=== PATIENT | male | born 1955 | race Caucasian/White ===

== ENCOUNTER → 2017-10-31 09:02 | Outpatient (CLI) | payer OTHER, SELFPAY ==
--- NOTE | 2017-10-31 09:05 | US_ITS ---
STUDY: ULTRASOUND BREAST - RIGHT REASON FOR EXAM: Male, 62 years old. Palpable lump in the right breast. TECHNIQUE: Axial and longitudinal images of the RIGHT breast were performed with a high resolution ultrasound transducer. COMPARISON: Comparison is made with prior mammogram done earlier today. FINDINGS: RIGHT Breast: The palpable abnormality corresponds to a 2.2 cm x 2.1 cm x 0.9 cm hypoechoic density just adjacent to the nipple. A biopsy is recommended for further evaluation. US/Breast Limited Unilateral IMPRESSION: 2.2 cm x 2.1 cm x 0.9 cm hypoechoic density adjacent to the nipple. A biopsy is recommended for further evaluation. ASSESSMENT CATEGORY: BIRADS Category 4: Suspicious - Biopsy Should Be Considered. A letter regarding these results will be sent to the patient by the facility within 30 days. Electronically Signed: John Gilmore MD at 10:49 EDT Tel [phone], Service support ,
--- NOTE | 2017-10-31 09:17 | BI_ITS ---
MAMMOGRAPHY - BILATERAL DIAGNOSTIC REASON FOR EXAM: Male, 62 years old. Right breast lump and tenderness for several months. PERTINENT HISTORY: Mother with breast cancer. TECHNIQUE: Digital bilateral breast cabrera (3D mammographic acquisition) in the CC and MLO projections. 2-D mediolateral oblique (MLO) and craniocaudad (CC) views of both breasts were obtained. CAD: Full Field Digital Mammography with Computer Added Detection was performed. COMPARISON: None. Baseline examination. FINDINGS: Breast Composition: There are scattered areas of fibroglandular density. There are no dominant masses or suspicious calcifications. Asymmetry of breast tissue were more breast tissue is seen in the retroareolar region of the right breast as compared to the left side. No other significant abnormalities are identified. BI/DIAG MAMM W/CAD, BILAT IMPRESSION: Negative diagnostic mammogram. With the patient's history of a palpable lump in the right breast, correlation with ultrasound is recommended. ASSESSMENT CATEGORY: BIRADS Category 0: Incomplete. Need additional imaging evaluation. A letter regarding these results will be sent to the patient by the facility within 30 days. Approximately 10% of breast cancers are not detected by mammography. A normal mammogram should not delay biopsy of a clinically suspicious abnormality. Electronically Signed: John Gilmore MD at 10:13 EDT Tel [phone], Service support ,
[2017-10-31 10:28] LABS: Absolute Lymphocyte Count 1.58 X10^3/ul (0.83-4.51); Absolute Neutrophil Count 2.1 X10^3/uL (2.0-7.7); Basophil# 0.05 X10^3/uL; Basophil% 1.1 % (0-1); Eosinophil# 0.17 X10^3/uL; Eosinophils% 3.9 % (0-5); Hematocrit 39.6 % (40-54); Hemoglobin 13.4 g/dl (13.0-16.5); Lymphocyte # 1.58 X10^3/ul (4.0); Lymphocyte % 36.2 % (19-41); Mean Corp Hgb Conc 33.8 g/gl (32-36); Mean Corpuscular Volume 88.6 fL (80-94); Mean Platelet Vol. 10.2 fl (6.2-12.0); Monocyte# 0.46 X10^3/uL; Monocyte% 10.5 % (0-10); Neutrophil # 2.11 X10^3/uL (2.7-7.7); Neutrophil % 48.3 % (47-70); POSITIVE COUNT NO; POSITIVE DIFFERENTIAL NO; POSITIVE MORPHOLOGY NO; Platelet Count 168 K/mm3 (150-450); RBC Distribution Width CV 13.5 % (11.6-14.6); RBC Distribution Width SD 43.5 fl (35.1-43.9); Red Blood Count 4.47 M/mm3 (4.6-6.2); White Blood Count 4.4 K/mm3 (4.4-11.0)
[2017-10-31 10:41] LABS: ALB/GLOB Ratio 1.6 RATIO (0.9-2.4); AST(SGOT) 21 U/L (15-37); Alanine Aminotransfer ALT/SGPT 25 U/L (16-61); Albumin, Serum 4.1 g/dL (3.2-5.0); Alkaline Phosphatase 60 U/L (45-117); Anion Gap 5 (5-15); BUN 18 mg/dL (7-18); BUN/Creat Ratio 19.8 RATIO (10-20); Calcium,Total 8.5 mg/dL (8.5-10.1); Chloride 109 mmol/L (98-107); Cholesterol 178 mg/dL (200); Creatinine, Serum 0.91 mg/dL (0.70-1.30); EST Glomerular Filtration Rate 89 mL/min (>60); Est Glom Filt Rate - Afr Amer 108 mL/min (>60); Globulin 2.5 g/dL (2.2-4.2); Glucose 81 mg/dL (74-106); High Density Lipoprotein 72 mg/dL; Potassium 4.1 mmol/L (3.5-5.1); Protein, Total 6.6 g/dL (6.4-8.2); Sodium Level 140 mmol/L (136-145); Triglycerides 72 mg/dL; Very Low Density Lipoprotein 14 mg/dL (5-40)
== END ==
PROVIDERS: Family Provider Internal Medicine; PCP Internal Medicine; Referring Provider Internal Medicine; Visit Provider Internal Medicine
DX: N63.10 Unspecified lump in the right breast, unspecified quadrant (principal); I51.9 Heart disease, unspecified; Q23.1 Congenital insufficiency of aortic valve
CPT/HCPCS: 36415; 76642; 77062; 77066; 80053; 80061; 85025; G0279

== ENCOUNTER → 2017-11-05 10:00 | Outpatient (CLI) | payer OTHER, SELFPAY ==
--- NOTE | 2017-11-05 | BRBX_PTH ---
PATIENT: AFSHIN FARFAN LOC: [facility] U#:[id number] AGE/SX: 69/M ROOM: RE11/05/[address]: Dr. Everardo Cordon MD : 1955 BED: DIS: SPEC #: [id number] RECD: 11/06/17 13:49 STATUS: AQUILINO FUENTES #: [id number] SEUN: 11/05/17 00:[address]: Everardo Cordon DEPT: SURGICAL PATHOLOGY RECD BY: George Marquez ENTERED: 11/06/17 13:50 SP TYPE: BREAST BX OTHR DR: Dr. Araceli Lee MD Tissues: Right breast, NOS Procedures: Surgery Specimen Level IV HEADER OPERATION: Right breast mammotome biopsy PRE-OP DIAGNOSIS: Right breast mass TISSUE SUBMITTED: Right breast tissue ISCHEMIC TIME: 1 second FIXATION TIME: 31.5 hours MICROSCOPIC DIAGNOSIS Right breast, mammotome core biopsy: Male breast tissue, consistent with gynecomastia. CHAI:rodolfo 11/07/17 COMMENT Please make reference to previous specimen ([id number]) left breast lump, core biopsy with diagnosis of male breast tissue, negative for malignancy. MICROSCOPIC DESCRIPTION Slides are reviewed. GROSS DESCRIPTION Received in fixative is one container labeled with the patient's name and designated right breast. The specimen consists of three elongated fragments of camacho-yellow fibroadipose tissue that in aggregate measure 2 x 0.6 x 0.1 cm. The entire specimen is submitted in one cassette. / CAHI:rodolfo 11/06/17 TC:5 CPT: 81658
== END ==
PROVIDERS: Family Provider Internal Medicine; PCP Internal Medicine; Referring Provider Surgery; Visit Provider Surgery
DX: N63.10 Unspecified lump in the right breast, unspecified quadrant (principal)
CPT/HCPCS: 88305

== ENCOUNTER → 2018-05-23 08:54 | Outpatient (CLI) | payer OTHER, SELFPAY ==
--- NOTE | 2018-05-23 08:55 | RAD_ITS ---
STUDY: X-RAY - LEFT KNEE REASON FOR EXAM: Male, 63 years old. Pain. TECHNIQUE: 5 view(s) of the knee. COMPARISON: None. FINDINGS: There is generalized osteopenia. There is lateral plate-screw fixation of the proximal tibia. Normal proximal tibiofibular articulation. There is a corticated lucency through the inferior portion of the patella compatible with remote trauma. 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 There is chondrocalcinosis. RAD/Knee 4 or More Views IMPRESSION: Osteopenia with postsurgical changes of the proximal tibia. Corticated lucency through the patella compatible with remote trauma. Tricompartmental arthrosis. Chondrocalcinosis. Electronically Signed: Anoop Cox MD at 17:17 EDT , Service support ,
== END ==
PROVIDERS: Family Provider Internal Medicine; PCP Internal Medicine; Referring Provider Orthopaedic Surgery; Visit Provider Orthopaedic Surgery
DX: M25.562 Pain in left knee (principal)
CPT/HCPCS: 73564

== ENCOUNTER → 2018-05-24 10:34 | Outpatient (CLI) | payer OTHER, SELFPAY ==
[2017-11-28 14:28] VITALS: BMI 21.3
--- NOTE | 2018-05-24 10:36 | ECHOD_ITS ---
Reason For Study: Valve Evaluation Procedure This was a 2D Doppler, Color Flow transthoracic echocardiogram. Exam performed in department. Left Ventricle Normal LV size. Mild concentric left ventricular hypertrophy. Left ventricular systolic function is normal. The estimated ejection fraction is 55 %. Stage 2 diastolic dysfunction. No regional wall motion abnormalities noted. Right Ventricle Normal RV size. Normal systolic function. Atria The left atrium is moderately enlarged. The right atrium is mildly enlarged. Mitral Valve Normal mitral valve. Mild (1+) eccentric mitral valve insufficiency. Tricuspid Valve Normal tricuspid valve. Mild (1+) tricuspid valve insufficiency. Pulmonary artery systolic pressure is 40 mmHg. Aortic Valve Moderate focal aortic valve calcification. Repaired Bicuspid. Peak aortic valve gradient 130 mmHg. Mean aortic valve gradient 78 mmHg. Severe aortic stenosis. Calculated aortic valve area (continuity equation) is 0.5 cm2. Mild (1+) aortic valve insufficiency. Pulmonic Valve Normal pulmonic valve. Great Vessels Normal aortic root. The pulmonary artery is normal size. Normal inferior vena cava. Pericardium/Pleural No pericardial effusion. MMode/2D Measurements & Calculations LVIDd: 5.6 cm IVSd: 1.2 cm LVOT diam: 2.1 cm LVIDs: 4.0 cm LVPWd: 1.3 cm LVOT area: 3.6 cm2 RVDd: 4.0 cm FS: 28.4 % Ao root diam: 3.4 cm LAV(MOD-bp): 102.1 ml LA A4 area: 27.6 cm2 ACS: 0.53 cm LAV(MOD-bp) Indexed: 54.0 ml/m2 LAV(MOD-sp2): 101.0 ml LAV(MOD-sp4): 97.1 ml RA A4 area: 20.1 cm2 Time Measurements MV dec time: 0.30 sec Doppler Measurements & Calculations MV E max dane: 74.0 cm/sec Lat Peak E' Adne: 4.8 cm/sec Med Peak E' Dane: 8.0 cm/sec MV A max dane: 53.4 cm/sec E/E' lat: 15.3 E/E' med: 9.2 MV E/A: 1.4 MV V2 max: 96.2 cm/sec MV P1/2t max dane: 95.3 cm/sec Ao V2 max: 570.1 cm/sec MV max P.7 mmHg MV P1/2t: 47.7 msec Ao max P.1 mmHg MV V2 mean: 46.2 cm/sec MV dec slope: 585.7 cm/sec2 Ao V2 mean: 412.7 cm/sec MV mean P.1 mmHg Ao mean P.1 mmHg MV V2 VTI: 22.0 cm MVA(P1/2t): 4.6 cm2 Ao V2 VTI: 153.4 cm MVA(VTI): 3.9 cm2 RADHA(I,D): 0.56 cm2 RADHA(V,D): 0.52 cm2 AI max dane: 357.2 cm/sec LV V1 max: 84.0 cm/sec SV(LVOT): 85.5 ml AI max P.0 mmHg LV V1 max P.8 mmHg LV V1 mean P.7 mmHg AI dec slope: 181.8 cm/sec2 LV V1 mean: 59.9 cm/sec AI P1/2t: 575.6 msec LV V1 VTI: 24.1 cm PA V2 max: 97.4 cm/sec TR max dane: 297.0 cm/sec TR max P.5 mmHg Interpretation Summary Normal LV size. Mild concentric left ventricular hypertrophy. Left ventricular systolic function is normal. The estimated ejection fraction is 55 %. Stage 2 diastolic dysfunction. Pulmonary artery systolic pressure is 40 mmHg. Mean aortic valve gradient 78 mmHg. Severe aortic stenosis. Calculated aortic valve area (continuity equation) is 0.5 cm2. Compared to the previous the AV is worse. Compared to the previous the AV is worse. Ordering Physician: Jerzy Guo Referring Physician: Jerzy Guo Performed By: Van Quintanilla RCS
== END ==
PROVIDERS: Family Provider Internal Medicine; PCP Internal Medicine; Referring Provider Internal Medicine Cardiovascular Disease; Visit Provider Internal Medicine Cardiovascular Disease
DX: Z86.79 Personal history of other diseases of the circulatory system (principal); Z98.890 Other specified postprocedural states
CPT/HCPCS: 93306

== ENCOUNTER → 2018-05-28 10:38 | Outpatient (CLI) | payer OTHER, SELFPAY ==
[2018-05-24 09:47] VITALS: BMI 21.4
[2018-05-28 11:55] LABS: Anion Gap 7 (5-15); BUN 17 mg/dL (7-18); BUN/Creat Ratio 17.7 RATIO (10-20); Calcium,Total 8.6 mg/dL (8.5-10.1); Chloride 107 mmol/L (98-107); Creatinine, Serum 0.96 mg/dL (0.70-1.30); EST Glomerular Filtration Rate 83 mL/min (>60); Est Glom Filt Rate - Afr Amer 101 mL/min (>60); Glucose 91 mg/dL (74-106); Potassium 4.4 mmol/L (3.5-5.1); Sodium Level 142 mmol/L (136-145)
== END ==
PROVIDERS: Family Provider Internal Medicine; PCP Internal Medicine; Referring Provider Nurse Practitioner Family; Visit Provider Nurse Practitioner Family
DX: Q23.1 Congenital insufficiency of aortic valve (principal); I49.3 Ventricular premature depolarization
CPT/HCPCS: 36415; 80048

== ENCOUNTER → 2018-06-24 08:53 | Outpatient (CLI) | payer OTHER, SELFPAY ==
[2018-05-24 09:47] VITALS: BMI 21.4
--- NOTE | 2018-06-24 08:54 | ECHOTEE_ITS ---
Reason For Study: BICUSPID AV Medication ELLE probe passed without difficulty. No complications were noted. Cetacaine Topical [place] given X3 orally. Versed 1 mg given slow IVP. Fentanyl 25 mcg given slow IVP. Left Ventricle Normal LV size. Left ventricular systolic function is normal. The estimated ejection fraction is 60 %. No regional wall motion abnormalities noted. Right Ventricle Normal RV size. Normal systolic function. Atria Intact atrial septum. The left atrium is mildly enlarged. No thrombus is detected in the left atrial appendage. Normal right atrium. Mitral Valve Normal mitral valve. Mild (1+) eccentric mitral valve insufficiency. Tricuspid Valve Normal tricuspid valve. Mild tricuspid valve insufficiency. Aortic Valve Bicuspid aortic valve. Moderate aortic stenosis. Mild-Moderate (1-2+) eccentric aortic valve insufficiency. Pulmonic Valve Normal pulmonic valve. Vessels Normal aortic root. Normal arch. The pulmonary artery is normal size. Pericardium No pericardial effusion. Interpretation Summary Normal LV size. Left ventricular systolic function is normal. The estimated ejection fraction is 60 %. No thrombus is detected in the left atrial appendage. Mild (1+) eccentric mitral valve insufficiency. Mild tricuspid valve insufficiency. Moderate aortic stenosis. Bicuspid aortic valve. Mild-Moderate (1-2+) eccentric aortic valve insufficiency. Ordering Physician: Jerzy Guo Referring Physician: Araceli Lee Performed By: Erin Montemayor, RDCS, RVT
== END ==
LOC: CVS 08:54
PROVIDERS: Family Provider Internal Medicine; PCP Internal Medicine; Referring Provider Internal Medicine Cardiovascular Disease; Visit Provider Internal Medicine Cardiovascular Disease
DX: Q23.1 Congenital insufficiency of aortic valve (principal); I49.3 Ventricular premature depolarization; I71.2 Thoracic aortic aneurysm, without rupture; Z86.79 Personal history of other diseases of the circulatory system; Z98.890 Other specified postprocedural states
CPT/HCPCS: 93312; 93320; 93325; J7040; A4216

== ENCOUNTER 2018-08-22 09:35 | Inpatient (IN) | payer OTHER, SELFPAY ==
[2018-07-18 13:28] VITALS: BMI 21.4
[2018-08-22] VITALS (13 sets, daily range): BP systolic 108–122; BP diastolic 57–89; PULSE 67–82; RESP 13–18; TEMP 36.6–37.1; O2SAT 92–98; BMI 21.2; BMI 20.8
--- NOTE | 2018-08-22 09:57 | NURSING ---
PAGED NEUROLOGY FOR
--- NOTE | 2018-08-22 10:13 | CT_ITS ---
STUDY: CT BRAIN WITHOUT CONTRAST REASON FOR EXAM: Male, 63 years old. [place] onset of visual changes. RADIATION DOSAGE (If Supplied By Facility): CTDIvol = ( 44.99 ) mGy, DLP = ( 796.11 ) mGycm TECHNIQUE: Transaxial CT imaging of the brain was performed without administration of intravenous contrast material. Individualized dose optimization techniques were used for this CT. COMPARISON: No relevant priors. FINDINGS: Normal soft tissue structures. Normal calvarium. Focal area of decreased attenuation in the insular cortex of the left temporal lobe. This may represent changes secondary to early ischemic changes. Normal size ventricles and extra-axial spaces for the patient's age. Normal white matter tracts of the cerebral hemispheres. Normal basal ganglia and thalami. Normal brainstem. Normal cerebellum. There is no intracranial hemorrhage. There are no findings of an acute ischemic infarction. Normal visualized paranasal sinuses. CT/Brain/Head without Contrast IMPRESSION: Focal hypodensity seen in the insular cortex of the left temporal lobe. Focal ischemic change should be ruled out. Electronically Signed: John Gilmore, at 11:07 EDT , Service support ,
--- NOTE | 2018-08-22 10:13 | EKG12_ITS ---
Test Reason : DYSRHYTHMIA Blood Pressure : / mmHG Vent. Rate : 071 BPM Atrial Rate : 071 BPM P-R Int : 208 ms QRS Dur : 104 ms QT Int : 404 ms P-R-T Axes : 020 013 138 degrees QTc Int : 439 ms Normal sinus rhythm Left ventricular hypertrophy with repolarization abnormality Abnormal ECG Confirmed by SADAF PARKER, WENDY ([id number]), dictionary editor MANDO LING ([id number]) on 08/26/2018 12:49:03 PM Referred By: Jesus Alberto Reilly Confirmed By:WENDY TALAVERA MD
--- NOTE | 2018-08-22 10:15 | RAD_ITS ---
STUDY: X-RAY CHEST REASON FOR EXAM: Male, 63 years old. Visual changes and possible stroke. TECHNIQUE: Single AP portable view of the chest. COMPARISON: None. FINDINGS: Surgical clips are seen overlying the lateral aspect of the right upper lobe. There is blunting of the left costo phrenic angle with underlying atelectasis and/or infiltration. Sternal cerclage wires and vascular clips are present from a prior sternotomy and coronary artery bypass graft procedure (CABG). Normal mediastinum and oliverio. Normal visualized pulmonary arteries. Normal visualized aortic arch and descending thoracic aorta. Normal visualized thoracic spine. Normal visualized ribs, clavicles, and shoulders. There is no demonstrated abnormality of the visualized soft tissue structures of the upper abdomen. RAD/Chest 1 View IMPRESSION: Blunting of the left costophrenic angle with increased markings at the left lung base suggestive of atelectasis. Electronically Signed: John Gilmore, at 10:42 EDT , Service support ,
--- NOTE | 2018-08-22 10:16 | NURSING ---
NEUROLOGY CALLED BACK
--- NOTE | 2018-08-22 10:30 | ED.VIS.GEN ---
History of Present Illness Chief Complaint: Eye Problem Narrative: Patient is presenting from the ophthalmology office for a stroke work-up. Patient has a history of having a open heart surgery 8 days ago where he received a bovine aortic valve due to a failing bicuspid valve. Patient apparently 2 days ago noted that he was having some visual field loss in his left upper visual field, specifically his left eye. He reports that that spontaneously resolved. He was recommended to be evaluated by an wallpaperer. Ophthalmology today noted that the patient had a large plaque in 1 of his retinal vessels which places him at a higher risk for stroke and recommended that he come to the emergency department for initiation of a stroke work-up. Patient currently is asymptomatic, and reports only mild to moderate pain from his incision. No infectious signs or symptoms. No prior history of stroke, no history of cardiovascular disease. Review of systems otherwise negative. Past Medical History - Allergies and Home Meds Allergies/Adverse Reactions: Allergies No Known Allergies Allergy (Verified 08/22/18 09:37) Surgical History: - - Aortic root aneurysm repair, unclear valve surgery (NOT replacement), left knee surgery. Smoking Status: Never smoker Review of Systems All systems negative except as indicated Eyes: Reports: Visual changes - left Neurological: Denies: Headache, Weakness, Parasthesia, Numbness Physical Exam Vital Signs/Narrative: Vital Signs Temp Pulse Resp BP Pulse Ox 08/22/18 10:02 97.9 F 08/22/18 09:37 97.9 F 78 17 118/69 98 General: Well nourished, Well developed, No Acute Distress Head: Normocephalic, Atraumatic Eyes: Perrl, EOMI ENT: Moist mucous membranes, No rhinorrhea Neck: Supple, Nontender Cardiovascular: Regular rate, Regular rhythm, No murmurs, - - 2+ radial pulses bilaterally symmetric Respiratory: No distress, CTA bilaterally, Chest nontender, - - Very large well-healing midline surgical scar without evidence of erythema drainage induration or fluctuance. Abdomen: Soft, Nontender, Nondistended, Normal bowel sounds Back: Nontender, Normal Inspection Extremities: Nontender, No edema Skin: Normal color, No rash Neurological: Alert, Oriented x3, Cranial nerves II-XII grossly intact, Normal Strength, Normal Sensation, - - NIH stroke scale is 0 Psychological: Normal affect, Normal Mood Diagnostic/Tx/Re-eval - EKG Initial EKG Interpretation: - - Sinus rhythm at 71 with LVH, T wave inversions laterally that were present in a prior EKG, OR prolongation of 208 without any evidence of second or third-degree block, normal QTC. - Medical Decision Making Patient presented for a stroke work-up given that he had a finding of a retinal vessel plaque on a dilated ophthalmologic exam. He currently has an NIH of 0 there is no indication for stroke team. I discussed patient's case on the telephone with covering neurology Dr. Peres who recommended that the patient receive a full emergency department and inpatient stroke work-up. Patient CT brain showed a subtle lucency on the left that will require MRI for follow-up. The remainder of the patient's imaging and laboratory work-up were found to be negative. Patient was admitted for further stroke work-up to the hospitalist. ED Disposition - Plan for ED Patient: Disposition: [facility] Diagnosis: Visual changes
[2018-08-22 10:41] LABS: Absolute Lymphocyte Count 0.73 X10^3/uL (0.83-4.51); Absolute Neutrophil Count 4.9 X10^3/uL (2.0-7.7); Basophil# 0.05 X10^3/uL; Basophil% 0.7 % (0-1); Eosinophil# 0.38 X10^3/uL; Eosinophils% 5.5 % (0-5); Hematocrit 35.5 % (40-54); Hemoglobin 11.9 g/dL (13.0-16.5); Lymphocyte # 0.73 X10^3/ul (4.0); Lymphocyte % 10.6 % (19-41); Mean Corp Hgb Conc 33.5 g/dL (32-36); Mean Corpuscular Hgb 30.4 pg (27.0-32.0); Mean Corpuscular Volume 90.6 fL (80-94); Mean Platelet Vol. 9.3 fl (6.2-12.0); Monocyte# 0.71 X10^3/uL; Monocyte% 10.3 % (0-10); NRBC Flagged by Analyzer 0 % (0-5); Neutrophil # 4.93 X10^3/uL (2.7-7.7); Neutrophil % 71.7 % (47-70); Platelet Count 301 K/mm3 (150-450); RBC Distribution Width CV 13.3 % (11.6-14.6); RBC Distribution Width SD 44.5 fl (35.1-43.9); Red Blood Count 3.92 M/mm3 (4.6-6.2); White Blood Count 6.9 K/mm3 (4.4-11.0)
--- NOTE | 2018-08-22 10:47 | CT_ITS ---
STUDY: CTA HEAD AND NECK WITH CONTRAST REASON FOR EXAM: Male, 63 years old. Visual changes. RADIATION DOSAGE (If Supplied By Facility): CTDIvol = ( 23.12 ) mGy, DLP = ( 720.91 ) mGycm TECHNIQUE: CT angiography was performed with a multi-detector CT scanner. Data acquisition was obtained from the skull base through the vertex following intravenous administration of 100mL IV Isovue 370. MIP images were reconstructed from the axial data set. Post-processing of the angiographic images was performed, with multiplanar reformation and 3D reconstruction. Individualized dose optimization techniques were used for this CT. COMPARISON: No relevant priors. FINDINGS: Normal bilateral petrous carotid arteries. Normal right cavernous carotid artery with a normal supraclinoid bifurcation. Normal left cavernous carotid artery with a normal supraclinoid bifurcation. Normal right A1 segments of the anterior cerebral artery. Normal left A1 segments of the anterior cerebral artery. Normal intact anterior communicating artery (ACOM). Normal bilateral A2 segments of the anterior cerebral arteries. Normal right M1 and M2 segments of the middle cerebral arteries, with a normal M1 bifurcation. Normal left M1 and M2 segments of the middle cerebral arteries, with a normal M1 bifurcation. Normal right posterior communicating artery (PCOM). Normal left posterior communicating artery (PCOM). Normal bilateral vertebral arteries. Normal basilar artery with a normal basilar bifurcation. The visualized bilateral superior cerebellar (SCA) arteries are normal. Normal bilateral P1, P2 and visualized P3 segments of the posterior cerebral arteries. There is no demonstrated aneurysm of the [place]. There is no demonstrated abnormality of the visualized brain. AORTIC ARCH: There is atherosclerotic calcific plaque formation of the aortic arch and great vessels arising from the aortic arch, without a hemodynamically significant stenosis. There is a normal origin of the brachiocephalic, left common carotid, and left subclavian arteries. RIGHT CAROTID ARTERIES: Normal right common carotid artery (CCA). Normal right common carotid bulb. Normal origin of the right internal carotid (ICA) artery without a hemodynamically significant stenosis. Normal visualized cervical portion of the right internal carotid artery. Normal origin of the right external carotid artery (ECA). LEFT CAROTID ARTERIES: Normal left common carotid artery (CCA). Normal left common carotid bulb. There is mild atherosclerotic plaque formation of the origin of the left internal carotid artery with less than 50% cross sectional diameter stenosis. Normal visualized cervical portion of the left internal carotid artery. Normal origin of the left external carotid artery (ECA). VERTEBRAL ARTERIES: Normal bilateral vertebral arteries. CT/CTA Head AND Neck W/ Contrast IMPRESSION: Minimal calcific plaque at the origin of the left internal carotid artery. Electronically Signed: John Gilmore, at 12:16 EDT , Service support ,
--- NOTE | 2018-08-22 10:47 | NURSING ---
NEUROLOGY IN ROOM
--- NOTE | 2018-08-22 10:49 | CON.PCM_ITS ---
Problem List (1) Visual disturbance Status: Acute Reason for Consult Date of Consultation: 08/22/18 Reason for Consultation: visual disturbance History of Present Illness: The patient is a 63 year old M with recent aortic valve replacement on 08/14/18 at [facility] admitted with visual disturbances. Per patient on 08/20/18 he was discharged home from [facility], after coming home he felt he saw a shadow out of the left eye at the upper quadrant and had vision loss for about 3-4 hrs in the left eye superior quadrant, following which symptoms completely improved, was recommended to see ophthalmology by [facility], whom he saw today 08/22/18 and was told he has plaque in retinal vessel and were concerned for possible stroke and patient was sent to ED. At present patient denies any visual disturbances, VIEIRA, dizziness, focal motor weakness, sensory loss or speech disturbances. NIHSS on admission was 0 [] Past Medical History Past Medical History (Chronic Problems): Chronic Problems (Last Updated 08/19/18 @ 17:30 by Conchis Martínez) Situational anxiety (Chronic) Secondary pulmonary arterial hypertension (Chronic) Non-rheumatic aortic stenosis (Chronic) Nonrheumatic aortic (valve) insufficiency (Chronic) Lump of right breast (Chronic) Bicuspid aortic valve (Chronic) 12/31/09, Bicuspid aortic valve repair & ascending aorta replacement using minimally invasive incision Premature ventricular contractions (Chronic) Thoracic aortic aneurysm (Chronic) Bicuspid aortic valve repair and ascending aorta replacement 12/31/09 Medical History: Medical History (Last Updated 08/19/18 @ 17:30 by Conchis Martínez) Situational anxiety (Chronic) F41.8 Secondary pulmonary arterial hypertension (Chronic) I27.21 Non-rheumatic aortic stenosis (Chronic) I35.0 Nonrheumatic aortic (valve) insufficiency (Chronic) I35.1 Lump of right breast (Chronic) N63.10 Bicuspid aortic valve (Chronic) Q23.1 12/31/09, Bicuspid aortic valve repair & ascending aorta replacement using minimally invasive incision Premature ventricular contractions (Chronic) I49.3 Thoracic aortic aneurysm (Chronic) I71.2 Bicuspid aortic valve repair and ascending aorta replacement 12/31/09 Dilated aortic root I77.810 Dizziness and giddiness R42 Osteoarthritis M19.90 Heart disease (Inactive) I51.9 Allergies No Known Allergies Allergy (Verified 08/22/18 09:37) Home Medications: Ambulatory Orders Medication Instructions Recorded Aspirin [Aspirin, Baby] 81 mg PO QHS 12/08/12 metoprolol tartrate 25 mg tablet 12.5 mg PO DAILY #45 tab 03/27/18 Furosemide [Lasix] 20 mg PO DAILY 08/22/18 Multivitamin [Multiple Vitamins] 1 ea PO DAILY 08/22/18 Oxycodone [Oxyir] 5 mg PO Q6H PRN PRN 08/22/18 Pantoprazole Sodium [Protonix] 20 mg PO DAILY 08/22/18 Polyethylene Glycol 3350 [Miralax] 17 gm PO DAILY 08/22/18 Potassium Chloride 10 meq PO DAILY 08/22/18 Surgical History: Surgical History (Last Updated 08/19/18 @ 17:30 by Conchis Martínez) H/O aortic valve replacement (Resolved) Onset Date: 08/14/18 Z95.2 AVR w/ debridement of anterior mitral leaflet and repair ascending aorta graft 08/14/18 Hx of aortic valve repair (Resolved) Onset Date: 12/31/09 Z98.890, Z86.79 Bicuspid aortic valve repair and ascending aorta replacement 12/31/09 History of appendectomy Z90.49 Hx of knee surgery Z98.890 Left H/O right breast biopsy Onset Date: 11/2017 Z98.890 History of orthopedic surgery Z98.890 Lt Tibia Nilesh placed Surgical History: - - Aortic root aneurysm repair, unclear valve surgery (NOT replacement), left knee surgery. Psychiatric History: No pertinent psych hx Lives: Spouse/ Significant Other Smoking Status: Never smoker Alcohol: None Drugs: None Review of Systems Constitutional: Reports: - - complete ROS negative except as documented in HPI Patient Problems: Active and Suspected Problems (Last Updated 08/19/18 @ 17:30 by Conchis Martínez) Visual disturbance (Acute) - Physical Exam General: Alert HEENT: Normocephalic Neck: Supple Lungs: Normal air movement Cardiovascular: Normal S1, Normal S2 Abdomen: Bowel Sounds Present Extremities: No cyanosis Neurological: - - consious, alert, AoAx3, CN 2-12 grossly intact, power 5/5 all 4 extremities, no sensory loss, no cerebellar signs, Reflexes + B/L B/S/T/K/A, gait deferred, NIHSS 0 at present, mRS 0 at baseline Psych/Mental Status: Normal Affect Vital Signs Temp Pulse Resp BP Pulse Ox 97.9 F 78 17 118/69 98 08/22/18 10:02 08/22/18 09:37 08/22/18 09:37 08/22/18 09:37 08/22/18 09:37 Oxygen Delivery Method Room Air Weight: 69 kg Body Mass Index (BMI) 21.2 Laboratory Tests Past 24 Hrs 08/22/18 08/22/18 08/22/18 10:25 10:25 10:25 WBC 6.9 RBC 3.92 L Hgb 11.9 L Hct 35.5 L MCV 90.6 MCH 30.4 MCHC 33.5 RDW Std Deviation 44.5 H RDW Coeff of Stephan 13.3 Plt Count 301 MPV 9.3 Immature Gran % (Auto) 1.200 H Neut % (Auto) 71.7 H Lymph % (Auto) 10.6 L [place] % (Auto) 10.3 H Eos % (Auto) 5.5 H Baso % (Auto) 0.7 Absolute Neuts (auto) 4.9 Absolute Lymphs (auto) 0.73 L Absolute Nucleated RBC 0.00 Nucleated RBC % 0 PT Pending INR Pending APTT Pending Sodium Potassium Chloride Carbon Dioxide Anion Gap BUN Creatinine Est GFR (MDRD) Af Amer Est GFR (MDRD) Non-Af BUN/Creatinine Ratio Glucose Calcium Troponin I Triglycerides Pending Cholesterol Pending LDL Cholesterol Pending VLDL Cholesterol Pending HDL Cholesterol Pending 08/22/18 10:25 WBC RBC Hgb Hct MCV MCH MCHC RDW Std Deviation RDW Coeff of Stephan Plt Count MPV Immature Gran % (Auto) Neut % (Auto) Lymph % (Auto) [place] % (Auto) Eos % (Auto) Baso % (Auto) Absolute Neuts (auto) Absolute Lymphs (auto) Absolute Nucleated RBC Nucleated RBC % PT INR APTT Sodium Pending Potassium Pending Chloride Pending Carbon Dioxide Pending Anion Gap Pending BUN Pending Creatinine Pending Est GFR (MDRD) Af Amer Pending Est GFR (MDRD) Non-Af Pending BUN/Creatinine Ratio Pending Glucose Pending Calcium Pending Troponin I Pending Triglycerides Cholesterol LDL Cholesterol VLDL Cholesterol HDL Cholesterol Assessment/Plan All Active Problems (Last Updated 08/19/18 @ 17:30 by Conchis Martínez) Visual disturbance (Acute) H/O aortic valve replacement (Resolved 08/14/18) Hx of aortic valve repair (Resolved 12/31/09) The patient is a 63 year old M with recent aortic valve replacement on 08/14/18 at [facility] admitted with visual disturbances. Per patient on 08/20/18 he was discharged home from [facility], after coming home he felt he saw a shadow out of the left eye at the upper quadrant and had vision loss for about 3-4 hrs in the left eye superior quadrant, following which symptoms completely improved, was recommended to see ophthalmology by [facility], whom he saw today 08/22/18 and was told he has plaque in retinal vessel and were concerned for possible stroke and patient was sent to ED. At present patient denies any visual disturbances, VIEIRA, dizziness, focal motor weakness, sensory loss or speech disturbances. NIHSS on admission was 0 Impression Possible TIA vs R/O stroke Plan -On ASA -Start Lipitor 40 mg PO q hs. -MRI brain w/o contrast -CTA head/neck- Left ICA < 50% stenosis -TTE, LDL, Hba1c -Frequent neurochecks -Goal BP < 130/80 mmHg, goal Hba1c < 7 -Cardiology consult -Stroke risk factors discussed and stroke education provided -PT/OT -GI/DVT prophylaxis -Fall precautions -Further medical management per hospitalist team -Please call with questions if any -Thank you for allowing us to participate in patient's care and management. Code Visit Inpatient E&M: [id number] Init Hosp L3
[2018-08-22 10:54] LABS: Cholesterol 136 mg/dL (200); High Density Lipoprotein 49 mg/dL; Triglycerides 97 mg/dL; Very Low Density Lipoprotein 19 mg/dL (5-40)
[2018-08-22 10:56] LABS: International Normalized Ratio 1.1; Prothrombin Time (Protime)PT. 14.2 SECONDS (11.7-14.9)
[2018-08-22 10:57] LABS: Partial Thromboplast Time 44.8 Seconds (24.1-36.2)
[2018-08-22 11:04] LABS: Anion Gap 5 (5-15); BUN 15 mg/dL (7-18); BUN/Creat Ratio 15.9 RATIO (10-20); Chloride 104 mmol/L (98-107); Creatinine, Serum 0.95 mg/dL (0.70-1.30); EST Glomerular Filtration Rate 85 mL/min (>60); Est Glom Filt Rate - Afr Amer 103 mL/min (>60); Estimated Creatinine Clearance 76.67 ml/min; Glucose 97 mg/dL (74-106); Potassium 4.2 mmol/L (3.5-5.1); Sodium Level 137 mmol/L (136-145)
[2018-08-22 11:36] LABS: Bedside Glucose 90 mg/dL (70-110)
--- NOTE | 2018-08-22 12:46 | NURSING ---
PCU OBS VISION CHANGES ZOELETSKY
--- NOTE | 2018-08-22 13:22 | MRI_ITS ---
We are attempting to reach an attending provider to discuss findings. An addendum with communication details will be sent when the communication is complete. HISTORY: Visual changes, recent heart valve replacement 08/14/2018 COMPARISON: CT brain 08/22/2018 TECHNIQUE: Multisequence multiplanar MR imaging of the brain per department protocol without intravenous gadolinium. # of images including paperwork: 287 FINDINGS: BRAIN: Diffusion-weighted imaging shows a tiny acute infarct within the medial left cerebellum seen by hyperintense signal on DWI with corresponding decreased signal on ADC maps. No other areas of restricted diffusion to suggest additional sites of acute infarct. There is a small focus of old hemosiderin deposition within the right cerebellum near the vermis. No remote parenchymal infarct. No acute parenchymal hemorrhage, infarct, intra-axial mass, mass effect, or midline shift. No abnormal extra-axial fluid collections. VENTRICLES: Ventricles are normal in size and configuration. No hydrocephalus. Mild deep and periventricular white matter changes as seen by small foci of FLAIR and T2 hyperintense signal. PARANASAL SINUSES: Visualized paranasal sinuses are clear. MASTOIDS: Mastoid air cells are clear. ORBITS: Orbits are unremarkable. MRI/Brain without Contrast IMPRESSION: 1. Tiny acute left cerebellar infarct. No hemorrhagic transformation. 2. No other areas of acute infarct or acute intracranial disease. 3. Small focus of hemosiderin deposition right cerebellum compatible with either old hemorrhagic infarct versus cerebral cavernous venous malformation (AKA cavernoma). 4. Mild chronic small vessel ischemic white matter changes. at 1543 Reported and signed by: Guanako Bolivar MD Electronically Signed: Guanako Bolivar MD at 15:42 EDT Tel , Service support ,
--- NOTE | 2018-08-22 16:35 | HP.PCM_ITS ---
Problem List (1) Visual disturbance Status: Acute (2) H/O aortic valve replacement Status: Resolved Comment: AVR w/ debridement of anterior mitral leaflet and repair ascending aorta graft 08/14/18 (3) Situational anxiety Status: Chronic (4) Secondary pulmonary arterial hypertension Status: Chronic (5) Non-rheumatic aortic stenosis Status: Chronic (6) Nonrheumatic aortic (valve) insufficiency Status: Chronic (7) Lump of right breast Status: Chronic (8) Bicuspid aortic valve Status: Chronic Comment: 12/31/09, Bicuspid aortic valve repair & ascending aorta replacement using minimally invasive incision (9) Premature ventricular contractions Status: Chronic (10) Thoracic aortic aneurysm Status: Chronic Qualifiers: Presence of rupture: without rupture Qualified Code(s): I71.2 - Thoracic aortic aneurysm, without rupture Comment: Bicuspid aortic valve repair and ascending aorta replacement 12/31/09 (11) Hx of aortic valve repair Status: Resolved Comment: Bicuspid aortic valve repair and ascending aorta replacement 12/31/09 History of Present Illness Date of Admission: 08/22/18 Chief Complaint: Vision changes. The patient is a 63 year old M who presented to the emergency room due to vision changes. Patient was recently discharged home from [facility] after undergoing aortic valve replacement 08/14/2018. He reports he had a phone call follow-up with [facility] where he told them he has been having left eye vision changes including a shadowing of the upper eye since being discharged on 08/20/2017. He was instructed to have his vision checked by ophthalmology in which he saw earlier today. He was told he had plaque in a retinal vessel and was referred to ER for stroke work-up. He denies numbness, tingling, focal deficits, speech changes or other neurologic symptoms. Vision changes have currently resolved. He has a past medical history of bicuspid aortic valve status post repair and a sending aorta replacement December 2009, GERD. Past Medical History Past Medical History (Chronic Problems): Chronic Problems (Last Updated 08/19/18 @ 17:30 by Conchis Martínez) Situational anxiety (Chronic) Secondary pulmonary arterial hypertension (Chronic) Non-rheumatic aortic stenosis (Chronic) Nonrheumatic aortic (valve) insufficiency (Chronic) Lump of right breast (Chronic) Bicuspid aortic valve (Chronic) 12/31/09, Bicuspid aortic valve repair & ascending aorta replacement using minimally invasive incision Premature ventricular contractions (Chronic) Thoracic aortic aneurysm (Chronic) Bicuspid aortic valve repair and ascending aorta replacement 12/31/09 Medical History: Medical History (Last Updated 08/19/18 @ 17:30 by Conchis Martínez) Situational anxiety (Chronic) F41.8 Secondary pulmonary arterial hypertension (Chronic) I27.21 Non-rheumatic aortic stenosis (Chronic) I35.0 Nonrheumatic aortic (valve) insufficiency (Chronic) I35.1 Lump of right breast (Chronic) N63.10 Bicuspid aortic valve (Chronic) Q23.1 12/31/09, Bicuspid aortic valve repair & ascending aorta replacement using minimally invasive incision Premature ventricular contractions (Chronic) I49.3 Thoracic aortic aneurysm (Chronic) I71.2 Bicuspid aortic valve repair and ascending aorta replacement 12/31/09 Dilated aortic root I77.810 Dizziness and giddiness R42 Osteoarthritis M19.90 Heart disease (Inactive) I51.9 Allergies No Known Allergies Allergy (Verified 08/22/18 09:37) Home Medications: Ambulatory Orders Medication Instructions Recorded Aspirin [Aspirin, Baby] 81 mg PO QHS 12/08/12 Furosemide [Lasix] 20 mg PO QODAY 08/22/18 Metoprolol Tartrate 12.5 mg PO BID 08/22/18 Multivitamin [Multiple Vitamins] 1 ea PO DAILY 08/22/18 Oxycodone [Oxyir] 5 mg PO Q6H PRN PRN 08/22/18 Pantoprazole Sodium [Protonix] 20 mg PO DAILY 08/22/18 Polyethylene Glycol 3350 [Miralax] 17 gm PO DAILY 08/22/18 Potassium Chloride 10 meq PO DAILY 08/22/18 Surgical History: Surgical History (Last Reviewed 08/22/18 @ 16:59 by Savanna Sawyer NP-Mark) H/O aortic valve replacement (Resolved) Onset Date: 08/14/18 Z95.2 AVR w/ debridement of anterior mitral leaflet and repair ascending aorta graft 08/14/18 Hx of aortic valve repair (Resolved) Onset Date: 12/31/09 Z98.890, Z86.79 Bicuspid aortic valve repair and ascending aorta replacement 12/31/09 History of appendectomy Z90.49 Hx of knee surgery Z98.890 Left H/O right breast biopsy Onset Date: 11/2017 Z98.890 History of orthopedic surgery Z98.890 Lt Tibia Nilesh placed Surgical History: - - Aortic root aneurysm repair, left knee surgery. Psychiatric History: No pertinent psych hx Lives: Spouse/ Significant Other Smoking Status: Never smoker Alcohol: None Drugs: None - *Family History Maternal Family History: Family History (Last Reviewed 08/22/18 @ 17:00 by KARSON Ramirez) Mother Heart disease Breast cancer Cervical cancer Father Heart disease Brother Anxiety Paternal Family History: Family History (Last Reviewed 08/22/18 @ 17:00 by KARSON Ramirez) Mother Heart disease Breast cancer Cervical cancer Father Heart disease Brother Anxiety Review of Systems Constitutional: Denies: Chills, Fever, Weight Change Eyes: Reports: Vision Change - Left eye shadowing HEENT: Denies: Head Aches, Sinus Congestion, Sinus Drainage Cardiovascular: Denies: Chest Pain, Palpitations Respiratory: Denies: Cough, Shortness of breath at rest, Sputum production Gastrointestinal: Denies: Abdominal Pain, Nausea, Vomiting Genitourinary: Denies: Dysuria Musculoskeletal: Denies: Joint Pain, Joint Tenderness Skin: Denies: Rash, Wounds Neurological: Denies: Numbness, Tingling, Focal weakness Psychiatric: Denies: Anxiety, Depression, Homicidal Ideations, Suicidal Ideations Hematologic/ Lymphatic: Denies: Easy Bruising, Easy Bleeding VTE Information - Inpt Only VTE Present on Admission: No VTE Mechan Device Prophylaxis: None VTE Pharm Prophylaxis ordered?: Yes Patient Problems: Active and Suspected Problems (Last Updated 08/19/18 @ 17:30 by Conchis Martínez) Visual disturbance (Acute) - Physical Exam General: Alert, Oriented x3, Cooperative HEENT: Atraumatic, PERRLA, EOMI, Normocephalic Neck: Supple, No JVD, Negative Carotid Bruits Lungs: Clear to auscultation, Normal air movement Cardiovascular: Regular rate, Regular Rhythm, Normal S1, Normal S2, No murmurs Abdomen: Bowel Sounds Present, Soft, Non Tender, Non-Distended Extremities: No clubbing, No cyanosis, No edema, Capillary Refill Less than 3 Seconds Skin: No rashes, No breakdown Musculoskeletal: No Tenderness to Palpation of Joints or Extremities Neurological: Cranial nerves II-XII grossly intact, Neuro grossly intact Psych/Mental Status: Normal Affect, Appropriate Vital Signs Temp Pulse Resp BP Pulse Ox 98.4 F 67 16 116/68 97 08/22/18 13:44 08/22/18 13:44 08/22/18 13:44 08/22/18 13:44 08/22/18 13:44 Oxygen Delivery Method Room Air Weight: 149 lb 7.574 oz Body Mass Index (BMI) 20.8 Finger Stick Blood Glucose 90 Laboratory Tests Past 24 Hrs 08/22/18 08/22/18 08/22/18 10:25 10:25 10:25 WBC 6.9 RBC 3.92 L Hgb 11.9 L Hct 35.5 L MCV 90.6 MCH 30.4 MCHC 33.5 RDW Std Deviation 44.5 H RDW Coeff of Stephan 13.3 Plt Count 301 MPV 9.3 Immature Gran % (Auto) 1.200 H Neut % (Auto) 71.7 H Lymph % (Auto) 10.6 L [place] % (Auto) 10.3 H Eos % (Auto) 5.5 H Baso % (Auto) 0.7 Absolute Neuts (auto) 4.9 Absolute Lymphs (auto) 0.73 L Absolute Nucleated RBC 0.00 Nucleated RBC % 0 PT 14.2 INR 1.1 APTT 44.8 H Sodium Potassium Chloride Carbon Dioxide Anion Gap BUN Creatinine Estim Creat Clear Calc Est GFR (MDRD) Af Amer Est GFR (MDRD) Non-Af BUN/Creatinine Ratio Glucose Calcium Troponin I Triglycerides 97 Cholesterol 136 LDL Cholesterol 68 VLDL Cholesterol 19 HDL Cholesterol 49 08/22/18 10:25 WBC RBC Hgb Hct MCV MCH MCHC RDW Std Deviation RDW Coeff of Stephan Plt Count MPV Immature Gran % (Auto) Neut % (Auto) Lymph % (Auto) [place] % (Auto) Eos % (Auto) Baso % (Auto) Absolute Neuts (auto) Absolute Lymphs (auto) Absolute Nucleated RBC Nucleated RBC % PT INR APTT Sodium 137 Potassium 4.2 Chloride 104 Carbon Dioxide 28.0 Anion Gap 5 BUN 15 Creatinine 0.95 Estim Creat Clear Calc 76.67 Est GFR (MDRD) Af Amer 103 Est GFR (MDRD) Non-Af 85 BUN/Creatinine Ratio 15.9 Glucose 97 Calcium 9.0 Troponin I 0.081 H Triglycerides Cholesterol LDL Cholesterol VLDL Cholesterol HDL Cholesterol POC Glucose 08/22/18 11:28 POC Glucose 90 Assessment/Plan All Active Problems (Last Updated 08/19/18 @ 17:30 by Conchis Martínez) Visual disturbance (Acute) H/O aortic valve replacement (Resolved 08/14/18) Hx of aortic valve repair (Resolved 12/31/09) 1. Acute left cerebellar infarct-MRI of brain report shows tiny acute left cerebellar infarct. No other areas of acute infarct. Neurology consulted. Continue aspirin, statin. PT/OT/ST. Obtain echocardiogram. 2. Recent aortic valve replacement with bovine valve, [facility] facility 08/14/2018- history of aortic valve repair and ascending aorta replacement-denies complications. Continue outpatient follow-up with [facility] cardiology and Dr. Guo who patient follows with as well. Continue aspirin, metoprolol, Lasix regimen. 3. GERD-continue PPI. 4. Abnormal troponin-suspect secondary to #2. Asymptomatic. No new or acute EKG changes. DVT prophylaxis- lovenox sc This patient was seen by KARSON Ramirez under the supervision of Dr. Rielly.
[2018-08-22] MEDS: Atorvastatin Calcium 80 MG Tablet PO (20:20)
[2018-08-22] MEDS: Metoprolol Tartrate 25 MG Tablet 12.5 MG PO (20:20)
[2018-08-22] MEDS: oxyCODONE 5 MG Tablet PO (20:21)
[2018-08-23] VITALS (7 sets, daily range): BP systolic 99–125; BP diastolic 58–71; PULSE 69–79; RESP 14–16; TEMP 36.5–37.3; O2SAT 96–98; BMI 20.8
[2018-08-23] MEDS: oxyCODONE 5 MG Tablet PO ×2 (02:51→08:56)
[2018-08-23] MEDS: Aspirin 81 MG TAB.CHEW PO (08:56)
[2018-08-23] MEDS: Metoprolol Tartrate 25 MG Tablet 12.5 MG PO (08:57)
[2018-08-23] MEDS: Polyethylene Glycol 3350 17 GM PACKET PO (08:57)
[2018-08-23] MEDS: Furosemide 20 MG Tablet PO (08:57)
[2018-08-23] MEDS: Pantoprazole Sodium 20 MG Tablet PO (08:58)
--- NOTE | 2018-08-23 10:41 | CASEMGMT ---
TAYLOR PEPE assessment: Face to Face with patient for initial transition planning/care coordination assessment. TAYLOR PEPE introduced self and role at [facility], pt voices understanding and consents to assessment at this time. Pt is sitting up in bed in no distress at this time. Pt is A/Ox4 at this time and answers all questions appropriately at this time. Care providers, pharmacy, and demographics verified at this time. PCP: [facility] Specialists: [facility]ant cardio; [facility] cardiothoracic surgeon-pt states just had aortic valve replacement at [facility] and was released on 08/14/18. Preferred Pharmacy: [facility] Insurance: MMO Prescription Benefit: MMO Living Will/HPOA: Pt states does not currently have LW/HPOA but states that he was given info at [facility] and will be working on it. Pt declines any further info at this time. LNOK: Suzy Aponte, ; Gucci Aponte, brother Living Arrangements: Pt states lives with in 1 story home with several steps in and states no concerns at home at this time. Pt states is independent with ADL's. Transportation: Pt states normally drives self and states no transportation concerns at this time. DME/HHC: Pt states has no current DME or need for any at this time. Pt states no hx of HHC or SNF in the past. Pt states no concerns with going home at time of discharge. 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 Pt states does not smoke or drink ETOH. Pt states no further concerns/needs at this time. CM to follow for any further discharge planning/needs. Advised pt to ask for CM if any further questions/concerns/needs arise, voices understanding. Pt Goal: Home Plan[place] TAYLOR PEPE
--- NOTE | 2018-08-23 11:40 | DCINST_ITS ---
- Discharge Diagnoses Current Active Problems: Current Active and Chronic Problems (Last Updated 08/19/18 @ 17:30 by Conchis Martínez) Visual disturbance (Acute) You will use the following diet at home:: Cardiac Discharge Activity: Return to Normal Activity Call your doctor if you observe: Shortness of breath, Dizziness, Fainting spells, Chest pain Allergies/Adverse Reactions: Allergies No Known Allergies Allergy (Verified 08/22/18 09:37) Medications to take at Discharge Aspirin [Aspirin, Baby] 81 mg PO QHS 12/08/12 Furosemide [Lasix] 20 mg PO QODAY 08/22/18 Metoprolol Tartrate 12.5 mg PO BID 08/22/18 Multivitamin [Multiple Vitamins] 1 ea PO DAILY 08/22/18 Oxycodone [Oxyir] 5 mg PO Q6H PRN PRN 08/22/18 Pantoprazole Sodium [Protonix] 20 mg PO DAILY 08/22/18 Polyethylene Glycol 3350 [Miralax] 17 gm PO DAILY 08/22/18 Potassium Chloride 10 meq PO DAILY 08/22/18 Atorvastatin Calcium 40 mg PO QHS #30 tab 08/23/18 Losartan Potassium 25 mg PO DAILY #30 tab 08/23/18 The following prescriptions were given: Atorvastatin Calcium 40 mg PO QHS #30 tab Transmission Status: Received by [facility]/pharmacy #[id number] Losartan Potassium 25 mg PO DAILY #30 tab Transmission Status: Pending to [facility]/pharmacy #[id number] Primary Care Physician: Araceli Lee MD [Primary Care Provider] - Please follow up with your Primary Care Physician in: 1 Week Test Results: Test results from this visit will be discussed in further detail at your follow- up appointment, if applicable. Please Follow Up With: [facility] When: As scheduled, Sunday08/26/18 Please Follow Up With: Jerzy Guo MD When: As scheduled, 09/04/18 Please Follow Up With: Kayla Peres MD When: 4-6 Weeks Proposed Discharge Date: 08/23/18
--- NOTE | 2018-08-23 12:08 | CASEMGMT ---
Social Work PHQ-9 assessment completed due to patient being positive for a stroke. Patient with no depression noted at this time. Support provided and resources given as patient was explaining to have recently has a big surgery. This social science instructor encouraging patient to utilize resources if needed. Samara DUNHAM, HAO
--- NOTE | 2018-08-23 12:47 | PCM.DC.SUM ---
Discharge Date and Diagnosis Date of Admission: 08/22/18 Date of Discharge: 08/23/18 - Primary Discharge Diagnosis Active and Suspected Problems (Last Updated 08/19/18 @ 17:30 by Conchis Martínez) 1. Acute left cerebellar infarct 2. Recent aortic valve replacement with bovine valve, [facility] facility 08/14/2018 3. GERD 4. Abnormal troponin, secondary to #2. 5. Heart failure with reduced ejection fraction, no acute CHF - Secondary Discharge Diagnosis Chronic Problems (Last Updated 08/19/18 @ 17:30 by Conchis Martínez) Situational anxiety (Chronic) Secondary pulmonary arterial hypertension (Chronic) Non-rheumatic aortic stenosis (Chronic) Nonrheumatic aortic (valve) insufficiency (Chronic) Lump of right breast (Chronic) Bicuspid aortic valve (Chronic) 12/31/09, Bicuspid aortic valve repair & ascending aorta replacement using minimally invasive incision Premature ventricular contractions (Chronic) Thoracic aortic aneurysm (Chronic) Bicuspid aortic valve repair and ascending aorta replacement 12/31/09 Hospital Course and Treatment Imaging Results: Diagnostic Data Brain CT 08/22/18 10:13 IMPRESSION: Focal hypodensity seen in the insular cortex of the left temporal lobe. Focal ischemic change should be ruled out. Electronically Signed: John Gilmore, at 11:07 EDT , Service support , Chest X-Ray 08/22/18 10:15 IMPRESSION: Blunting of the left costophrenic angle with increased markings at the left lung base suggestive of atelectasis. Electronically Signed: John Gilmore, at 10:42 EDT , Service support , Head/Neck CTA 08/22/18 10:47 IMPRESSION: Minimal calcific plaque at the origin of the left internal carotid artery. Electronically Signed: John Gilmore, at 12:16 EDT , Service support , Brain MRI 08/22/18 13:22 IMPRESSION: 1. Tiny acute left cerebellar infarct. No hemorrhagic transformation. 2. No other areas of acute infarct or acute intracranial disease. 3. Small focus of hemosiderin deposition right cerebellum compatible with either old hemorrhagic infarct versus cerebral cavernous venous malformation (AKA cavernoma). 4. Mild chronic small vessel ischemic white matter changes. at 1543 Reported and signed by: Guanako Bolivar MD Electronically Signed: Guanako Bolivar MD at 15:42 EDT Tel , Service support , ADDENDUM: 08/22/18 1617 IMPRESSION: 1. Tiny acute left cerebellar infarct. No hemorrhagic transformation. 2. No other areas of acute infarct or acute intracranial disease. 3. Small focus of hemosiderin deposition right cerebellum compatible with either old hemorrhagic infarct versus cerebral cavernous venous malformation (AKA cavernoma). 4. Mild chronic small vessel ischemic white matter changes. at 1543 Reported and signed by: Guanako Bolivar MD N.B. : The above information has been verbally conveyed by Guanako Bolivar MD to Dr. Tommie MD, on 08/22/2018 16:10:56 (ET). Electronically Signed: Guanako Bolivar MD at 15:42 EDT Tel , Service support , Dr. Peres- Neurology Operations: None Procedures: None Summary of Care Provided: The patient is a 63 year old M admitted 08/22/2018 due to vision changes. 1. Acute left cerebellar infarct-MRI of brain report shows tiny acute left cerebellar infarct. No other areas of acute infarct. Neurology consulted. Patient will continue home aspirin regimen. Initiated on atorvastatin 40 mg daily. Patient had recent echo at [facility], 08/20/2017 which showed an EF of 38%, echo not repeated during admission. Follow-up with neurology in 4 to 6 weeks. Follow-up with primary care provider in 1 week. 2. Recent aortic valve replacement with bovine valve, [facility] facility 08/14/2018-history of aortic valve repair and ascending aorta replacement-denies complications. Continue outpatient follow-up with [facility] cardiology and Dr. Guo who patient follows with as well. Continue aspirin, metoprolol, Lasix regimen. 3. GERD-continue PPI. 4. Abnormal troponin-suspect secondary to #2. Asymptomatic. No new or acute EKG changes. Patient has follow-up on Sunday with [facility] cardiology and Dr. Guo 09/04/2018. 5. Heart failure with reduced ejection fraction-no acute CHF. Patient had recent echo 08/20/2018 which showed an EF of 38%. Additionally started on ARB, losartan 25 mg daily. General: Alert, Oriented x3, Cooperative HEENT: Atraumatic, PERRLA, EOMI, Normocephalic Neck: Supple, No JVD, Negative Carotid Bruits Lungs: Clear to auscultation, Normal air movement Cardiovascular: Regular rate, Regular Rhythm, Normal S1, Normal S2, No murmurs Abdomen: Bowel Sounds Present, Soft, Non Tender, Non-Distended Extremities: No clubbing, No cyanosis, No edema, Capillary Refill Less than 3 Seconds Skin: No rashes, No breakdown Musculoskeletal: No Tenderness to Palpation of Joints or Extremities Neurological: Cranial nerves II-XII grossly intact, Neuro grossly intact Psych/Mental Status: Normal Affect, Appropriate Patient seen and examined prior to discharge. Physical assessment as noted above. Patient is stable for discharge with follow up recommendations as noted above. This patient was seen by KARSON Ramirez under the supervision of Dr. Reilly. - Physical Exam Vital Signs Temp Pulse Resp BP Pulse Ox 98.1 F 79 14 115/68 96 08/23/18 08:15 08/23/18 08:57 08/23/18 08:15 08/23/18 08:15 08/23/18 08:15 Oxygen Delivery Method Room Air Weight: 149 lb 7.574 oz Body Mass Index (BMI) 20.8 Finger Stick Blood Glucose 90 Intake and Output for Last 24 Hours 08/21/18 08/22/18 08/23/18 23:59 23:59 23:59 Intake Total 700 / 700 240 / 240 Balance 700 / 700 240 / 240 Discharge Diet: Low fat/ Low Cholesterol Discharge Activity: Return to Normal Activity Call your doctor if you observe: Shortness of breath, Dizziness, Fainting spells, Chest pain Home Medications: Medications to take at Discharge Aspirin [Aspirin, Baby] 81 mg PO QHS 12/08/12 Furosemide [Lasix] 20 mg PO QODAY 08/22/18 Metoprolol Tartrate 12.5 mg PO BID 08/22/18 Multivitamin [Multiple Vitamins] 1 ea PO DAILY 08/22/18 Oxycodone [Oxyir] 5 mg PO Q6H PRN PRN 08/22/18 Pantoprazole Sodium [Protonix] 20 mg PO DAILY 08/22/18 Polyethylene Glycol 3350 [Miralax] 17 gm PO DAILY 08/22/18 Potassium Chloride 10 meq PO DAILY 08/22/18 Atorvastatin Calcium 40 mg PO QHS #30 tab 08/23/18 Losartan Potassium 25 mg PO DAILY #30 tab 08/23/18 Following Prescrptions Were Given to Patient: Atorvastatin Calcium 40 mg PO QHS #30 tab Transmission Status: Received by [facility]/pharmacy #[id number] Losartan Potassium 25 mg PO DAILY #30 tab Transmission Status: Received by [facility]/pharmacy #[id number] Primary Care Physician: Araceli Lee MD [Primary Care Provider] - Please follow up with your Primary Care Physician in: 1 Week Please Follow Up With: [facility] When: As scheduled, Sunday08/26/18 Please Follow Up With: Jerzy Guo MD When: As scheduled, 09/04/18 Please Follow Up With: Kayla Peres MD When: 4-6 Weeks Disposition: Home Minutes spent on discharge:: 35 Patient Condition:: Stable Medical Necessity - Tobacco Use Smoking Status: Never smoker Meaningful Use Info Meaningful Use Diagnoses (Choose all that apply): Ischemic CVA - CVA Therapy Assessed for PT,OT and/or ST?: Yes - Ischemic Stroke Antithrombotic order at d/c?: Yes Dx of Atrial fib/flutter?: No Statins at discharge?: Yes Primary Dx Acute Ischemic CVA?: Yes IV tPA ordered during stay?: No Reason IV t-PA not ordered: Medical Contraindication
--- NOTE | 2018-08-23 12:55 | PN.NEURO_ITS ---
Subjective: No issues overnight. Care discussed with the treating hospitalist. MRI brain reported to show tiny acute left cerebellar infarct, small focus of hemosiderin deposition right cerebellum compatible with cavernoma. CTA head/neck reported to show less than 50% stenosis of the left ICA. - Physical Exam General: Alert HEENT: Normocephalic Neck: Supple Lungs: Normal air movement Cardiovascular: Normal S1, Normal S2 Abdomen: Bowel Sounds Present Extremities: No cyanosis Neurological: - - consious, alert, AoAx3, CN 2-12 grossly intact, power 5/5 all 4 extremities, no sensory loss, no cerebellar signs, Reflexes + B/L B/S/T/K/A, gait deferred, NIHSS 0 at present, mRS 0 at baseline Psych/Mental Status: Normal Affect Vital Signs Temp Pulse Resp BP Pulse Ox 98.1 F 79 14 115/68 96 08/23/18 08:15 08/23/18 08:57 08/23/18 08:15 08/23/18 08:15 08/23/18 08:15 Oxygen Delivery Method Room Air Weight: 67.8 kg Body Mass Index (BMI) 20.8 Finger Stick Blood Glucose 90 Intake and Output for Last 24 Hours 08/21/18 08/22/18 08/23/18 23:59 23:59 23:59 Intake Total 700 / 700 240 / 240 Balance 700 / 700 240 / 240 Medical Necessity - Tobacco Use Smoking Status: Never smoker Assessment/Plan All Active Problems (Last Reviewed 08/22/18 @ 16:59 by Savanna Sawyer NP-Mark) Visual disturbance (Acute) H/O aortic valve replacement (Resolved 08/14/18) Hx of aortic valve repair (Resolved 12/31/09) The patient is a 63 year old M with recent aortic valve replacement on 08/14/18 at [facility] admitted with visual disturbances. Per patient on 08/20/18 he was discharged home from [facility], after coming home he felt he saw a shadow out of the left eye at the upper quadrant and had vision loss for about 3-4 hrs in the left eye superior quadrant, following which symptoms completely improved, was recommended to see ophthalmology by [facility], whom he saw today 08/22/18 and was told he has plaque in retinal vessel and were concerned for possible stroke and patient was sent to ED. At present patient denies any visual disturbances, VIEIRA, dizziness, focal motor weakness, sensory loss or speech disturbances. NIHSS on admission was 0. Per patient his postoperative course was complicated by bleeding requiring repeat procedure and also had thrombocytopenia postprocedure. Impression Acute left cerebellar small infarct Plan -On ASA. Will avoid dual antiplatelets due to recent aortic valve replacement procedure which was complicated by excessive bleeding and thrombocytopenia. NIHSS score 0 at present, ABCD 2 score 3. -Start Lipitor 40 mg PO q hs. 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 -CTA head/neck- Left ICA < 50% stenosis -TTE-ejection fraction 38%, done at [facility], LDL-68, [id number] -Frequent neurochecks -Goal BP < 130/80 mmHg, goal Hba1c < 7 -Neurosurgery consult for cavernoma as outpatient -Stroke risk factors discussed and stroke education provided -PT/OT -GI/DVT prophylaxis -Fall precautions -Further medical management per hospitalist team -Follow-up with neurology as outpatient in 3 to 4 weeks -Please call with questions if any -Thank you for allowing us to participate in patient's care and management.
[2018-08-23 14:01] LABS: Hemoglobin A1c 5.4 % (4.2-6.3)
== END 2018-08-23 13:27 | disposition home or self-care (01) | DRG 65 ==
LOC: ED 10:02 → PCU 13:18
PROVIDERS: Psychiatry & Neurology Neurology; Admitting Provider Internal Medicine; Emergency Provider Emergency Medicine; Family Provider Internal Medicine; PCP Internal Medicine; Referring Provider Internal Medicine; Visit Provider Internal Medicine
DX: I63.9 Cerebral infarction, unspecified (principal); I50.20 Unspecified systolic (congestive) heart failure; K21.9 Gastro-esophageal reflux disease without esophagitis; F41.9 Anxiety disorder, unspecified; Z95.3 Presence of xenogenic heart valve; Z79.82 Long term (current) use of aspirin
CPT/HCPCS: 70450; 70496; 70498; 70551; 71045; 80048; 80061; 82962; 83036; 84484; 85025; 85610; 85730; 93005; 94762; 99284; Q9967; A4216

== ENCOUNTER → 2018-09-12 09:08 | Outpatient (CLI) | payer OTHER, SELFPAY ==
[2018-09-04 09:19] VITALS: BMI 20.7
[2018-09-06 13:20] VITALS: BMI 20.7
--- NOTE | 2018-09-12 09:19 | CR.ITP_ITS ---
General Information - General Information Admitting Diagnosis: AVR - Education/Goals Barriers to Learning: None Individual Counseling: Initial Assessment: Stress Cardiac Rehabilitation Goals: 1. Maintain the individual as the primary focus of care. 2. To improve the patient's quality of life. 3. Identification of cardiac risk factors and provide cardiac risk factor management. 4. Enhance the psychosocial status of the patient. 5. Reconditioning enough to allow the patient to resume customary activities. 6. Control symptoms of cardiac disease Scale for measuring improvement of personal goals: Enter appropriate number in Comments. 2 = Unchanged. 3 = Slightly Better. 4 = Moderate Improvement. 5 = Met my Goal Personal Goals: Initial Assessment: Improve energy level, Get back to work, or to resume activities faster, Improve knowledge of cardiac disease, Improve muscle strength and endurance, Improve diet and eating habits (eat healthier), Control risk factors (learn risk factor modification) Exercise - Initial Assessment - Visit Date of Eval: 09/12/18 - Stages of Change Stages of Change:: Action - Physician Prescribed Exercise Modalities: Treadmill, Biodyne, Rower, Airdyne, NuStep, SciFit Frequency (days/week): 3x/week for 12 weeks [36 sessions] Duration (Minutes):: 35-40 Intensity: 60-80% age predicted maximum heart rate reserve METs - Progression: 0.5-1.0 MET, RPE 11-14 WEEK: .5-1.0 met - Hypertension Do any of the following apply?: Yes - Intervention Home Exercise/Activity Goal:: Moderate Exercise 30 min/day x 5 days/wk - Education Goals:: Warm-up, RPE BEN Scale, S/S, Safe Exercise, Self-Monitoring - Exercise Program Goals Exercise Program Goals: Aerobic Activity >30 min Nutrition - Initial Assessment - Program Goals Nutrition Program Goals: LDL <70. Total Cholesterol <200. HDL >45. Triglycerides <150. HgbA1C <7%. BMI <25 - Visit Date of Assessment:: 09/12/18 - Stages of Change Stages of Change:: Action - Lipids Total Cholesterol (mg/dL) Goal = less than 200 mg/dL: 136 HDL Cholesterol (mg/dL) Goal = less than 45 mg/dL: 49 LDL Cholesterol (mg/dL) Goal = less than 70 mg/dL: 68 Triglycerides (mg/dL) Goal = less than 150 mg/dL: 97 - Diabetes Diabetes:: No - Weight Management Height: 5 ft 11 in Weight:: 151 lb Body Fat %:: 20.7 - Intervention Referral to dietitian:: No Referral to Diabetic Clinic:: No Will attend diet classes:: Yes - Education Gave educational materials for:: Relate diabetes to coronary artery disease, Healthy eating Tobacco - Initial Assessment - Program Goals Tobacco Program Goals: Complete smoking cessation. Attend education classes. Improve Knowledge Test score - Stage of Change Stages of Change:: Maintenance - Learning Barriers Learning Barriers: Ready to Learn Total Score:: 19 - Family Support Do you have family support?: Yes - Tobacco Use Tobacco Use: Non-smoker How long ago did you quit using tobacco products?: Greater than or equal to 6 months ago Do you use smokeless tobacco?: No - Intervention Smoking Cessation Referral:: No Individual Education/Counseling:: No Education Schedule Given:: Yes - Education Attended class for:: Treating Heart Disease, How The Heart Works, What it means to have Heart Disease, How Coronary Artery Disease is Diagnosed, Heart Procedures, What Heart Medications Do, Risk Factors & Modifications, Living an Active Life, Nutrition, Emotions & Heart Disease, Stress Management & Relaxation, Sleep Disorders & Heart Disease Psychosocial - Initial Assess - Target Goals Target Goals: Assess presence or absence of depression. Using a valid screening tool, maximizes coping skills. Positive support system - Stages of Change Stages of Change:: Action - Psychosocial Test Tool Used:: HANDS Depression Questionnaire Self-reported stress:: yes Tests Completed: SF - 36 survey completed, Mood Scale Test Total Mood Screening Score:: 9 Self-Efficacy Score:: 8 - Intervention PS - Interventions: Yes Attend Stress Management Classes, Yes Uses Stress Management Skills, No Referral to Mental Health, No Referral to [facility] Case Management, No Referral to Physician - Education Gave educational materials for:: Coping techniques, Signs & symptoms of depression, Stress management, Relaxation techniques - Patient/Program Goal Preventative Medication(s):: Aspirin, ALTAF inhibitor, Clopidogrel, Beta carlos, Statin/lipid - Assistive Devices Assistive Devices:: None Fall Risk Assessed:: Yes Patient Health Questionnaire Initial Assessment 1. Little interest or pleasure in doing things: Several days 2. Feeling down, depressed, or hopeless: Several days 3. Trouble falling or staying asleep, or sleeping too much: More than half the days 4. Feeling tired or having little energy: Several days 5. Poor appetite or overeating: Several days 6. Feeling bad about yourself -- or that you are a failure or have let yourself or your family down: Several days 7. Trouble concentrating on things, such as reading the newspaper or watching television: Several days 8. Moving or speaking so slowly that other people could have noticed. Or the opposite - being so fidgety or restless that you have been moving around a lot more than usual: Several days 9. Thoughts that you would be better off , or of hurting yourself in some way: Not at all How difficult have these problems made it for you to do your work, take care of things at home, or get along with other people?: Somewhat difficult Total Score: 9 MARI-Q SV Test - Statements CAD is a disease of the arteries in the heart: False Examples of risk factors for heart disease: True Angina is chest pain or discomfort: True The benefits of resistance training include: True Eating more meat and dairy products: False Anti-platelet medications such as aspirin are important: True The only effective way to manage stress: False An exercise warm-up slowly increases heart rate: True Prepared, processed foods usually have high sodium: True Depression is common after a heart attack: True The statin medications lower cholesterol: True To control blood pressure, lower the amount of sodium: True If someone gets chest discomfort during walking: False Transfats are partially hydrogenated vegetable oils: True Sleep apnea that is not treated increases the risk: False To control cholesterol, one should become a vegetarian: False Someone knows if he/she is exercising at the right level: True Diabetes cannot be prevented with exercise & health eating: True Stress is a large risk for heart attack: True A diet that can help lower blood pressure is rich in: True - Total Score Total Correct Responses: 19 Self-Efficacy Initial Assessment We would like to know how confident you are in doing certain activities. Please select your confidence level for:: Select your confidence level for the following using the scale 1-10 where 1 is not at all confident and 10 is totally confident. Your score is the average of all 6 responses. Fatigue: How confident are you that you can keep the fatigue caused by your disease from interfering with the things you want to do? Select Number: 5 Physical Discomfort or Pain: How confident are you that you can keep the physical discomfort or pain of your disease from interfering with the things you want to do? Select Number: 3 Emotional Distress: How confident are you that you can keep the emotional distress caused by your disease from interfering with the things you want to do? Select Number: 8 Other Symptoms or Health Problems: How confident are you that you can keep other symptoms or health problems from interfering with the things you want to do? Select Number: 9 Different Tasks and Activities: How confident are you that you can do the different tasks and activities needed to manage your health condition so as to reduce your need to see a doctor? Select Number: 9 Medication: How confident are you that you can do things other than just taking medication to reduce how much your illness affects your everyday life? Select Number: 10 Total Score:: 7 Nutrition Survey - Nutrition Survey Instructions Scoring Instructions: Scoring is as follows: Yes = 1 points. No = 0 point. Patient score that is >/=12 is considered to be at potential nutritional risk and could benefit from a referral to a registered dietitian. - Nutrition Survey Initial Have you lost >10 lbs over the past 2 months without trying?: No Are you following a special diet at home for diabetes, low fat, or low salt?: Yes Are you interested in meeting with a dietitian for help understanding your diet?: No Do you eat less than 3 meals a day?: Yes Do you eat fatty meats (finnegan, sausage, ribs, etc), fried foods, desserts, large amounts of salad dressings, margarine, butter, or cheese most days?: No Do you have food allergies? [Enter types in comment field]: No Do you eat in restaurants more than 3 times a week?: Yes Do you season food with salt, seasoning salt, or garlic salt?: No Do you used canned, boxed, frozen meals, or soups, seasoning packets?: No Total Score:: 3
--- NOTE | 2018-09-12 09:20 | PCM.CR.HP2 ---
CR - History & Physical - General Arrival date:: 09/12/18 Arrival time:: 09:20 Date of Referral:: 09/12/18 Date of CR Evaluation:: 09/12/18 Referring Physician: Dr. Jay Guo Primary Diagnosis: AVR - History of Present Cardiac Event Onset Date: Enter Onset Date of cardiac illnesses in Comment field below Current stable Angina Pectoris:: No Acute Myocardial Infarction within 12 months:: No Coronary Artery Bypass Graft:: No Heart valve replacement or repair:: Yes - AVR 08/14/18 PTCA or coronary stenting:: No Heart or Heart-Lung Transplant:: No Heart Failure EF <35%:: No Type of Symptoms:: SOB Interventions with present event:: valve replacement Were there any complications?: bleeding post op - Medications Home Medications: Ambulatory Orders Medication Instructions Recorded Metoprolol Tartrate 12.5 mg PO BID 08/22/18 Multivitamin [Multiple Vitamins] 1 ea PO DAILY 08/22/18 Oxycodone [Oxyir] 5 mg PO Q6H PRN PRN 08/22/18 Pantoprazole Sodium [Protonix] 20 mg PO DAILY 08/22/18 Polyethylene Glycol 3350 [Miralax] 17 gm PO DAILY 08/22/18 Atorvastatin Calcium 40 mg PO QHS #30 tab 08/23/18 Losartan Potassium 25 mg PO DAILY #30 tab 08/23/18 aspirin 81 mg chewable tablet 162 mg PO QHS tab 09/04/18 tramadol 50 mg tablet 50 mg PO Q12H PRN #14 tab 09/06/18 - Allergies Allergies/Adverse Reactions: Allergies No Known Allergies Allergy (Verified 09/06/18 13:14) - Sleep Disorder Evaluation Hx of Sleep Apnea: No Do you snore loudly (louder than talking or can be heard through closed doors)?: Yes Do you often feel tired/ fatigued/ sleepy during daytime?: Yes Has anyone observed you stop breathing during sleep?: No History of Hypertension (for STOP score): No STOP Results: Positive Advanced Directives - Advanced Directives Power of Fire Extinguisher Installer: No Living Will: No Advance Directives Information Provided: Yes Advance Directives on File: No DNR Order?:: No Past Medical History - Past Medical Illness Medical History: Past Medical History (Last Reviewed 09/06/18 @ 13:15 by Vivian Wilde) CVA (cerebral vascular accident) (Acute) Onset Date: 08/22/18 I63.9 Tiny acute left cerebellar infarct Acute systolic CHF (congestive heart failure) (Acute) I50.21 Nonischemic cardiomyopathy (Chronic) I42.8 Nonrheumatic aortic (valve) stenosis with insufficiency (Chronic) I35.2 Secondary pulmonary arterial hypertension (Chronic) I27.21 Premature ventricular contractions (Chronic) I49.3 Thoracic aortic aneurysm (Chronic) I71.2 Bicuspid aortic valve repair and ascending aorta replacement 12/31/09 Bicuspid aortic valve Q23.1 12/31/09, Bicuspid aortic valve repair & ascending aorta replacement using minimally invasive incision Dilated aortic root I77.810 Dizziness and giddiness R42 Lump of right breast N63.10 Osteoarthritis M19.90 Situational anxiety F41.8 Visual disturbance (Resolved) H53.9 Heart disease (Inactive) I51.9 - Past Surgical History Surgical History: Past Surgical History (Last Reviewed 09/04/18 @ 11:18 by Jerzy Guo MD) H/O aortic valve replacement (Resolved) Onset Date: 08/14/18 Z95.2 REDO AVR w/ #25 CE Valve and debridement of anterior mitral leaflet and repair ascending aorta graft 08/14/18; Bicuspid aortic valve repair and ascending aorta replacement 12/31/09 H/O right breast biopsy Onset Date: 11/2017 Z98.890 History of appendectomy Z90.49 History of left heart catheterization Onset Date: 08/12/18 Z98.890 History of orthopedic surgery Z98.890 Lt Tibia Nilesh placed Hx of knee surgery Z98.890 Left Surgical History: - - aortic aneurysm, knee surgery - Family History Summary Family History: Family History (Last Reviewed 09/04/18 @ 11:18 by Jerzy Guo MD) Mother Heart disease Breast cancer Cervical cancer Father , narrowing of aorta Heart disease Brother Anxiety Social History - Smoking History Smoking Status: Former smoker Hx Tobacco Use: No Hx Smoking Exposure: No - Alcohol Use Alcohol Usage: Yes - occas beer in past - Substance Abuse Hx Substance Use: No - Occupation 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 Left click = Reports (Hoopa) Review of Present Symptoms: Reports: Operative Discomfort - chest incisional soreness, Wound Healing - some dry brown scabs noted, Fatigue - sight, Appetite - Normal, Appetite - Special Diet - cardiac, Sleep - Normal, Sexual Changes. Denies: Shortness of Breath at Rest, Shortness of Breath with Exertion, PVD, Angina, Dizziness/Lightheadedness, Heart Arrhythmia/Irregularities - Pain Is Patient Pain Free?: No Pain Location: chest Pain Level: 7/10 Previous experience dealing with pain?: pain meds, repositioning. Risk Factor Assessment - Vital Signs Pulse Ox: 98 - Pulse Pulse Rate: 63 Pulse Rhythm: Regular - Hypertension Blood Pressure Sitting - Right Arm: 120/80 Blood Pressure Sitting - Left Arm: 118/70 - Stress Stress: Recent - Blood Cholesterol/Lipids Total Cholesterol (mg/dL) Goal = less than 200 mg/dL: 136 HDL Cholesterol (mg/dL) Goal = less than 40 mg/dL: 49 LDL Cholesterol (mg/dL) Goal = less than 70 mg/dL: 68 Triglycerides (mg/dL) Goal = less than 150 mg/dL: 97 - Diabetes Nutrition Referral for Diabetes: No - Obesity Height: 6 ft Weight:: 151 lb Weight in Pounds: 151.0 lbs Body Mass Index (BMI): 20.5 Nutritional Referral for Obesity: No - Physical Inactivity Physical Inactivity: Reg Exercise 30 min/day - Risk Stratification Risk Guidelines: Lowest Risk: Risk Factor for Smoking, Risk Factor for Dyslipidemia, Risk Factor for Diabetes, Risk Factor for Obesity, Risk Factor for Hypertension, Risk Factor for Sedentary Lifestyle, Risk Factor for Depression - For Smoking Smoking Risk Guidelines: Smoking Low Risk: None or quit greater than 6 months ago. Smoking Moderate Risk: Smoker or quit 6 months or less ago. Smoking High Risk: Smoker - For Dyslipidemia Dyslipidemia Risk Guidelines: Low Risk: Moderate Risk: High Risk: 15-25% fat 25.1-29% fat >/= 30% fat. <7% sat fat 7-9% sat fat >9% sat fat. <150 mg chol 150-299 mg chol >/= 300 mg chol. LDL <100 LDL 100-129 LDL >/= 130. Chol/HDL ratio <5.0 Chol/HDL ratio 5.0-6.0 Chol/HDL ratio >6.0. Triglycerides <100 Triglycerides 100-149 Triglycerides >/= 150 - For Diabetes Mellitus Diabetes Risk Guidelines: Diabetes Low Risk: HgA1c <6.5% and/or FBG <120. Diabetes Moderate Risk: HgA1c 6.6-7.9% and/or FBG 120-180. Diabetes High Risk: HgA1c >/= 8% and/or FBG >180 - For Obesity/Overweight Obesity/Overweight Risk Guidelines: Obesity Low Risk: BMI <25.0. Obesity Moderate Risk: BMI 25-29.9. Obesity High Risk: BMI >/= 30.0 - For Hypertension Hypertension Risk Guidelines: Hypertension Low Risk: Systolic <120 and Diastolic <80. Hypertension Moderate Risk: Systolic 120-139 and Diastolic 80-89. Hypertension High Risk: Systolic >/= 140 and Diastolic >/= 90 - For Sedentary Lifestyle Sedentary Lifestyle Risk Guidelines: Sedentary Lifestyle Low Risk: >/= 1,500 kcal/week. Sedentary Lifestyle Moderate Risk: 700-1,499 kcal/week. Sedentary Lifestyle High Risk: < 700 kcal/week - For Depression Depression Risk Guidelines: Depression Low Risk: Not clinically depressed. Depression Moderate Risk: Mildly depressed. Depression High Risk: Clinically depressed - Family History Family History: Family History (Last Reviewed 09/04/18 @ 11:18 by Jerzy Guo MD) Mother Heart disease Breast cancer Cervical cancer Father Heart disease Brother Anxiety Motivation - Motivation to Participate On a scale of 1 to 10, how prepared are you to commit to attending program?: 10
[2018-09-12 10:05] VITALS: BP 118/70; BP 120/80; PULSE 63; O2SAT 98; BMI 20.5
== END ==
PROVIDERS: Family Provider Internal Medicine; PCP Internal Medicine; Referring Provider Internal Medicine Cardiovascular Disease; Visit Provider Internal Medicine Cardiovascular Disease
DX: Z95.2 Presence of prosthetic heart valve (principal); I50.21 Acute systolic (congestive) heart failure; I42.8 Other cardiomyopathies; I35.2 Nonrheumatic aortic (valve) stenosis with insufficiency; I27.21 Secondary pulmonary arterial hypertension; I49.3 Ventricular premature depolarization; I71.2 Thoracic aortic aneurysm, without rupture; Z86.73 Personal history of transient ischemic attack (TIA), and cerebral infarction without residual deficits

== ENCOUNTER 2018-10-04 13:00 | Outpatient (RCR) | payer OTHER, SELFPAY ==
[2018-09-12 10:05] VITALS: BMI 20.5
== END 2018-10-05 23:59 ==
LOC: CR 13:00
PROVIDERS: Family Provider Internal Medicine; PCP Internal Medicine; Referring Provider Internal Medicine Cardiovascular Disease; Visit Provider Internal Medicine Cardiovascular Disease
DX: I50.21 Acute systolic (congestive) heart failure (principal); Z86.73 Personal history of transient ischemic attack (TIA), and cerebral infarction without residual deficits; I42.8 Other cardiomyopathies; I35.2 Nonrheumatic aortic (valve) stenosis with insufficiency; I27.21 Secondary pulmonary arterial hypertension; Z95.2 Presence of prosthetic heart valve; I49.3 Ventricular premature depolarization; I71.2 Thoracic aortic aneurysm, without rupture
CPT/HCPCS: 93798

== ENCOUNTER 2018-10-21 13:00 | Outpatient (RCR) | payer OTHER, SELFPAY ==
[2018-09-12 10:05] VITALS: BMI 20.5
--- NOTE | 2018-10-11 09:00 | CR.ITP_ITS ---
Exercise - 30-day Assessment - Visit Date of Eval: 10/11/18 Session #:: 11 - NOT MISSED ANY SESSIONS - Stages of Change Stages of Change:: Action - Physician Prescribed Exercise Modalities: Treadmill, Rower, Airdyne, NuStep Frequency (days/week): 3 Duration (Minutes):: 30-45 Intensity: 60-80% age predicted maximum heart rate reserve METs - Progression: 0.5-1.0 MET, RPE 11-14 WEEK: 5.5 INCREASE FROM 2.5 Target Heart Rate:: 101-132 W/MAX HR 114 - Hypertension Resting Blood Pressure:: 100/64 Peak Exercise Blood Pressure:: 132/76 Medication Changes:: No - Intervention Home Exercise/Activity Goal:: Moderate Exercise 30 min/day x 5 days/wk - Education Goals:: Warm-up, RPE BEN Scale, S/S, Safe Exercise, Self-Monitoring - Exercise Program Goals Exercise Program Goals: Aerobic Activity >30 min Nutrition - 30-Day Assessment - Program Goals Nutrition Program Goals: LDL <70. Total Cholesterol <200. HDL >45. Triglycerides <150. HgbA1C <7%. BMI <25 - Visit Date of Eval: 10/11/18 - Stages of Change Stages of Change:: Action - Lipids Has the patient seen the dietitian?: No - Diabetes Diabetes:: No - Weight Management Weight:: 153 lb - GAINED 2 POUNDS SINCE STARTING CR - Intervention Referral to dietitian:: No Referral to Diabetic Clinic:: No Will attend diet classes:: Yes - Education Attended class for:: Healthy eating Tobacco - Initial Assessment - Program Goals Tobacco Program Goals: Complete smoking cessation. Attend education classes. Improve Knowledge Test score - Learning Barriers Learning Barriers: Ready to Learn Tobacco - 30-Day Assessment - Program Goals Tobacco Program Goals: Complete smoking cessation. Attend education classes. Improve Knowledge Test score - Stage of Change Stages of Change:: Action - Learning Barriers Learning Barriers: Participates in education - Family Support Do you have family support?: Yes - Tobacco Use Tobacco Use: Non-smoker Do you use smokeless tobacco?: No - Intervention Smoking Cessation Referral:: No Education Schedule Given:: Yes - Education Attended class for:: Treating Heart Disease, How The Heart Works, What it means to have Heart Disease, How Coronary Artery Disease is Diagnosed, Emotions & Heart Disease, Stress Management & Relaxation, Sleep Disorders & Heart Disease Psychosocial - Initial Assess - Target Goals Target Goals: Assess presence or absence of depression. Using a valid screening tool, maximizes coping skills. Positive support system - Psychosocial Test Tool Used:: HANDS Depression Questionnaire - Assistive Devices Fall Risk Assessed:: Yes Psychosocial - 30-Day Assess - Target Goals Target Goals: Assess presence or absence of depression. Using a valid screening tool, maximizes coping skills. Positive support system - Stages of Change Stages of Change:: Action - Psychosocial Test Tool Used:: HANDS Depression Questionnaire - Intervention PS - Interventions: Yes Attend Stress Management Classes, Yes Uses Stress Ma nagement Skills, No Referral to Mental Health, No Referral to [facility] Case Management, No Referral to Physician - Education Attended classes for:: Coping techniques, Signs & symptoms of depression, Stress management, Relaxation techniques - Patient/Program Goal Preventative Medication(s):: Aspirin, ALTAF inhibitor, Clopidogrel, Beta carlos, Statin/lipid - Assistive Devices Assistive Devices:: None Fall Risk Assessed:: Yes Patient Health Questionnaire 30-Day Re-eval Assessment 1. Little interest or pleasure in doing things: Several days 2. Feeling down, depressed, or hopeless: Several days 3. Trouble falling or staying asleep, or sleeping too much: More than half the days 4. Feeling tired or having little energy: Several days 5. Poor appetite or overeating: Several days 6. Feeling bad about yourself -- or that you are a failure or have let yourself or your family down: Several days 7. Trouble concentrating on things, such as reading the newspaper or watching television: Not at all 8. Moving or speaking so slowly that other people could have noticed. Or the opposite - being so fidgety or restless that you have been moving around a lot more than usual: Not at all 9. Thoughts that you would be better off , or of hurting yourself in some way: Not at all Total Score: 7 Self-Efficacy 30-Day Re-eval Assessment We would like to know how confident you are in doing certain activities. Please select your confidence level for:: Select your confidence level for the following using the scale 1-10 where 1 is not at all confident and 10 is totally confident. Your score is the average of all 6 responses. Fatigue: How confident are you that you can keep the fatigue caused by your dise ase from interfering with the things you want to do? Select Number: 6 Physical Discomfort or Pain: How confident are you that you can keep the physica l discomfort or pain of your disease from interfering with the things you want to do? Select Number: 5 Emotional Distress: How confident are you that you can keep the emotional distress caused by your disease from interfering with the things you want to do? Select Number: 8 Other Symptoms or Health Problems: How confident are you that you can keep other symptoms or health problems from interfering with the things you want to do? Select Number: 9 Different Tasks and Activities: How confident are you that you can do the different tasks and activities needed to manage your health condition so as to reduce your need to see a doctor? Select Number: 10 Medication: How confident are you that you can do things other than just taking medication to reduce how much your illness affects your everyday life? Select Number: 10 Total Score:: 8
[2018-10-11 09:06] VITALS: BP 100/64; BP 132/76
== END 2018-10-30 13:00 | disposition home or self-care (01) ==
LOC: CR 13:00
PROVIDERS: Family Provider Internal Medicine; PCP Internal Medicine; Referring Provider Internal Medicine Cardiovascular Disease; Visit Provider Internal Medicine Cardiovascular Disease
DX: I50.21 Acute systolic (congestive) heart failure (principal); I42.8 Other cardiomyopathies; I35.2 Nonrheumatic aortic (valve) stenosis with insufficiency; I27.21 Secondary pulmonary arterial hypertension; I49.3 Ventricular premature depolarization; I71.2 Thoracic aortic aneurysm, without rupture; Z95.2 Presence of prosthetic heart valve; Z86.73 Personal history of transient ischemic attack (TIA), and cerebral infarction without residual deficits
CPT/HCPCS: 93798

== ENCOUNTER 2018-12-13 13:49 | Outpatient (RCR) | payer OTHER, SELFPAY ==
[2018-12-13 09:10] VITALS: BMI 20.5
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
== END 2018-12-13 17:00 | disposition home or self-care (01) ==
LOC: PT 13:49
PROVIDERS: Family Provider Internal Medicine; PCP Internal Medicine; Referring Provider Orthopaedic Surgery; Visit Provider Orthopaedic Surgery
DX: M17.11 Unilateral primary osteoarthritis, right knee (principal)
CPT/HCPCS: 97161

== ENCOUNTER → 2019-04-18 10:11 | Outpatient (CLI) | payer OTHER, SELFPAY ==
[2019-03-25 15:35] VITALS: BMI 22.6
--- NOTE | 2019-04-18 10:11 | ECHOD_ITS ---
Reason For Study: CARDIOMYOPATHY Procedure This was a 2D Doppler, Color Flow transthoracic echocardiogram. Exam performed in department. Left Ventricle Normal LV size. The estimated ejection fraction is 50 %. Stage 2 diastolic dysfunction. No regional wall motion abnormalities noted. Right Ventricle Normal RV size. Normal systolic function. Atria Normal left atrium. Normal right atrium. Mitral Valve Normal mitral valve. Tricuspid Valve Normal tricuspid valve. Mild (1+) tricuspid valve insufficiency. Pulmonary artery systolic pressure is 28 mmHg. Aortic Valve Bicuspid aortic valve. Repaired bicuspid AV with thickneing. Mild aortic stenosis. Pulmonic Valve Normal pulmonic valve. Mild (1+) pulmonic valve insufficiency. Great Vessels Calcified aortic root. The pulmonary artery is normal size. Normal inferior vena cava. Pericardium/Pleural No pericardial effusion. MMode/2D Measurements & Calculations LVIDd: 4.7 cm IVSd: 1.2 cm Ao root diam: 2.8 cm LVIDs: 3.4 cm LVPWd: 1.2 cm RVDd: 3.5 cm FS: 28.2 % LAV(MOD-bp): 67.9 ml LA A4 area: 21.5 cm2 LA dimension(2D): 4.1 cm LAV(MOD-bp) Indexed: 35.2 ml/m2 LAV(MOD-sp2): 66.0 ml LAV(MOD-sp4): 66.2 ml RA A4 area: 19.2 cm2 Time Measurements MV dec time: 0.27 sec Doppler Measurements & Calculations MV E max dane: 54.8 cm/sec Lat Peak E' Dane: 8.8 cm/sec Med Peak E' Dane: 6.8 cm/sec MV A max dane: 43.2 cm/sec E/E' lat: 6.2 E/E' med: 8.1 MV E/A: 1.3 Ao V2 max: 224.7 cm/sec LV V1 max: 64.5 cm/sec PA V2 max: 106.2 cm/sec Ao max P.2 mmHg LV V1 max P.7 mmHg Ao V2 mean: 169.3 cm/sec LV V1 mean P.98 mmHg Ao mean P.4 mmHg LV V1 mean: 47.6 cm/sec Ao V2 VTI: 49.8 cm LV V1 VTI: 14.9 cm TR max dane: 243.7 cm/sec TR max P.8 mmHg Interpretation Summary Normal LV size. The estimated ejection fraction is 50 %. Mild (1+) tricuspid valve insufficiency. Stage 2 diastolic dysfunction. Pulmonary artery systolic pressure is 28 mmHg. Repaired bicuspid AV with thickening Mild aortic stenosis. Ordering Physician: Inge Neumann Referring Physician: Araceli Lee Performed By: Celestina Trujillo, KRISTEL, RVT
== END ==
PROVIDERS: PCP Internal Medicine; Referring Provider Physician Assistant Medical; Visit Provider Physician Assistant Medical
DX: I42.8 Other cardiomyopathies (principal); Z95.2 Presence of prosthetic heart valve
CPT/HCPCS: 93306

== ENCOUNTER 2019-08-05 14:39 | Emergency (ER) | payer OTHER, SELFPAY ==
[2019-03-25 15:35] VITALS: BMI 22.6
[2019-08-05 14:41] VITALS: BP 92/66; PULSE 60; RESP 16; TEMP 36.9; O2SAT 97; BMI 23.0
[2019-08-05] MEDS: Diphth,Pertuss(Acell),Tet Vac 0.5 ML Vial IM (15:03)
--- NOTE | 2019-08-05 15:06 | RAD_ITS ---
STUDY: X-RAY - LEFT HAND, ATTENTION THIRD FINGER REASON FOR EXAM: Male, 64 years old. LEFT MIDDLE FINGER, SMASHED BETWEEN ROCK TECHNIQUE: 3 view(s) of the finger were obtained. COMPARISON: None. FINDINGS: Normal metacarpal head. Normal metacarpophalangeal joint. Normal proximal phalanx. Normal middle phalanx. Nondisplaced fracture of the tuft distal phalanx of the third digit. Normal proximal interphalangeal joint. Normal distal interphalangeal joint. Soft tissue swelling. RAD/Finger(s) Min 2 Views IMPRESSION: Nondisplaced fracture of the tuft of the distal phalanx with overlying soft tissue swelling. Electronically Signed: John Gilmore, at 15:25 EDT , Service support ,
--- NOTE | 2019-08-05 15:06 | ED.VISSUMM ---
- ER Visit Summary Date of Service: 08/05/19 Chief Complaint: Left middle finger injury History of Present Illness: The patient is a 64 M who presents with injury to his left middle finger that occurred today. Patient states he was moving a rock when he got it smashed between the rock he was moving in another rock. Patient states the skin opened up and he has had some bleeding. Patient states the pain is dull. Patient denies any paresthesias or weakness. Patient is unsure of his last tetanus. Patient denies any other injuries. Physical Examination: Vital signs are stable. Patient is afebrile. Patient is in no acute distress. Musculoskeletal exam reveals tenderness over the distal phalanx of the left middle finger. There is a 4 cm curvilinear laceration over the pad of the left middle finger. There is no active bleeding noted. There are no foreign bodies noted. There is no bony crepitance or step-off. Capillary refill is less than 2 seconds in all digits. Sensations intact to light touch in all digits. There is good range of motion of the MP and PIP joints of the left middle finger. Range of motion of the DIP joint was limited secondary to pain. Test Results: X-rays of the left middle finger were obtained. There is a nondisplaced fracture of the tuft of the distal phalanx of the left middle finger. This was interpreted by the radiologist and myself. Emergency Department Course and Treatment: The wound was cleaned and irrigated with copious amounts of normal saline. The wound was anesthetized with 1% plain lidocaine via digital block. The wound was closed with 5 simple interrupted #4 -0 nylon sutures under sterile technique. Patient tolerated the procedure well. Bacitracin dressing was applied. Patient was given a prescription for Keflex. Patient was given his first dose here. Patient was instructed to ice and elevate the left middle finger. Patient was instructed to follow-up with his primary care physician in 7 days for wound recheck and suture removal. Patient was instructed return if worse in any way. Patient understood and was agreeable with the plan. All questions were answered. Disposition: Discharge home Impression: 1. Open fracture distal phalanx left middle finger 2. Laceration repair This note was generated with PasswordBoxation software. It may contain incorrect words, spelling, and punctuation that were not noted in review of the chart prior to signing ED Disposition - Plan for ED Patient: Disposition: Home or Assisted Living Diagnosis: Open fracture of distal phalanx of left middle finger Instructions: ED Fx Finger Open Prescriptions: Cephalexin [Keflex] 500 mg PO Q6 #40 cap Prescription Printed Referrals: Araceli Lee MD [Primary Care Provider] - 7 Days for suture removal
[2019-08-05] MEDS: BACITRACIN 15 GM Tube 1 APPLIC TOPICAL (15:07)
== END 2019-08-05 16:27 | disposition home or self-care (01) ==
PROVIDERS: Emergency Provider Emergency Medicine; PCP Internal Medicine
DX: S62.663B Nondisplaced fracture of distal phalanx of left middle finger, initial encounter for open fracture (principal); W23.1XXA Caught, crushed, jammed, or pinched between stationary objects, initial encounter; Y93.89 Activity, other specified; Y92.9 Unspecified place or not applicable; I10 Essential (primary) hypertension
CPT/HCPCS: 12002; 73140; 90471; 90715; 99284

== ENCOUNTER → 2020-06-09 08:30 | Outpatient (CLI) | payer OTHER, SELFPAY ==
[2020-05-27 14:59] VITALS: BMI 23.0
--- NOTE | 2020-06-09 08:37 | CDU_ITS ---
Reason For Study: Amaurosis Fugax Rt. Velocities/BP Lt. Velocities/BP Prox CCA 81/23 cm/sec. Prox CCA 107/23 cm/sec. Mid CCA 66/11 cm/sec. Mid CCA 72/27 cm/sec. Dist CCA 67/20 cm/sec. Dist CCA 56/20 cm/sec. Prox ICA 79/27 cm/sec. Prox ICA 71/26 cm/sec. Mid ICA 79/34 cm/sec. Mid ICA 78/27 cm/sec. Dist ICA 100/32 cm/sec. Dist ICA 82/35 cm/sec. Rt. ICA/CCA = 1.5. Lt. ICA/CCA = 1.1. Prox ECA 95/12 cm/sec. Prox ECA 79/15 cm/sec. Rt. Vert. 58/17 cm/sec. Lt. Vert. 51/19 cm/sec. Right Extracranial There is intimal thickening but no significant atherosclerotic plaque noted in the right common carotid artery. There is intimal thickening but no significant atherosclerotic plaque noted in the right internal carotid artery. There is intimal thickening but no significant atherosclerotic plaque noted in the right external carotid artery. Antegrade flow is noted in the right vertebral artery. Left Extracranial There is intimal thickening but no significant atherosclerotic plaque noted in the left common carotid artery. There is heterogeneous, smooth atherosclerotic plaque noted in the left internal carotid artery. There is no significant atherosclerotic plaque noted in the left external carotid artery. Antegrade flow is noted in the left vertebral artery. Procedure Carotid Duplex 06392. This is a Carotid Duplex examination using B-mode, color flow and specral Doppler. Exam performed in department. VL/Carotid Duplex Ultrasound Interpretation Summary Intimal thickening of the right internal carotid artery with less than 50% sten osis Less than 50% stenosis right external carotid artery Smooth plaque at the proximal left internal carotid artery with less than 50% s tenosis Less than 50% stenosis left external carotid artery Patent and antegrade vertebral arteries bilaterally Ordering Physician: Jose Kwon Referring Physician: Araceli Lee Performed By: Aurora Enamorado RDCS, RVT
== END ==
PROVIDERS: PCP Internal Medicine; Referring Provider Ophthalmology; Visit Provider Ophthalmology
DX: H34.212 Partial retinal artery occlusion, left eye (principal); I65.23 Occlusion and stenosis of bilateral carotid arteries
CPT/HCPCS: 93880

== ENCOUNTER → 2020-08-30 14:23 | Outpatient (CLI) | payer OTHER, SELFPAY ==
[2020-05-27 14:59] VITALS: BMI 23.0
--- NOTE | 2020-08-30 14:31 | ECHOCS_ITS ---
Reason For Study: Valve Replacement Eval Procedure This was a 2D Doppler, Color Flow transthoracic echocardiogram. Exam performed in department. Left Ventricle Normal LV size. Left ventricular systolic function is normal. The estimated ejection fraction is 55 %. Stage 1 diastolic dysfunction. No regional wall motion abnormalities noted. Right Ventricle Normal RV size. Normal systolic function. Atria Normal left atrium. Normal right atrium. Mitral Valve Normal mitral valve. Tricuspid Valve Normal tricuspid valve. Mild (1+) tricuspid valve insufficiency. Pulmonary artery systolic pressure is 30 mmHg. Aortic Valve Peak aortic valve gradient 28 mmHg. Mean aortic valve gradient 16 mmHg. Trivial aortic valve insufficiency. Bioprosthetic aortic valve. Pulmonic Valve Normal pulmonic valve. Great Vessels Normal aortic root. The pulmonary artery is normal size. Inferior vena cava collapse with sniff. Pericardium/Pleural No pericardial effusion. Medication Diluted definity 3ml given slow IV push to enhance endocardial definition. MMode/2D Measurements & Calculations LVIDd: 4.5 cm IVSd: 1.3 cm LVOT diam: 2.1 cm LVIDs: 2.8 cm LVPWd: 1.0 cm RVDd: 4.8 cm FS: 36.6 % LVOT area: 3.4 cm2 Ao root diam: 2.3 cm LAV(MOD-bp): 62.1 ml LVAd ap4: 36.5 cm2 LAV(MOD-bp) Indexed: 32.8 ml/m2 LVLd ap4: 9.4 cm LAV(MOD-sp2): 76.7 ml EDV(MOD-sp4): 117.3 ml LAV(MOD-sp4): 45.9 ml EDV(sp4-el): 120.2 ml LVAs ap4: 21.2 cm2 LVLs ap4: 7.3 cm ESV(MOD-sp4): 52.6 ml ESV(sp4-el): 52.3 ml EF(MOD-sp4): 55.2 % EF(sp4-el): 56.4 % LVAd ap2: 32.8 cm2 SV(MOD-sp4): 64.7 ml SV(MOD-sp2): 69.9 ml LVLd ap2: 8.9 cm EDV(MOD-sp2): 101.1 ml EDV(sp2-el): 103.3 ml LVAs ap2: 15.7 cm2 LVLs ap2: 6.9 cm ESV(MOD-sp2): 31.2 ml ESV(sp2-el): 30.6 ml EF(MOD-sp2): 69.2 % SV(sp4-el): 67.8 ml LA dimension(2D): 3.8 cm LA A4 area: 17.6 cm2 RA A4 area: 15.7 cm2 Doppler Measurements & Calculations MV E max dane: 46.1 cm/sec Lat Peak E' Dane: 11.7 cm/sec Med Peak E' Dane: 10.3 cm/sec MV A max dane: 55.5 cm/sec E/E' lat: 3.9 E/E' med: 4.5 MV E/A: 0.83 Ao V2 max: 265.8 cm/sec LV V1 max: 129.6 cm/sec SV(LVOT): 90.5 ml Ao max P.3 mmHg LV V1 max P.7 mmHg Ao V2 mean: 193.6 cm/sec LV V1 mean P.1 mmHg Ao mean P.4 mmHg LV V1 mean: 96.4 cm/sec Ao V2 VTI: 53.5 cm LV V1 VTI: 26.8 cm RADHA(I,D): 1.7 cm2 RADHA(V,D): 1.6 cm2 PA V2 max: 120.8 cm/sec TR max dane: 254.7 cm/sec TR max P.0 mmHg ECHO/Echo Complete W/ Contrast Interpretation Summary Normal LV size. Left ventricular systolic function is normal. The estimated ejection fraction is 55 %. Stage 1 diastolic dysfunction. Bioprosthetic aortic valve. Mean aortic valve gradient 16 mmHg. Contrast injection was performed. Ordering Physician: Jerzy Guo Referring Physician: Araceli Lee Performed By: Aurora Enamorado, KRISTEL, RVT
== END ==
PROVIDERS: PCP Internal Medicine; Referring Provider Internal Medicine Cardiovascular Disease; Visit Provider Internal Medicine Cardiovascular Disease
DX: Z95.2 Presence of prosthetic heart valve (principal)
CPT/HCPCS: 93306; Q9957; A4216; C8929; J3490

== ENCOUNTER → 2020-12-10 09:53 | Outpatient (CLI) | payer OTHER, SELFPAY ==
[2020-12-10 12:23] LABS: Absolute Lymphocyte Count 1.43 X10^3/uL (0.83-4.51); Absolute Neutrophil Count 2.9 X10^3/uL (2.0-7.7); Basophil# 0.06 X10^3/uL; Basophil% 1.1 % (0-1); Eosinophil# 0.24 X10^3/uL; Eosinophils% 4.5 % (0-5); Lymphocyte # 1.43 X10^3/ul (0.83-4.51); Lymphocyte % 27.1 % (19-41); Mean Corp Hgb Conc 33.3 g/dL (32-36); Mean Corpuscular Hgb 30.2 pg (27.0-32.0); Mean Corpuscular Volume 90.7 fL (80-94); Monocyte# 0.68 X10^3/uL; Monocyte% 12.9 % (0-10); NRBC Flagged by Analyzer 0 % (0-5); Neutrophil # 2.86 X10^3/uL (2.7-7.7); Neutrophil % 54.2 % (47-70); Platelet Count 188 K/mm3 (150-450); RBC Distribution Width CV 13.2 % (11.6-14.6); RBC Distribution Width SD 43.8 fl (35.1-43.9); Red Blood Count 4.63 M/mm3 (4.6-6.2); White Blood Count 5.3 K/mm3 (4.4-11.0)
[2020-12-10 13:07] LABS: ALB/GLOB Ratio 1.2 RATIO (0.9-2.4); AST(SGOT) 28 U/L (15-37); Alanine Aminotransfer ALT/SGPT 30 U/L (16-61); Albumin, Serum 3.8 g/dL (3.2-5.0); Alkaline Phosphatase 74 U/L (45-117); Anion Gap 3 (5-15); BUN 14 mg/dL (7-18); BUN/Creat Ratio 15.4 RATIO (10-20); Chloride 109 mmol/L (98-107); Cholesterol 124 mg/dL (200); Creatinine, Serum 0.91 mg/dL (0.70-1.30); EST Glomerular Filtration Rate 88 mL/min (>60); Est Glom Filt Rate - Afr Amer 107 mL/min (>60); Globulin 3.1 g/dL (2.2-4.2); Glucose 88 mg/dL (74-106); High Density Lipoprotein 81 mg/dL; Potassium 4.1 mmol/L (3.5-5.1); Protein, Total 6.9 g/dL (6.4-8.2); Sodium Level 140 mmol/L (136-145); Thyroid Stim Hormone (TSH) 2.38 uIU/mL (0.358-3.74); Triglycerides 82 mg/dL; Very Low Density Lipoprotein 16 mg/dL (5-40)
== END ==
PROVIDERS: PCP Internal Medicine; Referring Provider Nurse Practitioner Family; Visit Provider Nurse Practitioner Family
DX: Z00.00 Encounter for general adult medical examination without abnormal findings (principal)
CPT/HCPCS: 36415; 80053; 80061; 84153; 84443; 85025; G0103

== ENCOUNTER → 2020-12-28 16:39 | Outpatient (CLI) | payer OTHER, SELFPAY | PROVIDERS: PCP Internal Medicine; Visit Provider Urology | DX: R97.20 Elevated prostate specific antigen [PSA] (principal) | CPT/HCPCS: 36415; 84153 ==

== ENCOUNTER → 2021-01-24 | Outpatient (CLI) | payer OTHER, SELFPAY ==
--- NOTE | 2021-01-24 | PROSBIL_PTH ---
PATIENT: AFSHIN FARFAN LOC: [facility] U#:[id number] AGE/SX: 65/M ROOM: RE01/24/[address]: Dr. Tarun Blount MD : 1955 BED: DIS: 01/24/2021 SPEC #: [id number] RECD: 01/25/21 08:38 STATUS: AQUILINO RETati #: [id number] SEUN: 01/24/21 00:[address]: Tarun Blount DEPT: SURGICAL PATHOLOGY RECD BY: Nata Lora ENTERED: 01/25/21 08:39 SP TYPE: PROST BX KALEB DR: Dr. Araceli Lee MD Tissues: A - PROSTATE RIGHT B - PROSTATE RIGHT C - PROSTATE RIGHT D - PROSTATE LEFT E - PROSTATE LEFT F - PROSTATE LEFT Procedures: PROSTATE BX HEADER OPERATION: Prostate biopsy PRE-OP DIAGNOSIS: R97.20 TISSUE SUBMITTED: A - Right apex, B - Right mid, C - Right base, D - Left apex, E - Left mid, F - Left base MICROSCOPIC DIAGNOSIS A. Right prostate, apex, core biopsy: Adenocarcinoma. Kihei grade: 6 (3+3) Cores involved: 1 out of 2 cores Tissue involved: 45% Greatest tumor length: 4 millimeters B. Right prostate, mid, core biopsy: Adenocarcinoma. Fadi grade: 6 (3+3) Cores involved: 1 out of 2 cores Tissue involved: <1% Greatest tumor length: 0.5 millimeters See comment. C. Right prostate, base, core biopsy: Focal chronic inflammation and glandular atrophy. D. Left prostate, apex, core biopsy: Adenocarcinoma. Fadi grade: 6 (3+3) Cores involved: 1 out of 1 core Tissue involved: 50% Greatest tumor length: 2.2 millimeters See comment. E. Left prostate, mid, core biopsy: Focal high-grade prostatic intraepithelial neoplasia (HGPIN). Mild chronic inflammation. F. Left prostate, base, core biopsy: Focal high-grade prostatic intraepithelial neoplasia (HGPIN). AM:rodolfo 01/26/2021 AM:rodolfo 02/07/2021 COMMENT B & D. Immunohistochemistry ([id number]) supports the above diagnosis. MICROSCOPIC DESCRIPTION Slides are reviewed. GROSS DESCRIPTION A - Received is one container designated prostate, right apex. The specimen consists of two elongated fragments of light camacho-white soft tissue each measuring 1 cm in length and 0.1 cm in diameter. The specimen is totally submitted in one cassette. B - Received is one container designated prostate, right mid. The specimen consists of two elongated fragments of light camacho-white soft tissue each measuring 1 cm in length and 0.1 cm in diameter. The specimen is totally submitted in one cassette. C - Received is one container designated prostate, right base. The specimen consists of two elongated fragments of light camacho-white soft tissue each measuring 1 cm in length and 0.1 cm in diameter. The specimen is totally submitted in one cassette. D - Received is one container designated prostate, left apex. The specimen consists of one elongated fragment of light camacho-white soft tissue measuring 1 cm in length and 0.1 cm in diameter. The specimen is totally submitted in one cassette. E - Received is one container designated prostate, left mid. The specimen consists of two elongated fragments of light camacho-white soft tissue each measuring 1 cm in length and 0.1 cm in diameter. The specimen is totally submitted in one cassette. F - Received is one container designated prostate, left base. The specimen consists of two elongated fragments of light camacho-white soft tissue each measuring 1 cm in length and 0.1 cm in diameter. The specimen is totally submitted in one cassette. / AM:rodolfo 01/25/21 TC:0 CPT: 99540 x6 ADDENDUM ADDENDUM ADDENDUM ADDENDUM ADDENDUM ADDENDUM ADDENDUM ADDENDUM ADDENDUM ADDENDUM ADDENDUM ADDENDUM ADDENDUM ADDENDUM ADDENDUM ADDENDUM ADDENDUM ADDENDUM ADDENDUM ADDENDUM ADDENDUM ADDENDUM ADDENDUM ADDENDUM ADDENDUM 03/15/2021 08:23 ADDENDUM 03/15/2021 08:23 ADDENDUM 03/15/2021 08:23 ADDENDUM 03/15/2021 08:23 ADDENDUM 03/15/2021 08:23 This addendum is added to incorporate an outside pathology consultation report. The case was examined at [facility] (#[id number]) and the following diagnosis was rendered. A. Right prostate, apex, core biopsy: Adenocarcinoma of the prostate, Kihei score 3+3=6 (grade group 1), involving one of two cores (25%, 3 mm). B. Right prostate, mid, core biopsy: Adenocarcinoma of the prostate, Fadi score 3+4=7 (grade group 2), involving one of two cores (10%, 1 mm). Kihei pattern 4 comprises 10% of the tumor. No cribriform pattern 4 is identified. C. Right prostate, base, core biopsy: Benign prostatic tissue. D. Left prostate, apex, core biopsy: Adenocarcinoma of the prostate, Kihei score 3+3=6 (grade group 1), involving one of one core (35%, 2 mm). E. Left prostate, mid, core biopsy: Focal high-grade prostatic intraepithelial neoplasia. F. Left prostate, base, core biopsy: Focal high-grade prostatic intraepithelial neoplasia. Please see complete above mentioned consultation report in EMR
--- NOTE | 2021-01-24 | PROSBIL_PTH ---
PATIENT: AFSHIN FARFAN LOC: [facility] U#:[id number] AGE/SX: 65/M ROOM: RE01/24/[address]: Dr. Tarun Blount MD : 1955 BED: DIS: 01/24/2021 SPEC #: [id number] RECD: 01/25/21 08:38 STATUS: AQUILINO RETati #: [id number] SEUN: 01/24/21 00:[address]: Tarun Blount DEPT: SURGICAL PATHOLOGY RECD BY: Nata Lora ENTERED: 01/25/21 08:39 SP TYPE: PROST BX KALEB DR: Dr. Araceli Lee MD Tissues: A - PROSTATE RIGHT B - PROSTATE RIGHT C - PROSTATE RIGHT D - PROSTATE LEFT E - PROSTATE LEFT F - PROSTATE LEFT Procedures: PROSTATE BX HEADER OPERATION: Prostate biopsy PRE-OP DIAGNOSIS: R97.20 TISSUE SUBMITTED: A - Right apex, B - Right mid, C - Right base, D - Left apex, E - Left mid, F - Left base MICROSCOPIC DIAGNOSIS A. Right prostate, apex, core biopsy: Adenocarcinoma. Fadi grade: 6 (3+3) Cores involved: 1 out of 2 cores Tissue involved: 45% Greatest tumor length: 4 millimeters B. Right prostate, mid, core biopsy: Adenocarcinoma. Fadi grade: 6 (3+3) Cores involved: 2 out of 2 cores Tissue involved: <1% Greatest tumor length: 0.5 millimeters See comment. C. Right prostate, base, core biopsy: Focal chronic inflammation and glandular atrophy. D. Left prostate, apex, core biopsy: Adenocarcinoma. Neoga grade: 6 (3+3) Cores involved: 1 out of 1 core Tissue involved: 50% Greatest tumor length: 2.2 millimeters See comment. E. Left prostate, mid, core biopsy: Focal high-grade prostatic intraepithelial neoplasia (HGPIN). Mild chronic inflammation. F. Left prostate, base, core biopsy: Focal high-grade prostatic intraepithelial neoplasia (HGPIN). AM:rodolfo 01/26/2021 COMMENT B & D. Immunohistochemistry ([id number]) supports the above diagnosis. MICROSCOPIC DESCRIPTION Slides are reviewed. GROSS DESCRIPTION A - Received is one container designated prostate, right apex. The specimen consists of two elongated fragments of light camacho-white soft tissue each measuring 1 cm in length and 0.1 cm in diameter. The specimen is totally submitted in one cassette. B - Received is one container designated prostate, right mid. The specimen consists of two elongated fragments of light camacho-white soft tissue each measuring 1 cm in length and 0.1 cm in diameter. The specimen is totally submitted in one cassette. C - Received is one container designated prostate, right base. The specimen consists of two elongated fragments of light camacho-white soft tissue each measuring 1 cm in length and 0.1 cm in diameter. The specimen is totally submitted in one cassette. D - Received is one container designated prostate, left apex. The specimen consists of one elongated fragment of light camacho-white soft tissue measuring 1 cm in length and 0.1 cm in diameter. The specimen is totally submitted in one cassette. E - Received is one container designated prostate, left mid. The specimen consists of two elongated fragments of light camacho-white soft tissue each measuring 1 cm in length and 0.1 cm in diameter. The specimen is totally submitted in one cassette. F - Received is one container designated prostate, left base. The specimen consists of two elongated fragments of light camacho-white soft tissue each measuring 1 cm in length and 0.1 cm in diameter. The specimen is totally submitted in one cassette. / AM:rodolfo 01/25/21 TC:0 CPT: 75432 x6
--- NOTE | 2021-01-24 | IMM_PTH ---
PATIENT: AFSHIN FARFAN LOC: [facility] U#:[id number] AGE/SX: 65/M ROOM: RE01/24/[address]: Dr. Tarun Blount MD : 1955 BED: DIS: 01/24/2021 SPEC #: [id number] RECD: 01/26/21 14:45 STATUS: AQUILINO REQ #: [id number] SEUN: 01/24/21 00:[address]: Tarun Blount DEPT: IMMUNOHISTOCHEMISTRY RECD BY: Rebecca Monroe ENTERED: 01/26/21 14:46 SP TYPE: IMMUNO OTHR DR: Dr. Araceli Lee MD Tissues: B - PROSTATE RIGHT D - PROSTATE LEFT Procedures: 34BE12 (add) P40 (add) 34BE12 (initial) S-100 (add) PHYSICIAN & INSTITUTION [place] [id number] SPECIMEN INFORMATION: Tissue Source: B - Right prostate, mid, core biopsy, D - Left prostate, apex, core biopsy Clinical Info: Elevated PSA Specimen Number: [id number] B & D CPT code: 77996, 41953 x5 METHODOLOGY: Deparaffinized sections of prefer/formalin-fixed tissue or PAP/DQ stained slides are incubated with monoclonal/polyclonal antibodies/oligonucleotide probes. Localization is made via biotin free immunoperoxidase method. Appropriate controls are performed and reacted as expected. Results on target cell population are indicated in the following table: RESULTS: ANTIBODY / CLONE RESULT Block B P40 (BC28) negative 34BE12 (34BE12) negative S-100 (4C4.9) negative Block D P40 (BC28) negative 34BE12 (34BE12) negative S-100 (4C4.9) negative These tests were developed and their performance characteristics determined by [facility]. They may not have been cleared or approved by the U.S. Food and Drug Administration. The FDA has determined that such clearance or approval is not necessary. The above immunohistochemical/dualISH markers are ordered and reviewed by the Pathologist. INTERPRETATION: B. Right prostate, mid, core biopsy: Adenocarcinoma. D. Left prostate, apex, core biopsy: Adenocarcinoma. AM:rodolfo 01/27/2021
== END | disposition home or self-care (01) ==
LOC: LABSPEC 16:44
PROVIDERS: PCP Internal Medicine; Visit Provider Urology
DX: C61 Malignant neoplasm of prostate (principal)
CPT/HCPCS: 88305; 88341; 88342; G0416

== ENCOUNTER → 2021-07-21 | Outpatient (CLI) | payer OTHER, SELFPAY ==
--- NOTE | 2021-07-21 07:46 | ECHOD_ITS ---
Reason For Study: MURMUR Procedure This was a 2D Doppler, Color Flow transthoracic echocardiogram. Exam performed in department. Left Ventricle Normal LV size. Left ventricular systolic function is normal. The estimated ejection fraction is 50 %. There is borderline global hypokinesis of the left ventricle. Right Ventricle Normal RV size. Normal systolic function. Atria The left atrium is mildly enlarged. Normal right atrium. Mitral Valve Normal mitral valve. Mild (1+) eccentric mitral valve insufficiency. Tricuspid Valve Normal tricuspid valve. Mild tricuspid valve insufficiency. Pulmonary artery systolic pressure is 24 mmHg. Aortic Valve Peak aortic valve gradient 26 mmHg. Mean aortic valve gradient 16 mmHg. Calculated aortic valve area (continuity equation) is 1.2 cm2. Bioprosthetic aortic valve. Pericardium/Pleural No pericardial effusion. MMode/2D Measurements & Calculations LVIDd: 5.1 cm IVSd: 1.1 cm LVOT diam: 1.9 cm LVIDs: 3.6 cm LVPWd: 1.1 cm LVOT area: 3.0 cm2 RVDd: 4.0 cm FS: 30.1 % Ao root diam: 3.1 cm LAV(MOD-bp): 72.7 ml LVAd ap4: 44.8 cm2 LAV(MOD-bp) Indexed: 37.9 ml/m2 LVLd ap4: 9.3 cm LAV(MOD-sp2): 72.0 ml EDV(MOD-sp4): 175.4 ml LAV(MOD-sp4): 73.4 ml EDV(sp4-el): 181.9 ml LVAs ap4: 29.1 cm2 LVLs ap4: 8.1 cm ESV(MOD-sp4): 88.2 ml ESV(sp4-el): 89.3 ml EF(MOD-sp4): 49.7 % EF(sp4-el): 50.9 % SV(MOD-sp4): 87.1 ml SV(sp4-el): 92.6 ml LA A4 area: 22.8 cm2 LA dimension(2D): 4.1 cm RA A4 area: 19.4 cm2 Time Measurements MV dec time: 0.24 sec Doppler Measurements & Calculations MV E max dane: 55.1 cm/sec Lat Peak E' Dane: 13.6 cm/sec Med Peak E' Dane: 4.7 cm/sec MV A max dane: 55.1 cm/sec E/E' lat: 4.0 E/E' med: 11.8 MV E/A: 1.0 Ao V2 max: 257.7 cm/sec LV V1 max: 108.5 cm/sec SV(LVOT): 88.5 ml Ao max P.7 mmHg LV V1 max P.9 mmHg Ao V2 mean: 186.6 cm/sec LV V1 mean P.9 mmHg Ao mean P.9 mmHg LV V1 mean: 79.6 cm/sec Ao V2 VTI: 71.7 cm LV V1 VTI: 29.9 cm RADHA(I,D): 1.2 cm2 RADHA(V,D): 1.2 cm2 PA V2 max: 101.0 cm/sec TR max dane: 229.5 cm/sec TR max P.1 mmHg ECHO/Echo Complete Interpretation Summary Normal LV size. Left ventricular systolic function is normal. The estimated ejection fraction is 50 %. The left atrium is mildly enlarged. Mean aortic valve gradient 16 mmHg. Calculated aortic valve area (continuity equation) is 1.2 cm2. Ordering Physician: Inge Neumann/Jerzy Guo Referring Physician: JOE HUGHES Performed By: Rain Cardona RDCS
== END | disposition home or self-care (01) ==
LOC: CVS 07:44
PROVIDERS: PCP Internal Medicine; Referring Provider Physician Assistant Medical; Visit Provider Physician Assistant Medical
DX: R00.1 Bradycardia, unspecified (principal); Z95.2 Presence of prosthetic heart valve
CPT/HCPCS: 93306

== ENCOUNTER 2022-04-18 09:10 | Day surgery (SDC) | payer OTHER, SELFPAY ==
[2022-04-18 09:32] VITALS: BP 100/67; PULSE 67; RESP 16; TEMP 36.1; O2SAT 99; BMI 21.5
[2022-04-18] MEDS: Lactated Ringers 1,000 ML 15 ML IV (09:35)
--- NOTE | 2022-04-18 09:55 | PCM.HP.BLA ---
History and Physical Date of Admission: 04/18/22 Intake Vital Signs ? 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 Is patient in pain?: No Allergies No Known Allergies Allergy (Verified 04/10/22 13:43) Medications multivitamin 1 ea PO DAILY 08/22/18 [History Confirmed 04/10/22] aspirin 81 mg chewable tablet 81 mg PO QHS 03/25/19 [History Confirmed 04/10/22] atorvastatin 40 mg tablet 40 mg PO QHS #90 tabs 10/17/21 [Rx Confirmed 04/10/22] metoprolol tartrate 25 mg tablet 12.5 mg PO BID #90 tabs 10/17/21 [Rx Confirmed 04/10/22] losartan 25 mg tablet 25 mg PO DAILY #90 tabs 02/13/22 [Rx Confirmed 04/10/22] crisaborole 2 % topical ointment (Eucrisa) 1 applic topical BID #100 grams 03/17/22 [Rx Confirmed 04/10/22] selenium sulfide 2.5 % lotion 1 applic topical 2XW 2 weeks #120 mL 03/17/22 [Rx Confirmed 04/10/22] tamsulosin 0.4 mg capsule 0.4 mg PO QHS #90 caps 03/31/22 [Rx Confirmed 04/10/22] PFSH Medical History? Adenocarcinoma of prostate Bicuspid aortic valve CVA (cerebral vascular accident) (08/22/18) Dilated aortic root Lump of right breast Nonrheumatic aortic (valve) stenosis with insufficiency Osteoarthritis Premature ventricular contractions Secondary pulmonary arterial hypertension Situational anxiety Thoracic aortic aneurysm Visual disturbance Surgical History? H/O aortic valve replacement (08/14/18) H/O right breast biopsy (11/2017) History of appendectomy History of left heart catheterization (08/12/18) History of orthopedic surgery History of thoracic aortic aneurysm repair (08/14/18) Hx of knee surgery Family History? Mother?? Heart disease Breast cancer Cervical cancerFather?? ,? narrowing of aorta Heart diseaseBrother Anxiety Social History? Smoking Status:? Never smoker Smokeless tobacco user:? chewing tobacco how long ago did patient quit smoking:? No tobacco for last 16 years. Never smoked cigarettes. alcohol intake:? current alcohol intake frequency: a few times a month Alcohol type: beer substance use type:? does not use caffeine:? Yes Type: coffee Number of servings: 3 what type of physical activity do you participate in:? walking, bicycling and weight training HPI HPI HPI: Patient is a 67-year-old male here for colonoscopy.? His last colonoscopy was in 2014 and at that time he had a small polyp which was ablated.? Patient is due for follow-up colonoscopy.? He denies any abdominal pain or blood in the stool.? He denies family history of colon cancer.? He does have a personal history of prostate cancer. ROS General General: No weight change, appetite, fatigue, colon cancer, breast cancer or weakness HEENT HEENT: No difficulty swallowing, eye injury, eye surgery, swollen glands or hoarseness Endo Endocrine: No thyroid disease, diabetes mellitus, thyroid cancer, Hair loss, heat intolerance or cold intolerance Skin Skin: Yes rash; No changing moles Breast Breast: No left breast lump, right breast lump, nipple discharge, breast pain, abnormal mammogram, abnormal US or breast enlargement Musc Musculoskeletal: No back problems, arthritis, rheumatoid arthritis, gout or joint pain Cardio Cardiovascular: Yes heart disease and high blood pressure; No murmur, pacemaker, atrial fibrillation, heart attack, heart stent, palpitations, shortness of breat with exertion or chest pain Psych Psychiatric: No depression, anxiety or hearing voices Resp Respiratory: No shortness of breath, No sleep apnea, No cough, No COPD, No asthma, No emphysema and No wheezing Gastro Gastrointestinal: No abdominal pain, No nausea or vomiting, No diarrhea, No constipation, No blood in stool, No acid reflux, Yes hemorrhoids, No ulcers, No gallbladder problem and No black,tarry stools Andrea Hematologic: No blood thinners, No blood disorders, No bleeding, No anemia and No blood clots Neuro Neurologic: No system reviewed and no additional complaints, except as documented, No as per HPI, No abnormal gait, No abnormal hearing, No abnormal movements, No abnormal speech, No behavioral changes, No burning sensations, No confusion, No convulsions, No disequilibrium, No dizziness, No localized weakness, No frequent falls, No headache(s), No lack of coordination, No loss of vision, No memory loss, No numbness, No other visual disturbances, No radicular pain, No restless legs, No sensory deficit, No syncope, No tingling, No tremor(s), No weakness and No other Exam Const General: cooperative Orientation: alert and oriented x3 HENMT Head: normal to inspection Neck Neck: normal visual inspection and full ROM Chest Chest palpation & inspection: normal inspection of the chest Resp Effort & Inspection: normal respiratory effort Auscultation: clear to auscultation bilaterally Cardio Rate: regular rate Rhythm: regular rhythm GI Inspection: non-distended Palpation: soft and nontender Skin General: no rashes or lesions noted Neuro General: patient alert and patient oriented x3 Extrem General: full ROM Psych Appearance: grossly normal Mental Status: mental status grossly normal Assessment and Plan Assessment and Plan (1) History of colon polyps: ?Status:?Acute ?Plan: Patient had ablation of a polyp 8 years ago and should have had repeat colonoscopy 5 years later.? I will plan for surveillance colonoscopy for history of polyps at this time.? I explained endoscopy in detail to the patient.? I explained the risks including but not limited to stroke or heart attack with anesthesia, perforation of the GI tract, bleeding, infection.? I explained that any of these could necessitate further emergency surgery.? The patient understands and all questions were answered sufficiently.? The patient wishes to proceed with procedure. Everardo Cordon MD Pager: [facility] [address] [place] [address], [address] [place] [address] Office: I have examined the patient and the H&P has been reviewed. There are no clinical changes since date of exam.
[2022-04-18 10:30] VITALS: BP 100/67; BP 91/53; PULSE 83; RESP 16; TEMP 36.1; O2SAT 96
--- NOTE | 2022-04-18 10:33 | OP.COLON_ITS ---
Patient Name: Sánchez Aponte Procedure Date: 04/18/2022 10:02 AM Date of : 1955 Age: 67 Procedure: Colonoscopy Indications: High risk colon cancer surveillance: Personal history of colonic polyps Providers: Everardo Cordon MD Medicines: Monitored Anesthesia Care Patient Profile: This is a 67 year old male. Refer to note in patient chart for documentation of history and physical. Last Colonoscopy: 5 years ago. Complications: No immediate complications. Procedure: Pre-Anesthesia Assessment: - Prior to the procedure, a History and Physical was performed, and patient medications and allergies were reviewed. The patient's tolerance of previous anesthesia was also reviewed. The risks and benefits of the procedure and the sedation options and risks were discussed with the patient. All questions were answered, and informed consent was obtained. Prior Anticoagulants: The patient has taken no previous anticoagulant or antiplatelet agents. After reviewing the risks and benefits, the patient was deemed in satisfactory condition to undergo the procedure. After I obtained informed consent, the scope was passed under direct vision. Throughout the procedure, the patient's blood pressure, pulse, and oxygen saturations were monitored continuously. The colonoscope was introduced through the anus and advanced to the cecum, identified by appendiceal orifice and ileocecal valve. The colonoscopy was performed without difficulty. The patient tolerated the procedure well. The quality of the bowel preparation was good. Scope In: 10:14:58 AM Scope Withdrawal Time 0 hours 4 minutes 10 seconds Scope Out: 10:26:46 AM Total Procedure Duration Time 0 hours 11 minutes 48 seconds Findings: The entire examined colon appeared normal on direct and retroflexion views. Impression: - The entire examined colon is normal on direct and retroflexion views. - No specimens collected. Recommendation: - Discharge patient to home. - Resume previous diet. - Continue present medications. - Repeat colonoscopy in 10 years for screening purposes. Procedure Code(s): --- Professional --- 36140, Colonoscopy, flexible; diagnostic, including collection of specimen(s) by brushing or washing, when performed (separate procedure) Diagnosis Code(s): --- Professional --- Z86.010, Personal history of colonic polyps CPT copyright 2017 [employer]. All rights reserved. The codes documented in this report are preliminary and upon catholic priest review may be revised to meet current compliance requirements. Everardo Cordon MD 04/18/2022 10:32:47 AM This report has been signed electronically. Number of Addenda: 0 Note Initiated On: 04/18/2022 10:02 AM
--- NOTE | 2022-04-18 10:33 | OP.CCLET_ITS ---
04/18/2022 Araceli Lee MD [address] [place] [address] Re : Colonoscopy procedure for Sánchez Aponte Dear Dr. Lee This procedure was performed on Monday, April 18, 2022. My impressions and recommendations are as follows: Impressions : - The entire examined colon is normal on direct and retroflexion views. - No specimens collected. Recommendations : - Discharge patient to home. - Resume previous diet. - Continue present medications. - Repeat colonoscopy in 10 years for screening purposes. My findings are described in the full procedure note, which is enclosed. If I can be of further assistance, please feel free to contact me at Doctor phone number(s): , Work: . Sincerely, Everardo Cordon MD 04/18/2022 10:32:47 AM This report has been signed electronically.
[2022-04-18 10:35] VITALS: BP 100/67; BP 94/51; PULSE 76; RESP 16; O2SAT 95
[2022-04-18 10:40] VITALS: BP 100/67; BP 91/60; PULSE 77; RESP 16; O2SAT 97
[2022-04-18 10:45] VITALS: BP 100/67; BP 103/61; PULSE 71; RESP 16; TEMP 36.4; O2SAT 95
[2022-04-18 11:03] VITALS: BP 100/67
== END 2022-04-18 11:21 | disposition home or self-care (01) ==
LOC: EN 09:15 → AC 09:16
PROVIDERS: PCP Internal Medicine; Referring Provider Internal Medicine; Visit Provider Surgery
PROC: 0DJD8ZZ Inspection of Lower Intestinal Tract, Via Natural or Artificial Opening Endoscopic (ICD-10-PCS; CPT 45378; principal; 2022-04-18 10:10)
DX: Z12.11 Encounter for screening for malignant neoplasm of colon (principal); E78.00 Pure hypercholesterolemia, unspecified; I10 Essential (primary) hypertension; Z86.010 Personal history of colon polyps; Z87.891 Personal history of nicotine dependence; Z86.73 Personal history of transient ischemic attack (TIA), and cerebral infarction without residual deficits; Z79.82 Long term (current) use of aspirin; Z79.899 Other long term (current) drug therapy; Z85.46 Personal history of malignant neoplasm of prostate
CPT/HCPCS: G0105; J7120; J2405

== ENCOUNTER → 2023-01-15 | Outpatient (CLI) | payer OTHER, SELFPAY ==
[2023-01-15 12:06] LABS: Absolute Neutrophil Count 2.7 X10^3/uL (2.0-7.7); Basophil# 0.07 X10^3/uL; Basophil% 1.4 % (0-1); Eosinophil# 0.26 X10^3/uL; Eosinophils% 5.3 % (0-5); Hematocrit 42.5 % (40-54); Lymphocyte % 24.6 % (19-41); Mean Corp Hgb Conc 32.9 g/dL (32-36); Mean Corpuscular Hgb 30.5 pg (27.0-32.0); Mean Corpuscular Volume 92.6 fL (80-94); Mean Platelet Vol. 9.6 fl (6.2-12.0); Monocyte# 0.57 X10^3/uL; Monocyte% 11.7 % (0-10); NRBC Flagged by Analyzer 0 % (0-5); Neutrophil # 2.72 X10^3/uL (2.7-7.7); Platelet Count 203 K/mm3 (150-450); RBC Distribution Width CV 13.6 % (11.6-14.6); RBC Distribution Width SD 46.2 fl (35.1-43.9); Red Blood Count 4.59 M/mm3 (4.6-6.2); White Blood Count 4.9 K/mm3 (4.4-11.0)
[2023-01-15 12:23] LABS: ALB/GLOB Ratio 1.2 RATIO (0.9-2.4); AST(SGOT) 29 U/L (15-37); Alanine Aminotransfer ALT/SGPT 28 U/L (16-61); Albumin, Serum 3.6 g/dL (3.2-5.0); Alkaline Phosphatase 86 U/L (45-117); Anion Gap 9 (5-15); BUN 18 mg/dL (7-18); BUN/Creat Ratio 21.3 RATIO (10-20); Calcium,Total 8.3 mg/dL (8.5-10.1); Chloride 110 mmol/L (98-107); Cholesterol 129 mg/dL (200); Creatinine, Serum 0.84 mg/dL (0.70-1.30); EST Glomerular Filtration Rate 96 mL/min (>60); Est Glom Filt Rate - Afr Amer 116 mL/min (>60); Globulin 2.9 g/dL (2.2-4.2); Glucose 109 mg/dL (74-106); High Density Lipoprotein 87 mg/dL; Potassium 3.9 mmol/L (3.5-5.1); Protein, Total 6.5 g/dL (6.4-8.2); Sodium Level 144 mmol/L (136-145); Triglycerides 75 mg/dL; Very Low Density Lipoprotein 15 mg/dL (5-40)
== END | disposition home or self-care (01) ==
LOC: BIMLAB 09:27
PROVIDERS: PCP Internal Medicine; Referring Provider Internal Medicine; Visit Provider Internal Medicine
DX: I10 Essential (primary) hypertension (principal)
CPT/HCPCS: 36415; 80053; 80061; 85025

== ENCOUNTER 2023-10-29 10:00 | Inpatient (IN) | payer MEDICARE, SELFPAY ==
[2023-10-29] VITALS (11 sets, daily range): BP systolic 100–169; BP diastolic 57–119; PULSE 50–91; RESP 15–22; TEMP 36.2–36.9; O2SAT 95–99; BMI 20.3; BMI 20.9
[2023-10-29 10:45] LABS: Absolute Lymphocyte Count 1.14 X10^3/uL (0.83-4.51); Absolute Neutrophil Count 6.8 X10^3/uL (2.0-7.7); Basophil# 0.05 X10^3/uL; Basophil% 0.6 % (0-1); Eosinophil# 0.08 X10^3/uL; Eosinophils% 0.9 % (0-5); Hematocrit 40.1 % (40-54); Hemoglobin 13.3 g/dL (13.0-16.5); Lymphocyte # 1.14 X10^3/ul (0.83-4.51); Lymphocyte % 12.8 % (19-41); Mean Corp Hgb Conc 33.2 g/dL (32-36); Mean Corpuscular Hgb 30.1 pg (27.0-32.0); Mean Corpuscular Volume 90.7 fL (80-94); Mean Platelet Vol. 9.4 fl (6.2-12.0); Monocyte# 0.78 X10^3/uL; Monocyte% 8.8 % (0-10); NRBC Flagged by Analyzer 0 % (0-5); Neutrophil % 76.6 % (47-70); Platelet Count 268 K/mm3 (150-450); RBC Distribution Width CV 12.8 % (11.6-14.6); RBC Distribution Width SD 42.4 fl (35.1-43.9); Red Blood Count 4.42 M/mm3 (4.6-6.2); White Blood Count 8.9 K/mm3 (4.4-11.0)
[2023-10-29 10:49] LABS: Color, Urine Yellow (Yellow); Glucose, Dipstick Normal (Normal); Ketone-Dipstick Negative (Negative); Leukocyte Esterase-Dipstick Negative /ul (Negative); Nitrite-Dipstick Negative (Negative); Occult Blood-Urine 10 /ul (Negative); Protein-Dipstick 15 mg/dl (Negative); Specific Gravity, Urine 1.015 (1.002-1.030); Urine Bilirubin Dipstick Negative (Negative); Urine Clarity Clear (Clear); Urine Urobilinogen Normal (Normal)
[2023-10-29 11:24] LABS: ALB/GLOB Ratio 1.1 RATIO (0.9-2.4); AST(SGOT) 22 U/L (15-37); Alanine Aminotransfer ALT/SGPT 28 U/L (16-61); Albumin, Serum 3.8 g/dL (3.2-5.0); Alkaline Phosphatase 79 U/L (45-117); Anion Gap 6 (5-15); BUN 17 mg/dL (7-18); Calcium,Total 9.6 mg/dL (8.5-10.1); Chloride 108 mmol/L (98-107); Creatinine, Serum 0.94 mg/dL (0.70-1.30); EST Glomerular Filtration Rate 84 mL/min (>60); Est Glom Filt Rate - Afr Amer 102 mL/min (>60); Estimated Creatinine Clearance 69.47 ml/min; Globulin 3.4 g/dL (2.2-4.2); Glucose 117 mg/dL (74-106); Potassium 4.6 mmol/L (3.5-5.1); Protein, Total 7.2 g/dL (6.4-8.2); Sodium Level 142 mmol/L (136-145)
[2023-10-29 11:55] LABS: Mucous, Urine 2+ /hpf (<or=2+)
[2023-10-29 11:56] LABS: Red Blood Cells-Urine 0-5 SEEN /hpf (0-5); Squamous Epithelial Cells - UA 0-5 SEEN /hpf (0-5); White Blood Cells 0-5 SEEN /hpf (0-5)
[2023-10-29 11:57] LABS: Bacteria RARE /hpf (None Seen)
[2023-10-29] MEDS: Ketorolac 15 MG/ML Vial IV (12:16)
[2023-10-29] MEDS: Ondansetron 4 MG/2 ML Vial IV (12:16)
[2023-10-29] MEDS: 0.9% Normal Saline (1000mL) 1,000 ML 250 ML IV (12:17)
[2023-10-29] MEDS: Morphine 4 MG/ML Syringe IV (12:17)
[2023-10-29 12:27] LABS: Lipase 30 U/L (13-75)
--- NOTE | 2023-10-29 12:31 | CT_ITS ---
INDICATION: epigastric pain EXAMINATION: CTA CHEST, ABDOMEN AND PELVIS WITH CONTRAST - TECHNIQUE: A CTA of the chest, abdomen, and pelvis is obtained with sagittal and coronal reconstructed MIP views. Three-dimensional surface rendered sequence of the thoracic and abdominal aorta was obtained. A radiation dose optimization technique was used for this scan. mL of [id number]-[id number]. Oral contrast: None. COMPARISON: None. FINDINGS: CT CHEST: THORACIC AORTA: No atheromatous disease, no aneurysmal changes or dissection. ABDOMINAL AORTA: No aneurysm or dissection. Scattered atherosclerotic calcific plaques of the abdominal aorta and common iliac arteries bilaterally. LUNGS: The lungs are well-expanded without acute or chronic changes. No effusions or pneumothorax. MEDIASTINUM: The thyroid gland is normal. No mediastinal or hilar adenopathy. HEART: Heart is normal size. No pericardial effusion. Prior midline sternotomy and aortic valve replacement. Coronary artery calcification. CT ABDOMEN AND PELVIS: LIVER: The liver enhances homogeneously. No masses identified. Perisplenic and perihepatic fluid. GALLBLADDER: The CBD is normal. Normal gallbladder. SPLEEN: Normal. PANCREAS: No masses or inflammation. ADRENAL GLANDS: Normal. KIDNEYS AND URETERS: The kidneys both enhance appropriately. There are normal size and shape. No hydronephrosis or nephrolithiasis. No renal masses or cysts. STOMACH: Small hiatal hernia. SMALL BOWEL: Multiple fluid-filled dilated small bowel loops. Findings suggestive of a circumferential wall thickening of the terminal ileum. MESENTERY: No mesenteric inflammation. No ascites. COLON: Sigmoid diverticulosis. The colon otherwise is normal. There is a large fatty ileocecal valve. APPENDIX: The appendix is visualized and normal. IVC: Normal. RETROPERITONEUM: No retroperitoneal lymphadenopathy. PELVIC STRUCTURES: Normal bladder. Small amount of fluid is seen in the pelvis. Metallic radiation seeds are seen within the prostate. SOFT TISSUES ABDOMEN: The anterior abdominal wall is normal. SOFT TISSUE CHEST: The extrathoracic soft tissues are normal. BONES: No fractures or significant degenerative disease. CT/CTA Chst, Abd, Pel W and/or WO IMPRESSION: Mildly distended fluid-filled small bowel loops with findings suggestive of a thickening of the wall of the distal/terminal ileum. Follow-up recommended. Small amount of perisplenic and perirenal hepatic fluid as well as fluid in the cul-de-sac. Sigmoid diverticulosis. Metallic radiation seeds are seen within the prostate. Normal contrast-enhanced CT of the chest. Normal contrast-enhanced CT of the abdomen and pelvis. Electronically Signed: John Gilmore MD at 13:38 EDT ,
[2023-10-29] MEDS: HYDROmorphone 0.5 MG/0.5 ML SYRINGE IV ×2 (12:46→14:31)
[2023-10-29] MEDS: Dicyclomine 10 MG Capsule PO (14:31)
--- NOTE | 2023-10-29 15:17 | NURSING ---
MED SURG [facility]
[2023-10-29] MEDS: SimETHICONE 80 MG Chewable Tablet PO (15:30)
[2023-10-29] MEDS: metroNIDAZOLE 500 MG/100 ML BAG 100 MG IV (15:30)
--- NOTE | 2023-10-29 15:53 | PCM.HP.STD ---
HPI - General HPI Narrative AFSHIN FARFAN, is a 68 M who presents [facility] Medical History Health care maintenance History of exposure to tuberculosis Hypertension Wears glasses Cancer Alcohol use Arthritis High cholesterol History of diverticulitis Former smoker Leg cramps History of echocardiogram Cardiology follow-up encounter Adenocarcinoma of prostate CVA (cerebral vascular accident) (08/22/18) Nonrheumatic aortic (valve) stenosis with insufficiency Visual disturbance Situational anxiety Secondary pulmonary arterial hypertension Osteoarthritis Lump of right breast Dilated aortic root Bicuspid aortic valve Premature ventricular contractions Thoracic aortic aneurysm Home Medications ?Medication ?Instructions ?Recorded ?Last Taken ?Type multivitamin 1 ea PO DAILY 08/22/18 08/22/18 06:00 History aspirin 81 mg chewable tablet 81 mg PO QHS 03/25/19 04/13/22 History atorvastatin 40 mg tablet See Rx Instructions .Route 04/16/23 Unknown Rx .COMPLEX #90 tabs losartan 25 mg tablet 25 mg PO DAILY #90 tabs 04/16/23 Unknown Rx metoprolol tartrate 25 mg tablet 12.5 mg (1/2 x 25 mg) PO BID #90 04/27/23 Unknown Rx tabs Allergy/AdvReac Type Severity Reaction Status Date / Time No Known Allergies Allergy Verified 10/29/23 11:45 Family History Mother Heart disease Breast cancer Cervical cancer Father , narrowing of aorta Heart disease Brother Anxiety Surgical History Hx of colonoscopy History of thoracic aortic aneurysm repair (08/14/18) History of left heart catheterization (08/12/18) H/O aortic valve replacement (08/14/18) H/O right breast biopsy (11/2017) History of orthopedic surgery Hx of knee surgery History of appendectomy Social History (Updated 10/29/23 @ 11:44 by Sara Crockett) household members: spouse housing: house Smoking Status: Former smoker Smokeless tobacco user: chewing tobacco how long ago did patient quit smoking: No tobacco for last 16 years. Never smoked cigarettes. alcohol intake: current alcohol intake frequency: a few times a month Alcohol type: beer substance use type: does not use caffeine: Yes Type: coffee Number of servings: 3 what type of physical activity do you participate in: walking, bicycling and weight training Vital Signs Vital Signs Vital Signs: 10/29/23 10:01 10/29/23 11:46 10/29/23 12:20 Temperature 98 F Temperature Source Oral Pulse Rate 56 L 74 91 Respiratory Rate 18 18 22 H Blood Pressure 134/57 H 169/68 H 150/119 H Blood Pressure Mean 82 101 129 Pulse Ox 98 97 98 Oxygen Delivery Method Room Air Room Air 10/29/23 13:00 10/29/23 14:00 10/29/23 15:00 Temperature Temperature Source Pulse Rate 89 81 71 Respiratory Rate 16 16 16 Blood Pressure 159/80 H 157/71 H 100/61 Blood Pressure Mean 106 99 74 Pulse Ox 97 Oxygen Delivery Method 10/29/23 15:35 Temperature 97.1 F L Temperature Source Pulse Rate 53 L Respiratory Rate 16 Blood Pressure 123/86 H Blood Pressure Mean 98 Pulse Ox 97 Oxygen Delivery Method Weight Weight: 66.224 kg Body Mass Index (BMI) 20.3 Results Lab / Micro Data 10/29/23 10:35 10/29/23 10:35 Labs: Laboratory Results - last 24 hr 10/29/23 10:35: WBC 8.9, RBC 4.42 L, Hgb 13.3, Hct 40.1, MCV 90.7, MCH 30.1, MCHC 33.2, RDW Std Deviation 42.4, RDW Coeff of Stephan 12.8, Plt Count 268, MPV 9.4, Immature Gran % (Auto) 0.300, Neut % (Auto) 76.6 H, Lymph % (Auto) 12.8 L, [place] % (Auto) 8.8, Eos % (Auto) 0.9, Baso % (Auto) 0.6, Absolute Neuts (auto) 6.8, Absolute Lymphs (auto) 1.14, Nucleated RBC % 0, Sodium 142, Potassium 4.6, Chloride 108 H, Carbon Dioxide 28.0, Anion Gap 6, BUN 17, Creatinine 0.94, Estim Creat Clear Calc 69.47, Est GFR (MDRD) Af Amer 102, Est GFR (MDRD) Non-Af 84, BUN/Creatinine Ratio 18.0, Glucose 117 H, Calcium 9.6, Total Bilirubin 0.50, AST 22, ALT 28, Alkaline Phosphatase 79, Total Protein 7.2, Albumin 3.8, Globulin 3.4, Albumin/Globulin Ratio 1.1 10/29/23 10:40: Urine Color Yellow, Urine Clarity Clear, Urine pH 7.0, Ur Specific [place] 1.015, Urine Protein 15 H, Urine Glucose (UA) Normal, Urine Ketones Negative, Urine Occult Blood 10 H, Urine Nitrite Negative, Urine Bilirubin Negative, Urine Urobilinogen Normal, Ur Leukocyte Esterase Negative, Urine RBC 0-5 SEEN, Urine WBC 0-5 SEEN, Ur Squamous Epith Cells 0-5 SEEN, Urine Bacteria RARE, Urine Mucus 2+ 10/29/23 10:45: Lipase 30 Imaging Radiology Impression Chest/Abdomen/Pelvis CTA 10/29/23 12:31 IMPRESSION: Mildly distended fluid-filled small bowel loops with findings suggestive of a thickening of the wall of the distal/terminal ileum. Follow-up recommended. Small amount of perisplenic and perirenal hepatic fluid as well as fluid in the cul-de-sac. Sigmoid diverticulosis. Metallic radiation seeds are seen within the prostate. Normal contrast-enhanced CT of the chest. Normal contrast-enhanced CT of the abdomen and pelvis. Electronically Signed: John Gilmore MD at 13:38 EDT , Assessment & Plan Assessment/Plan (1) Abdominal pain: PLAN: Plan #Abdominal pain- ileal thickening -Patient presented with sudden onset abdominal pain at 3 AM that woke him up -CT with mildly distended fluid-filled small bowel loops with findings suggestive of thickening of wall of distal/terminal ileum and small amount of perisplenic and perirenal hepatic fluid as well as fluid in the cul-de-sac -GI contacted in the ED and said it is possible could have been a microperforation recommended IV antibiotics and inpatient admission to assess for progress -Patient is more comfortable after receiving pain medicine in the ED -Continue Cipro/Flagyl -GI consult -IV fluids -Full liquid diet and advance as tolerated -Reviewed previous notes and patient had colonoscopy 04/18/2022 as he had a colonoscopy in 2014 with a small polyp which was ablated. Colonoscopy 04/19/2023 was normal # History of prostate cancer -With radioactive seeds -Patient reports following regularly and has had no recent problems or complications # History of bicuspid aortic valve status post replacement -Born with bicuspid aortic valve, several years ago had AV valve replacement with bovine valve # History of CVA -Left cerebellar infarct in 2019 -Continue aspirin and statin # Hypertension -Blood pressure 123/86 -Continue home medications Time spent in the patient's overall evaluation,decision-making process, review of diagnostic data, adjustment of management, discussion with other providers, nursing nursing and ancillary staff involved in patient's care documentation, 55 minutes Charges/Coding Visit Charges Inpatient E&M: 17474 Init Hosp L2
[2023-10-29] MEDS: Ciprofloxacin 400 MG/200 ML BAG 200 MG IV ×2 (15:55→21:21)
[2023-10-29 15:58] LABS: CRP 5.39 mg/L (0.0-3.0)
[2023-10-29 16:04] LABS: Erythrocyte Sedimentation Rate 4 mm/hr (0-20)
--- NOTE | 2023-10-29 16:18 | EDS_ITS ---
HPI HPI - GI History of Present Illness Chief Complaint: Abd Pain Informant: patient Narrative Narrative: Patient is 68-year-old male with history of cholecystectomy, prostate cancer, aortic valve replacement and stroke presenting with worsening abdominal pain and nausea. Patient states his daughter made dinner last night and he had a pretty heavy dinner. He did not think too much out of that it is full. Around 3 AM he woke with worsening epigastric abdominal pain. He started feel more bloated and having pain rating to his back. He tried to throw up but could not. He notes he had 2 beers last night but does not regularly drink. He is never felt like this before. Reports remote history of kidney stones. He came in for further evaluation. States prior to O2 last night he was in his normal state of health. Denies any chest pain or difficulty breathing. Denies any recent changes bowel movements. PFSH [facility] Medical History Health care maintenance History of exposure to tuberculosis Hypertension Wears glasses Cancer Alcohol use Arthritis High cholesterol History of diverticulitis Former smoker Leg cramps History of echocardiogram Cardiology follow-up encounter Adenocarcinoma of prostate CVA (cerebral vascular accident) (08/22/18) Nonrheumatic aortic (valve) stenosis with insufficiency Visual disturbance Situational anxiety Secondary pulmonary arterial hypertension Osteoarthritis Lump of right breast Dilated aortic root Bicuspid aortic valve Premature ventricular contractions Thoracic aortic aneurysm Home Medications ?Medication ?Instructions ?Recorded ?Last Taken ?Type multivitamin 1 ea PO DAILY 08/22/18 08/22/18 06:00 History aspirin 81 mg chewable tablet 81 mg PO QHS 03/25/19 04/13/22 History atorvastatin 40 mg tablet See Rx Instructions .Route 04/16/23 Unknown Rx .COMPLEX #90 tabs losartan 25 mg tablet 25 mg PO DAILY #90 tabs 04/16/23 Unknown Rx metoprolol tartrate 25 mg tablet 12.5 mg (1/2 x 25 mg) PO BID #90 04/27/23 Unknown Rx tabs Allergy/AdvReac Type Severity Reaction Status Date / Time No Known Allergies Allergy Verified 10/29/23 11:45 Family History Mother Heart disease Breast cancer Cervical cancer Father , narrowing of aorta Heart disease Brother Anxiety Surgical History Hx of colonoscopy History of thoracic aortic aneurysm repair (08/14/18) History of left heart catheterization (08/12/18) H/O aortic valve replacement (08/14/18) H/O right breast biopsy (11/2017) History of orthopedic surgery Hx of knee surgery History of appendectomy Social History household members: spouse housing: house Smoking Status: Former smoker Smokeless tobacco user: chewing tobacco how long ago did patient quit smoking: No tobacco for last 16 years. Never smoked cigarettes. alcohol intake: current alcohol intake frequency: a few times a month Alcohol type: beer substance use type: does not use caffeine: Yes Type: coffee Number of servings: 3 what type of physical activity do you participate in: walking, bicycling and weight training ROS ROS ED Constitutional Constitutional ED: Denies chills, fever(s) or sweats Cardiovascular Cardiovascular: Denies chest pain Respiratory/Chest Respiratory/Chest: Denies cough or dyspnea Gastrointestinal Gastrointestinal: Reports abdominal pain and nausea; Denies constipation, diarrhea, melena or vomiting Genitourinary Genitourinary ED: Denies dysuria or hematuria Musculoskeletal Musculoskeletal: Reports back pain; Denies arthralgias or myalgias Integumentary Denies rash Neurologic Neurologic: Denies paresthesias or weakness Psychiatric Psychiatric: Denies anxiety Hematologic/Lymphatic Hematologic/Lymphatic: Denies easy bleeding or easy bruising EXAM Physical Exam Const Vital Signs: 10/29/23 10:01 10/29/23 11:46 10/29/23 12:20 Temperature 98 F Temperature Source Oral Pulse Rate 56 L 74 91 Respiratory Rate 18 18 22 H Blood Pressure 134/57 H 169/68 H 150/119 H Blood Pressure Mean 82 101 129 Pulse Ox 98 97 98 Oxygen Delivery Method Room Air Room Air 10/29/23 13:00 10/29/23 14:00 10/29/23 15:00 Temperature Temperature Source Pulse Rate 89 81 71 Respiratory Rate 16 16 16 Blood Pressure 159/80 H 157/71 H 100/61 Blood Pressure Mean 106 99 74 Pulse Ox 97 Oxygen Delivery Method 10/29/23 15:35 Temperature 97.1 F L Temperature Source Pulse Rate 53 L Respiratory Rate 16 Blood Pressure 123/86 H Blood Pressure Mean 98 Pulse Ox 97 Oxygen Delivery Method Positive well nourished and well developed Constitutional Narrative: Patient quite uncomfortable appearing secondary to pain General Appearance ED: well developed HEENT Reports moist mucous membranes normocephalic Eyes PERRL Neck supple and no JVD Resp normal respiratory effort and clear to auscultation bilaterally Cardio regular rate and regular rhythm GI GI Narrative: No reproducible tender palpation but patient points to his epigastric region as where his pain is. No peritoneal signs. No pulsatile mass appreciated. No guarding. Back/Spine no CVA tenderness Extremity full ROM General Extremety ED: Negative for edema or tenderness General Extremity: Negative for edema Neuro moves all extremities Sensorium / Orientation: alert, oriented to person, oriented to place and oriented to time Motor Exam: Negative for general weakness Psych mental status grossly normal and thought process normal Skin no wounds General Skin Exam: Negative for jaundice MDM MDM MDM Narrative Medical decision making narrative: Patient is evaluated for abrupt onset upper abdominal pain that radiates to his back. Patient is quite uncomfortable. Vital signs are significant for mild elevation of his blood pressure but otherwise are largely normal. His pain is slightly had reports into his exam. Differential includes renal colic, pancreatitis, choledocholithiasis, colitis, small bowel obstruction and aortic dissection. Patient is given IV morphine, fluids and Zofran initially as well as IV Toradol. Initially had ordered a CT of the abdomen and pelvis looking for kidney stone but on further reflection given his degree of pain even after receiving morphine I switched it to a dissection study. Workup shows largely normal CBC, CMP, lipase and urinalysis. CTA of the chest abdomen pelvis shows mildly distended fluid-filled small bowel loops with finding suggestive of thickening of the wall of the distal/terminal ileum. There is a small amount of perisplenic and perirenal hepatic fluid as well as fluid in the cul-de-sac. No other acute pathology is noted. Patient requires multiple doses of Dilaudid for further pain control. Then also given Bentyl and simethicone. Case discussed with SUDHIR Cochran on-call. Given that he does have free fluid in the abdomen his concern is that he might have a microperforation it does think patient benefit from IV antibiotics. He also request to order CRP and ESR for trending. This is ordered. Patient is agreeable this plan of care. Patient is admitted to the medicine service and case discussed with Dr. Benitez. Lab Data Attestation: I reviewed the patient's lab results. Labs: Laboratory Results - last 24 hr 10/29/23 10/29/23 10/29/23 10:35 10:40 10:45 WBC 8.9 RBC 4.42 L Hgb 13.3 Hct 40.1 MCV 90.7 MCH 30.1 MCHC 33.2 RDW Std Deviation 42.4 RDW Coeff of Stephan 12.8 Plt Count 268 MPV 9.4 Immature Gran % (Auto) 0.300 Neut % (Auto) 76.6 H Lymph % (Auto) 12.8 L [place] % (Auto) 8.8 Eos % (Auto) 0.9 Baso % (Auto) 0.6 Absolute Neuts (auto) 6.8 Absolute Lymphs (auto) 1.14 Nucleated RBC % 0 ESR 4 Sodium 142 Potassium 4.6 Chloride 108 H Carbon Dioxide 28.0 Anion Gap 6 BUN 17 Creatinine 0.94 Estim Creat Clear Calc 69.47 Est GFR (MDRD) Af Amer 102 Est GFR (MDRD) Non-Af 84 BUN/Creatinine Ratio 18.0 Glucose 117 H Calcium 9.6 Total Bilirubin 0.50 AST 22 ALT 28 Alkaline Phosphatase 79 C-React Prot Ext Range 5.39 H Total Protein 7.2 Albumin 3.8 Globulin 3.4 Albumin/Globulin Ratio 1.1 Lipase 30 Urine Color Yellow Urine Clarity Clear Urine pH 7.0 Ur Specific [place] 1.015 Urine Protein 15 H Urine Glucose (UA) Normal Urine Ketones Negative Urine Occult Blood 10 H Urine Nitrite Negative Urine Bilirubin Negative Urine Urobilinogen Normal Ur Leukocyte Esterase Negative Urine RBC 0-5 SEEN Urine WBC 0-5 SEEN Ur Squamous Epith Cells 0-5 SEEN Urine Bacteria RARE Urine Mucus 2+ Radiography Diagnostic Testing: Clinical Impression(s) from Imaging Studies Chest/Abdomen/Pelvis CTA 10/29/23 12:31 IMPRESSION: Mildly distended fluid-filled small bowel loops with findings suggestive of a thickening of the wall of the distal/terminal ileum. Follow-up recommended. Small amount of perisplenic and perirenal hepatic fluid as well as fluid in the cul-de-sac. Sigmoid diverticulosis. Metallic radiation seeds are seen within the prostate. Normal contrast-enhanced CT of the chest. Normal contrast-enhanced CT of the abdomen and pelvis. Electronically Signed: John Gilmore MD at 13:38 EDT , Management Discussion w/another healthcare provider: Hospitalist and Client Customer Manager Discharge Plan Triage Chief Complaint: Abd Pain ED Provider: Ariadna Garcia Dx/Rx/DC Orders Clinical Impression: Acute colitis, Abdominal pain, acute, epigastric, Nausea Prescriptions: No Action aspirin 81 mg tablet,chewable 81 mg PO QHS Patient Comments: blood thinner multivitamin 1 EACH tablet 1 ea PO DAILY atorvastatin 40 mg tablet See Rx Instructions .ROUTE .COMPLEX Qty: 90 3RF Dose Instruction: TAKE 1 TABLET AT BEDTIME Rx Instructions: TAKE 1 TABLET AT BEDTIME losartan 25 mg tablet 25 mg PO DAILY Qty: 90 3RF metoprolol tartrate 25 mg tablet 12.5 mg PO BID Qty: 90 3RF Primary Care Provider: Araceli Lee Referrals: Araceli Lee MD [Primary Care Provider] - Print Language: Croatian Disposition Disposition: Acute Care Hospital [facility]
[2023-10-29] MEDS: Morphine 2 MG/ML Syringe IV ×2 (17:24→21:20)
[2023-10-29] MEDS: 0.9% Normal Saline (1000mL) 1,000 ML 100 ML IV (17:25)
[2023-10-29 19:18] LABS: Erythrocyte Sedimentation Rate 4 mm/hr (0-20)
[2023-10-29] MEDS: Aspirin 81 MG TAB.CHEW PO (21:20)
[2023-10-29] MEDS: Atorvastatin Calcium 40 MG Tablet PO (21:20)
[2023-10-30] VITALS (7 sets, daily range): BP systolic 111–157; BP diastolic 59–81; PULSE 47–76; RESP 15–16; TEMP 36.5–36.7; O2SAT 97–99
[2023-10-30] MEDS: metroNIDAZOLE 500 MG/100 ML BAG 100 MG IV ×4 (00:36→21:38)
[2023-10-30] MEDS: oxyCODONE 5 MG Tablet PO (00:41)
[2023-10-30] MEDS: 0.9% Normal Saline (1000mL) 1,000 ML 100 ML IV ×2 (04:24→15:22)
[2023-10-30] MEDS: Acetaminophen 325 MG Tablet 650 MG PO (04:24)
[2023-10-30 07:42] LABS: Absolute Neutrophil Count 6.9 X10^3/uL (2.0-7.7); Basophil# 0.05 X10^3/uL; Basophil% 0.5 % (0-1); Eosinophil# 0.16 X10^3/uL; Eosinophils% 1.7 % (0-5); Hematocrit 36.3 % (40-54); Hemoglobin 11.9 g/dL (13.0-16.5); Lymphocyte % 14.6 % (19-41); Mean Corp Hgb Conc 32.8 g/dL (32-36); Mean Corpuscular Hgb 30.1 pg (27.0-32.0); Mean Corpuscular Volume 91.7 fL (80-94); Mean Platelet Vol. 9.6 fl (6.2-12.0); Monocyte# 1.03 X10^3/uL; Monocyte% 10.8 % (0-10); NRBC Flagged by Analyzer 0 % (0-5); Platelet Count 236 K/mm3 (150-450); RBC Distribution Width CV 13.2 % (11.6-14.6); Red Blood Count 3.96 M/mm3 (4.6-6.2); White Blood Count 9.6 K/mm3 (4.4-11.0)
[2023-10-30] MEDS: Morphine 2 MG/ML Syringe IV ×4 (07:44→20:25)
[2023-10-30 07:50] LABS: ALB/GLOB Ratio 1.1 RATIO (0.9-2.4); AST(SGOT) 20 U/L (15-37); Alanine Aminotransfer ALT/SGPT 19 U/L (16-61); Albumin, Serum 2.8 g/dL (3.2-5.0); Alkaline Phosphatase 57 U/L (45-117); Anion Gap 1 (5-15); BUN 15 mg/dL (7-18); BUN/Creat Ratio 16.9 RATIO (10-20); Calcium,Total 8.5 mg/dL (8.5-10.1); Chloride 110 mmol/L (98-107); Creatinine, Serum 0.89 mg/dL (0.70-1.30); EST Glomerular Filtration Rate 90 mL/min (>60); Est Glom Filt Rate - Afr Amer 109 mL/min (>60); Estimated Creatinine Clearance 75.59 ml/min; Globulin 2.6 g/dL (2.2-4.2); Glucose 104 mg/dL (74-106); Magnesium 1.7 mg/dL (1.6-2.6); Protein, Total 5.4 g/dL (6.4-8.2); Sodium Level 139 mmol/L (136-145)
[2023-10-30] MEDS: Ondansetron 4 MG/2 ML Vial IV ×2 (07:50→20:36)
--- NOTE | 2023-10-30 08:18 | PCM.PN.HOSP ---
Reason for Visit Reason for Visit: Diagnoses Unspecified abdominal pain (10/29/23) Subjective Subjective Still with abdominal pain but feeling better. Began acutely. Never had a thing like this before. Objective Data Objective Data Vital Signs: Vital Signs Temp Pulse Resp BP Pulse Ox O2 Del Method 36.5 C L 48 L 15 111/59 L 99 Room Air 10/30/23 04:03 10/30/23 04:03 10/30/23 04:03 10/30/23 04:03 10/30/23 04:03 10/30/23 04:03 Oxygen Delivery Method Room Air Weight: 68.22 kg Body Mass Index (BMI) 20.9 Intake & Output: Intake and Output for Last 24 Hours 10/28/23 10/29/23 10/30/23 23:59 23:59 23:59 Intake Total 1900 / 1900 1100 / 1100 Balance 1900 / 1900 1100 / 1100 Lab / Micro Data 10/30/23 06:40 10/30/23 06:40 Labs: Laboratory Results - last 24 hr 10/29/23 10:35: WBC 8.9, RBC 4.42 L, Hgb 13.3, Hct 40.1, MCV 90.7, MCH 30.1, MCHC 33.2, RDW Std Deviation 42.4, RDW Coeff of Stephan 12.8, Plt Count 268, MPV 9.4, Immature Gran % (Auto) 0.300, Neut % (Auto) 76.6 H, Lymph % (Auto) 12.8 L, Jennings % (Auto) 8.8, Eos % (Auto) 0.9, Baso % (Auto) 0.6, Absolute Neuts (auto) 6.8, Absolute Lymphs (auto) 1.14, Nucleated RBC % 0, ESR 4 10/29/23 10:35: ESR 4, Sodium 142, Potassium 4.6, Chloride 108 H, Carbon Dioxide 28.0, Anion Gap 6, BUN 17, Creatinine 0.94, Estim Creat Clear Calc 69.47, Est GFR (MDRD) Af Amer 102, Est GFR (MDRD) Non-Af 84, BUN/Creatinine Ratio 18.0, Glucose 117 H, Calcium 9.6, Total Bilirubin 0.50, AST 22, ALT 28, Alkaline Phosphatase 79, C-React Prot Ext Range Cancelled 10/29/23 10:35: C-React Prot Ext Range 5.39 H, Total Protein 7.2, Albumin 3.8, Globulin 3.4, Albumin/Globulin Ratio 1.1 10/29/23 10:40: Urine Color Yellow, Urine Clarity Clear, Urine pH 7.0, Ur Specific Avis 1.015, Urine Protein 15 H, Urine Glucose (UA) Normal, Urine Ketones Negative, Urine Occult Blood 10 H, Urine Nitrite Negative, Urine Bilirubin Negative, Urine Urobilinogen Normal, Ur Leukocyte Esterase Negative, Urine RBC 0-5 SEEN, Urine WBC 0-5 SEEN, Ur Squamous Epith Cells 0-5 SEEN, Urine Bacteria RARE, Urine Mucus 2+ 10/29/23 10:45: Lipase 30 10/30/23 06:40: WBC 9.6, RBC 3.96 L, Hgb 11.9 L, Hct 36.3 L, MCV 91.7, MCH 30.1, MCHC 32.8, RDW Std Deviation 44.0 H, RDW Coeff of Stephan 13.2, Plt Count 236, MPV 9.6, Immature Gran % (Auto) 0.400, Neut % (Auto) 72.0 H, Lymph % (Auto) 14.6 L, Jennings % (Auto) 10.8 H, Eos % (Auto) 1.7, Baso % (Auto) 0.5, Absolute Neuts (auto) 6.9, Absolute Lymphs (auto) 1.40, Nucleated RBC % 0, Sodium 139, Potassium 4.0, Chloride 110 H, Carbon Dioxide 28.0, Anion Gap 1 L, BUN 15, Creatinine 0.89, Estim Creat Clear Calc 75.59, Est GFR (MDRD) Af Amer 109, Est GFR (MDRD) Non-Af 90, BUN/Creatinine Ratio 16.9, Glucose 104, Calcium 8.5, Magnesium 1.7, Total Bilirubin 0.50, AST 20, ALT 19, Alkaline Phosphatase 57, Total Protein 5.4 L, Albumin 2.8 L, Globulin 2.6, Albumin/Globulin Ratio 1.1 Radiography Diagnostic Testing: Radiology Impression Chest/Abdomen/Pelvis CTA 10/29/23 12:31 IMPRESSION: Mildly distended fluid-filled small bowel loops with findings suggestive of a thickening of the wall of the distal/terminal ileum. Follow-up recommended. Small amount of perisplenic and perirenal hepatic fluid as well as fluid in the cul-de-sac. Sigmoid diverticulosis. Metallic radiation seeds are seen within the prostate. Normal contrast-enhanced CT of the chest. Normal contrast-enhanced CT of the abdomen and pelvis. Electronically Signed: John Gilmore MD at 13:38 EDT , Physical Exam Const alert and no apparent distress HEENT head/scalp atraumatic and moist oral mucous membranes Resp normal respiratory effort, no retractions, no use of accessory muscles and clear to auscultation bilaterally Cardio regular rate, regular rhythm, S1 normal heart sound and S2 normal heart sound GI normal to inspection, nondistended, normoactive bowel sounds, soft to palpation and non-distended GI Narrative: Mild abdominal tenderness without rebound Neuro Sensorium / Orientation: awake and alert Assessment & Plan Assessment/Plan (1) Abdominal pain: PLAN: Plan Terminal ileum swelling Subjectively better today. Infectious versus inflammatory versus ischemic. Seems less likely to be inflammatory as patient is never had any issues like this before. On ciprofloxacin and metronidazole GI consult. IVF. Full liquid diet. Chronic conditions: History of prostate cancer-With radioactive seeds-Patient reports following regularly and has had no recent problems or complications History of bicuspid aortic valve status post replacement-Born with bicuspid aortic valve, several years ago had AV valve replacement with bovine valve History of CVA-Left cerebellar infarct in 2019-Continue aspirin and statin Hypertension-Blood pressure 123/86-Continue losartan, metoprolol VTE prophylaxis: enoxaparin. Charges/Coding Visit Charges Inpatient E&M: 67515 Subs Hosp L2
[2023-10-30] MEDS: Ciprofloxacin 400 MG/200 ML BAG 200 MG IV ×2 (10:12→20:32)
[2023-10-30] MEDS: Losartan Potassium 25 MG Tablet PO (10:15)
[2023-10-30] MEDS: Metoprolol Tartrate 25 MG Tablet 12.5 MG PO ×2 (10:15→22:22)
[2023-10-30] MEDS: Enoxaparin 40 MG/0.4 ML Syringe SC (10:17)
--- NOTE | 2023-10-30 14:40 | CASEMGMT ---
TAYLOR PEPE Assessment: Face to Face with pt for initial transition planning/care coordination assessment. RN AFSHIN introduced self and role at [facility], pt voices understanding and consents to assessment. Pt is A&O x4 and answers all questions appropriately at this time. Pt sitting on edge of bed in no distress. Care providers, pharmacy, and demographics verified/updated. Admitting Dx:terminal ileum swelling Strata Score: 2 PCP:Rosa Specialists:Brant, cardio; cannot recall [facility] specialists Preferred Pharm[facility]: [facility]: yes LNOK: Suzy Aponte, Living Arrangements: Pt lives with in a single story home with 3 steps to enter. Pt reports he is I in ADLs and denies concerns at home. Transportation: Pt drives self and denies concerns with transportation. DME:Denies HHC/SNF:Denies hx of Pt states no concerns with going home at time of dc. Pt states no further concerns/needs. CM to follow. Advised pt to ask CM if any further question/concerns/needs arise, voices understanding. Pt Goal: Home Plan: Home Naeem VAZQUEZ CM
[2023-10-30] MEDS: Aspirin 81 MG TAB.CHEW PO (22:23)
[2023-10-30] MEDS: Atorvastatin Calcium 40 MG Tablet PO (22:23)
[2023-10-31] MEDS: 0.9% Normal Saline (1000mL) 1,000 ML 100 ML IV ×2 (03:00→11:49)
[2023-10-31 03:21] VITALS: BP 105/68; PULSE 67; RESP 17; TEMP 36.8; O2SAT 94
[2023-10-31] MEDS: metroNIDAZOLE 500 MG/100 ML BAG 100 MG IV ×2 (05:15→13:37)
[2023-10-31 07:10] LABS: Absolute Lymphocyte Count 0.91 X10^3/uL (0.83-4.51); Absolute Neutrophil Count 7.4 X10^3/uL (2.0-7.7); Basophil# 0.04 X10^3/uL; Basophil% 0.4 % (0-1); Eosinophil# 0.14 X10^3/uL; Eosinophils% 1.4 % (0-5); Hematocrit 36.3 % (40-54); Hemoglobin 11.9 g/dL (13.0-16.5); Lymphocyte # 0.91 X10^3/ul (0.83-4.51); Lymphocyte % 9.3 % (19-41); Mean Corp Hgb Conc 32.8 g/dL (32-36); Mean Corpuscular Hgb 29.9 pg (27.0-32.0); Mean Corpuscular Volume 91.2 fL (80-94); Mean Platelet Vol. 9.5 fl (6.2-12.0); Monocyte# 1.18 X10^3/uL; Monocyte% 12.1 % (0-10); NRBC Flagged by Analyzer 0 % (0-5); Neutrophil # 7.44 X10^3/uL (2.7-7.7); Neutrophil % 76.5 % (47-70); Platelet Count 236 K/mm3 (150-450); Red Blood Count 3.98 M/mm3 (4.6-6.2); White Blood Count 9.7 K/mm3 (4.4-11.0)
[2023-10-31 07:52] LABS: Anion Gap 2 (5-15); BUN 11 mg/dL (7-18); BUN/Creat Ratio 14.4 RATIO (10-20); Chloride 112 mmol/L (98-107); Creatinine, Serum 0.77 mg/dL (0.70-1.30); EST Glomerular Filtration Rate 107 mL/min (>60); Est Glom Filt Rate - Afr Amer 129 mL/min (>60); Estimated Creatinine Clearance 84.09 ml/min; Glucose 108 mg/dL (74-106); Potassium 4.1 mmol/L (3.5-5.1); Sodium Level 140 mmol/L (136-145)
[2023-10-31 08:10] VITALS: BP 112/67; PULSE 72; RESP 16; TEMP 36.6; O2SAT 96
[2023-10-31 08:19] VITALS: BP 112/67; PULSE 77
[2023-10-31] MEDS: Metoprolol Tartrate 25 MG Tablet 12.5 MG PO (08:19)
[2023-10-31] MEDS: Losartan Potassium 25 MG Tablet PO (08:19)
[2023-10-31] MEDS: Acetaminophen 325 MG Tablet 650 MG PO (08:21)
[2023-10-31] MEDS: Enoxaparin 40 MG/0.4 ML Syringe SC (08:21)
--- NOTE | 2023-10-31 08:38 | PN.HOSP_ITS ---
Reason for Visit Reason for Visit: Diagnoses Unspecified abdominal pain (10/29/23) Subjective Subjective Feeling better. Tolerating diet. Objective Data Objective Data Vital Signs: Vital Signs Temp Pulse Resp BP Pulse Ox O2 Del Method 36.6 C 77 16 112/67 96 Room Air 10/31/23 08:10 10/31/23 08:19 10/31/23 08:10 10/31/23 08:19 10/31/23 08:10 10/31/23 08:10 Oxygen Delivery Method Room Air Weight: 68.22 kg Body Mass Index (BMI) 20.9 Intake & Output: Intake and Output for Last 24 Hours 10/29/23 10/30/23 10/31/23 23:59 23:59 23:59 Intake Total 1900 / 1900 3175.00 / 3175.00 1160 / 1160 Output Total 200 / 200 200 / 200 Balance 1900 / 1900 2975.00 / 2975.00 960 / 960 Lab / Micro Data 10/31/23 06:16 10/31/23 06:16 Labs: Laboratory Results - last 24 hr 10/31/23 06:16: WBC 9.7, RBC 3.98 L, Hgb 11.9 L, Hct 36.3 L, MCV 91.2, MCH 29.9, MCHC 32.8, RDW Std Deviation 43.0, RDW Coeff of Stephan 13.0, Plt Count 236, MPV 9.5, Immature Gran % (Auto) 0.300, Neut % (Auto) 76.5 H, Lymph % (Auto) 9.3 L, M ulises % (Auto) 12.1 H, Eos % (Auto) 1.4, Baso % (Auto) 0.4, Absolute Neuts (auto) 7.4, Absolute Lymphs (auto) 0.91, Nucleated RBC % 0, Sodium 140, Potassium 4.1, Chloride 112 H, Carbon Dioxide 26.0, Anion Gap 2 L, BUN 11, Creatinine 0.77, Estim Creat Clear Calc 84.09, Est GFR (MDRD) Af Amer 129, Est GFR (MDRD) Non-Af 107, BUN/Creatinine Ratio 14.4, Glucose 108 H, Calcium 8.0 L Physical Exam Const alert and no apparent distress Resp normal respiratory effort, no retractions, no use of accessory muscles and clear to auscultation bilaterally Cardio regular rate, regular rhythm, S1 normal heart sound and S2 normal heart sound GI normal to inspection, nondistended, normoactive bowel sounds and soft to palpation Assessment & Plan Assessment/Plan (1) Abdominal pain: PLAN: Plan Terminal ileum swelling * Subjectively better today. Infectious versus inflammatory versus ischemic. OMEGA Atkinson Friend, concerning that this could be Crohn's disease. Recommends continued abx and follow up. * On ciprofloxacin and metronidazole, continue upon discharge with slow advance of diet. * GI consult. IVF. Full liquid diet. Chronic conditions: * History of prostate cancer-With radioactive seeds-Patient reports following regularly and has had no recent problems or complications * History of bicuspid aortic valve status post replacement-Born with bicuspid aortic valve, several years ago had AV valve replacement with bovine valve * History of CVA-Left cerebellar infarct in 2019-Continue aspirin and statin * Hypertension-Blood pressure 123/86-Continue losartan, metoprolol VTE prophylaxis: enoxaparin.
[2023-10-31] MEDS: Ciprofloxacin 400 MG/200 ML BAG 200 MG IV (09:57)
--- NOTE | 2023-10-31 13:04 | DS.PCM_ITS ---
Providers Date of Admission: 10/29/23 Primary Care Physician: Dr. Araceli Lee MD Consultations 10/29/23 16:58 Consult: Gastroenterology Routine Consulting Provider: Richardson Miguel Reason for Consult: ileal thickening and fluid in culdesac EMERGENT Consult: No MD Notified: Yes Date Notified: 10/29/23 Time Notified: 16:01 Method of Notification: ED Physician Initiated Reason For Visit: TERMINAL ILEUM SWELLING Diagnosis Discharge Diagnosis (1) Abdominal pain: Status: Acute Code(s): R10.9 - Unspecified abdominal pain Plan Terminal ileum swelling * Subjectively better today. Infectious versus inflammatory versus ischemic. DW Dr. Miguel, concerning that this could be Crohn's disease. Recommends continued abx and follow up. * On ciprofloxacin and metronidazole, continue upon discharge with slow advance of diet. * GI consult. IVF. Full liquid diet. Chronic conditions: * History of prostate cancer-With radioactive seeds-Patient reports following regularly and has had no recent problems or complications * History of bicuspid aortic valve status post replacement-Born with bicuspid aortic valve, several years ago had AV valve replacement with bovine valve * History of CVA-Left cerebellar infarct in 2019-Continue aspirin and statin * Hypertension-Blood pressure 123/86-Continue losartan, metoprolol VTE prophylaxis: enoxaparin. Medications at Discharge Home Medications multivitamin 1 ea PO DAILY 08/22/18 aspirin 81 mg chewable tablet 81 mg PO QHS 03/25/19 atorvastatin 40 mg tablet See Rx Instructions .Route .COMPLEX #90 tabs 04/16/23 losartan 25 mg tablet 25 mg PO DAILY #90 tabs 04/16/23 metoprolol tartrate 25 mg tablet 12.5 mg (1/2 x 25 mg) PO BID #90 tabs 04/27/23 ciprofloxacin HCl 500 mg tablet 500 mg PO BID #10 tabs 10/31/23 metronidazole 500 mg tablet 500 mg PO Q8H #15 tabs 10/31/23 Hospital Course Operations None Procedures None Summary of Care Provided Hospital Course: 68-year-old male presents with acute onset abdominal pain. CAT scan showed terminal ileum swelling. Patient was started on ciprofloxacin and metronidazole. Patient has improved over the past couple days. Discussed with Dr. Miguel, gastroenterology, feels that this may be Crohn's even though the patient has never had this before. He recommends continue with antibiotics and follow-up as outpatient. Weight / BMI Weight Weight: 68.22 kg Body Mass Index (BMI) 20.9 ABG / Lab / Microbiology Data 10/31/23 06:16 10/31/23 06:16 Laboratory: Laboratory Results - last 24 hr 10/31/23 06:16: WBC 9.7, RBC 3.98 L, Hgb 11.9 L, Hct 36.3 L, MCV 91.2, MCH 29.9, MCHC 32.8, RDW Std Deviation 43.0, RDW Coeff of Stephan 13.0, Plt Count 236, MPV 9.5, Immature Gran % (Auto) 0.300, Neut % (Auto) 76.5 H, Lymph % (Auto) 9.3 L, M ulises % (Auto) 12.1 H, Eos % (Auto) 1.4, Baso % (Auto) 0.4, Absolute Neuts (auto) 7.4, Absolute Lymphs (auto) 0.91, Nucleated RBC % 0, Sodium 140, Potassium 4.1, Chloride 112 H, Carbon Dioxide 26.0, Anion Gap 2 L, BUN 11, Creatinine 0.77, Estim Creat Clear Calc 84.09, Est GFR (MDRD) Af Amer 129, Est GFR (MDRD) Non-Af 107, BUN/Creatinine Ratio 14.4, Glucose 108 H, Calcium 8.0 L D/C Instructions Discharge Diet: - ([place] soft diet, advance as tolerated over the next several days) Meaningful Use Info Meaningful Use Meaningful Use Diagnoses (Choose all that apply): None applicable Ischemic Stroke Statin Dosing Therapy Reference: STATIN DOSE THERAPY REFERENCE: * Patients > 75 years receive moderate or high dose statin therapy. * Patients 75 years or YOUNGER should receive HIGH intensity statin dose unless contraindicated. You will be required to document reason for non-treatment if statin daily dose does not meet guidelines. HIGH DOSE STATIN THERAPY DAILY Atorvastatin > than or = to 40 mg Rosuvastatin > than or = to 20 mg Amlodipine + Atorvastatin > than or = to 2.5/40 mg Ezetimibe + Simvastatin 10/80 mg Simvastatin 80mg Discharge Plan Admission Admit Date/Time: 10/29/23 15:53 Primary Reason for Your Visit: Abdominal pain secondary to 2 terminal ileal swelling. Attending Provider: Jose Antonio Gar Primary Care Provider: Araceli Lee Consulting Providers: Meredith Benitez; Richardson Miguel Instructions Additional Instructions / Restrictions: You had abdominal pain secondary to swelling of your terminal ileum. Dr. Miguel thinks that this may be related with Crohn's disease. You will be on antibiotics, please complete those. And also follow-up with gastroenterology for follow-up. If you do have worsening abdominal pain in the future, notify your physician or return to the emergency room. Discharge Orders/Prescriptions Prescriptions: New ciprofloxacin HCl 500 mg tablet 500 mg PO BID Qty: 10 0RF metronidazole 500 mg tablet 500 mg PO Q8H Qty: 15 0RF Continued aspirin 81 mg tablet,chewable 81 mg PO QHS Patient Comments: blood thinner multivitamin 1 EACH tablet 1 ea PO DAILY atorvastatin 40 mg tablet See Rx Instructions .ROUTE .COMPLEX Qty: 90 3RF Dose Instruction: TAKE 1 TABLET AT BEDTIME Rx Instructions: TAKE 1 TABLET AT BEDTIME losartan 25 mg tablet 25 mg PO DAILY Qty: 90 3RF metoprolol tartrate 25 mg tablet 12.5 mg PO BID Qty: 90 3RF Referrals / Follow Up: Araceli Lee MD [Primary Care Provider] - Within 2 Weeks Richardson Miguel DO [Med Staff - Active Staff] - Within 1 Month Disposition Disposition (needs filled in before D/C Order can be placed): Home, Self Care Charges/Coding Visit Charges Inpatient E&M: 93088 Disch Hosp
[2023-10-31 14:00] VITALS: BP 118/72; PULSE 66; RESP 16; TEMP 36.3; O2SAT 97
[2023-10-31 15:04] LABS: Lactic Acid 1.4 mmol/L (0.4-1.9)
[2023-10-31 16:04] LABS: Erythrocyte Sedimentation Rate 2 mm/hr (0-20)
[2023-10-31 16:34] LABS: LDH 312 U/L (87-241)
--- NOTE | 2023-10-31 19:01 | CON.PCM.GI_ITS ---
HPI Consult Data Date of Consult: 10/31/23 HPI Narrative Reason for Consultation: Abdominal pain HPI Narrative: AFSHIN FARFAN, is a 68 M who presented to the ED with abdominal pain . He has a history of cholecystectomy, prostate cancer, aortic valve replacement and stroke presenting with worsening abdominal pain and nausea. Patient states his daughter made dinner last night and he had a pretty heavy dinner. He did not think too much out of that it is full. Around 3 AM he woke with worsening epigastric abdominal pain. He started feel more bloated and having pain rating to his back. He tried to throw up but could not. He notes he had 2 beers last night but does not regularly drink. He is never felt like this before. Reports remote history of kidney stones. He came in for further evaluation. States prior to O2 last night he was in his normal state of health. Denies any chest pain or difficulty breathing. Denies any recent changes bowel movements. CT scan abdomen pelvis that showed inflammation in the terminal ileum along with some fluid in the abdomen. He was noted to have a mild increase in white blood cell count and inflammatory markers. I was consulted and requested that he get started on antibiotics for possible Crohn's disease with microperforation. [facility] Medical History Health care maintenance History of exposure to tuberculosis Hypertension Wears glasses Cancer Alcohol use Arthritis High cholesterol History of diverticulitis Former smoker Leg cramps History of echocardiogram Cardiology follow-up encounter Adenocarcinoma of prostate CVA (cerebral vascular accident) (08/22/18) Nonrheumatic aortic (valve) stenosis with insufficiency Visual disturbance Situational anxiety Secondary pulmonary arterial hypertension Osteoarthritis Lump of right breast Dilated aortic root Bicuspid aortic valve Premature ventricular contractions Thoracic aortic aneurysm Home Medications ?Medication ?Instructions ?Recorded ?Last Taken ?Type multivitamin 1 ea PO DAILY 08/22/18 08/22/18 06:00 History aspirin 81 mg chewable tablet 81 mg PO QHS 03/25/19 04/13/22 History atorvastatin 40 mg tablet See Rx Instructions .Route 04/16/23 Unknown Rx .COMPLEX #90 tabs losartan 25 mg tablet 25 mg PO DAILY #90 tabs 04/16/23 Unknown Rx metoprolol tartrate 25 mg tablet 12.5 mg (1/2 x 25 mg) PO BID #90 04/27/23 Unknown Rx tabs ciprofloxacin HCl 500 mg tablet 500 mg PO BID #10 tabs 10/31/23 Unknown Rx metronidazole 500 mg tablet 500 mg PO Q8H #15 tabs 10/31/23 Unknown Rx Allergy/AdvReac Type Severity Reaction Status Date / Time No Known Allergies Allergy Verified 10/29/23 11:45 Family History Mother Heart disease Breast cancer Cervical cancer Father , narrowing of aorta Heart disease Brother Anxiety Surgical History Hx of colonoscopy History of thoracic aortic aneurysm repair (08/14/18) History of left heart catheterization (08/12/18) H/O aortic valve replacement (08/14/18) H/O right breast biopsy (11/2017) History of orthopedic surgery Hx of knee surgery History of appendectomy Social History household members: spouse housing: house Smoking Status: Former smoker Smokeless tobacco user: chewing tobacco how long ago did patient quit smoking: No tobacco for last 16 years. Never smoked cigarettes. alcohol intake: current alcohol intake frequency: a few times a month Alcohol type: beer substance use type: does not use caffeine: Yes Type: coffee Number of servings: 3 what type of physical activity do you participate in: walking, bicycling and weight training ROS Review of Systems ROS Unobtainable: other Constitutional Constitutional: Denies fatigue, fever(s), poor appetite, weight gain or weight loss ENT HEENT: Denies mouth lesions Cardiovascular Cardiovascular: Denies abdominal bloating, abdominal edema or abdominal pain Respiratory/Chest Respiratory/Chest: Denies change in mental status, change in phlegm color, chest congestion or chest tightness Gastrointestinal Gastrointestinal: Denies belching, bloating, change in bowel habits, change in stool character, chewing difficulty, coffee ground emesis, constipation, cramping, diarrhea, dyspepsia, dysphagia, early satiety, excessive flatus, fecal incontinence, heartburn, hematemesis, hematochezia, hemorrhoids, loose stools, melena, nausea, odynophagia, rectal bleeding, tenesmus, vomiting or weight changes Genitourinary Genitourinary: Denies abdominal discomfort, burning urination or itching Musculoskeletal Musculoskeletal: Reports as per HPI; Denies muscle weakness or myalgias Integumentary Integumentary: Denies jaundice Neurologic Neurologic: Denies lack of coordination or weakness Psychiatric Psychiatric: Denies confusion, depression, memory loss, mood swings, paranoia or suicidal ideation Endocrine Endocrinology: Denies systems reviewed and no addt'l complaints, except as documented Hematologic/Lymphatic Hematologic/Lymphatic: Denies anemia, easy bleeding, easy bruising or lymphadenopathy Allergic/Immunologic Allergic/Immunologic: Denies systems reviewed and no addt'l complaints, except as documented Physical Exam Const alert and no apparent distress Resp normal respiratory effort, no retractions, no use of accessory muscles and clear to auscultation bilaterally Cardio regular rate, regular rhythm, S1 normal heart sound and S2 normal heart sound GI normal to inspection, nondistended, normoactive bowel sounds and soft to palpation Lab / Micro Data 10/31/23 06:16 10/31/23 06:16 Labs: Laboratory Results - last 24 hr 10/31/23 06:16: WBC 9.7, RBC 3.98 L, Hgb 11.9 L, Hct 36.3 L, MCV 91.2, MCH 29.9, MCHC 32.8, RDW Std Deviation 43.0, RDW Coeff of Stephan 13.0, Plt Count 236, MPV 9.5, Immature Gran % (Auto) 0.300, Neut % (Auto) 76.5 H, Lymph % (Auto) 9.3 L, M ulises % (Auto) 12.1 H, Eos % (Auto) 1.4, Baso % (Auto) 0.4, Absolute Neuts (auto) 7.4, Absolute Lymphs (auto) 0.91, Nucleated RBC % 0, ESR 2, Sodium 140, Potassium 4.1, Chloride 112 H, Carbon Dioxide 26.0, Anion Gap 2 L, BUN 11, Creatinine 0.77, Estim Creat Clear Calc 84.09, Est GFR (MDRD) Af Amer 129, Est GFR (MDRD) Non-Af 107, BUN/Creatinine Ratio 14.4, Glucose 108 H, Calcium 8.0 L 10/31/23 14:15: Lactic Acid 1.4 10/31/23 15:47: Lactate Dehydrogenase 312 H, C-React Prot Ext Range 33.90 H Assessment & Plan Assessment/Plan (1) Abdominal pain: PLAN: Plan #Abdominal pain- ileal thickening -Patient presented with sudden onset abdominal pain at 3 AM that woke him up -CT with mildly distended fluid-filled small bowel loops with findings suggestive of thickening of wall of distal/terminal ileum and small amount of perisplenic and perirenal hepatic fluid as well as fluid in the cul-de-sac -I suspect that could have been a microperforation recommended IV antibiotics and inpatient admission to assess for progress -Patient is more comfortable after receiving pain medicine in the ED -Continue Cipro/Flagyl -IV fluids -Full liquid diet and advance as tolerated -Reviewed previous notes and patient had colonoscopy 04/18/2022 as he had a colonoscopy in 2014 with a small polyp which was ablated. Colonoscopy 04/19/2023 was normal I will send IBD SGI, ESR, CRP, lactate, LDH, ANCA antibodies and CHARITY with comprehensive panel. He may also need a capsule endoscopy versus upper or lower endoscopy. Charges/Coding Visit Charges Inpatient E&M: 88775 Init Hosp L3
[2023-11-02 14:10] LABS: Anti-Centromere B Ab <0.2 AI (0.0-0.9); Anti-Chromatin <0.2 AI (0.0-0.9); Anti-Jo <0.2 AI (0.0-0.9); Anti-Scleroderma-70 AB <0.2 AI (0.0-0.9); Anti-dsDNA Ab <1 IU/mL (0-9); RNP Ab 0.4 AI (0.0-0.9); SJOGREN'S Anti-SS-A test < 0.2 AI (0.0-0.9); SJOGREN'S Anti-SS-B test < 0.2 AI (0.0-0.9); Smith Ab <0.2 AI (0.0-0.9)
[2023-11-03 09:09] LABS: Albumin 3.4 g/dL (2.9-4.4); Alpha-1-Globulins 0.3 g/dL (0.0-0.4); Alpha-2-Globulins 0.6 g/dL (0.4-1.0); Carcinoembryonic Antigen 1.2 ng/mL (0.0-4.7); Deamidated Gliadin IgA 4 units (0-19); Deamidated Gliadin IgG 2 units (0-19); Endomysial Antibody IgA Negative (Negative); Gamma Globulin 0.6 g/dL (0.4-1.8); Immunoglobulin A 169 mg/dL (61-437); Immunoglobulin G 693 mg/dL (603-1613); Immunoglobulin M 60 mg/dL (20-172); PROEL- TOTAL PROTEIN 5.5 g/dL (6.0-8.5); QNTFERON TB Mitogen Value > 10.00 IU/mL (.); QNTFERON TB Nil Value 0.03 IU/mL (.); QNTFERON TB1+ Ag Value 0.01 IU/mL (.); QNTFERON TB2+ Ag Value 0.01 IU/mL (.); QNTIFERON TB Positive Criteria Negative (Negative); t-Transglutaminase IgA <2 U/mL (0-3)
[2023-11-06 11:09] LABS: ACCA 10 units (0-90); ALCA 3 units (0-60); AMCA 42 units (0-100); Cytoplasmic Ab (C-ANCA) <1:20 titer (Neg:<1:20); Perinuclear Ab (P-ANCA) <1:20 titer (Neg:<1:20); gASCA 30 units (0-50)
== END 2023-10-31 15:45 | disposition home or self-care (01) | DRG 387 ==
LOC: ED 16:25 → MS3 16:54
PROVIDERS: Internal Medicine Gastroenterology; Admitting Provider Internal Medicine; Emergency Provider Emergency Medicine; PCP Internal Medicine
DX: K50.018 Crohn's disease of small intestine with other complication (principal); C61 Malignant neoplasm of prostate; I10 Essential (primary) hypertension; Z95.3 Presence of xenogenic heart valve; F17.220 Nicotine dependence, chewing tobacco, uncomplicated; Z79.82 Long term (current) use of aspirin; Z79.899 Other long term (current) drug therapy; Z86.73 Personal history of transient ischemic attack (TIA), and cerebral infarction without residual deficits; Z87.74 Personal history of (corrected) congenital malformations of heart and circulatory system
CPT/HCPCS: 36415; 71275; 74174; 80048; 80053; 81001; 82378; 82784; 83516; 83605; 83615; 83690; 83735; 84165; 85025; 85652; 86036; 86140; 86225; 86235; 86255; 86256; 86334; 86480; 86671; 99285; J7030; Q9967; A4216; J0744; J2405

== ENCOUNTER → 2023-11-13 | Outpatient (CLI) | payer MEDICARE, SELFPAY ==
[2023-11-13 12:50] LABS: CRP < 2.90 mg/L (0.0-3.0); LDH 201 U/L (87-241)
== END | disposition home or self-care (01) ==
LOC: BIMLAB 10:28
PROVIDERS: PCP Internal Medicine; Referring Provider Nurse Practitioner; Visit Provider Nurse Practitioner
DX: R79.82 Elevated C-reactive protein (CRP) (principal); R10.13 Epigastric pain
CPT/HCPCS: 36415; 83615; 86140

== ENCOUNTER → 2024-06-23 | Outpatient (CLI) | payer MEDICARE, SELFPAY ==
[2024-06-23 17:05] LABS: Absolute Lymphocyte Count 1.36 X10^3/uL (0.83-4.51); Absolute Neutrophil Count 3.8 X10^3/uL (2.0-7.7); Basophil# 0.07 X10^3/uL; Basophil% 1.1 % (0-1); Eosinophil# 0.22 X10^3/uL; Eosinophils% 3.5 % (0-5); Hematocrit 39.9 % (40-54); Hemoglobin 13.5 g/dL (13.0-16.5); Lymphocyte # 1.36 X10^3/ul (0.83-4.51); Lymphocyte % 21.9 % (19-41); Mean Corp Hgb Conc 33.8 g/dL (32-36); Mean Corpuscular Hgb 30.6 pg (27.0-32.0); Mean Corpuscular Volume 90.5 fL (80-94); Mean Platelet Vol. 9.9 fl (6.2-12.0); Monocyte# 0.77 X10^3/uL; Monocyte% 12.4 % (0-10); NRBC Flagged by Analyzer 0 % (0-5); Neutrophil # 3.78 X10^3/uL (2.7-7.7); Neutrophil % 60.8 % (47-70); Platelet Count 187 K/mm3 (150-450); RBC Distribution Width CV 13.2 % (11.6-14.6); Red Blood Count 4.41 M/mm3 (4.6-6.2); White Blood Count 6.2 K/mm3 (4.4-11.0)
[2024-06-23 17:42] LABS: ALB/GLOB Ratio 1.9 RATIO (0.9-2.4); AST(SGOT) 41 U/L (<=37); Alanine Aminotransfer ALT/SGPT 32 U/L (<=46); Albumin, Serum 4.3 g/dL (3.4-4.8); Alkaline Phosphatase 78 U/L (40-129); Anion Gap 10 (5-15); BUN 26 mg/dL (4-19); BUN/Creat Ratio 26.7 RATIO (10-20); Calcium,Total 9.4 mg/dL (7.6-11.0); Carbon Dioxide 23.7 mmol/L (21.0-32.0); Chloride 106 mmol/L (98-108); Cholesterol 149 mg/dL (<=200); Creatinine, Serum 0.98 mg/dL (0.70-1.20); EST Glomerular Filtration Rate 83 (>60); Globulin 2.3 g/dL (2.2-4.2); Glucose 102 mg/dL (70-99); High Density Lipoprotein 89 mg/dL; Low Density Lipoprotein Calc. 44 mg/dL; Magnesium 2.2 mg/dL (1.5-2.2); Potassium 4.4 mmol/L (3.3-5.1); Protein, Total 6.7 g/dL (5.9-8.4); Sodium Level 140 mmol/L (133-145); Total Bilirubin 0.24 mg/dL (0.00-1.30); Triglycerides 83 mg/dL; Very Low Density Lipoprotein 17 mg/dL (5-40); Vitamin B12 503 pg/mL (180-914); cholesterol:hdl ratio screen 1.68
== END | disposition home or self-care (01) ==
LOC: BIMLAB 15:02
PROVIDERS: PCP Internal Medicine; Referring Provider Physician Assistant; Visit Provider Physician Assistant
DX: I10 Essential (primary) hypertension (principal); I63.9 Cerebral infarction, unspecified
CPT/HCPCS: 36415; 80053; 80061; 82607; 83735; 84443; 85025